=== PATIENT | male | born 1945 | race Caucasian/White ===

== ENCOUNTER → 2017-06-01 | Outpatient (CLI) | payer OTHER ==
[~2017-06-01] MED LIST: ASPEC81 PO; COLE625T PO; CRG25 PO; CRS10 PO; ENAL10TA88 PO; FURO80TA63 PO; HYDC25 PO; INDO-24 PO; MCR5 PO; POTA20TA16 PO; SITA100T3 PO; ULORIC PO
== END | disposition home or self-care (01) ==
LOC: C.MAMM 14:39
PROVIDERS: ATTEND Internal Medicine Endocrinology, Diabetes & Metabolism
DX: E21.3 Hyperparathyroidism, unspecified (principal)

== ENCOUNTER 2023-09-02 14:04 | Inpatient (IN) ==
--- NOTE | 2023-09-02 14:13 | ED Triage Note ---
Date of Service September 02, 2023 Provider in Triage Author: Chen Siddiqi History of Present Illness This patient was briefly evaluated while in triage. An abbreviated physical exam was performed. This patient is a 78-year-old Male who presents to the ED for evaluation of TAI x 3 weeks. Reports increased weight gain. On Lasix. Denies fevers, chest pain. Physical Exam Constitutional: alert and oriented x3. no acute distress. HEENT: normocephalic, atraumatic. normal conjunctiva.PERRLA. EOM's grossly intact. Respiratory:equal chest rise. normal respiratory effort, no accessory muscle use. Cardiovascular: regular rate and rhythm. MSK: moves all 4 extremities spontaneously Psych:appropriate mood and affect. Initial orders for labs and / or imaging were placed and patient was placed in the waiting area until a bed is available. Please see further documentation for the full ED course.
[2023-09-02 15:12] LABS: Base Excess VBG -0.8 mEq/L; HCO3 VBG 24 mmol/L; Oxygen Saturation VBG 73.6 %; PCO2 VBG 37 mmHg (38-50); PO2 VBG 46 mmHg; pH VBG 7.41 (7.36-7.41)
[2023-09-02 15:34] LABS: Alanine Aminotransferase 23 U/L (7-52); Albumin Globulin Ratio 1.4 (0.9-2); Albumin Level 3.7 gm/dl (3.4-5.0); Alkaline Phosphatase 57 U/L (34-104); Anion Gap 9 (3-11); Aspartate Aminotransferase 33 U/L (13-39); BUN Creatinine Ratio 36.9 (10-20); Bilirubin,Total 2.1 mg/dl (0.2-1.0); Blood Urea Nitrogen 55 mg/dl (6-23); Calcium 8.9 mg/dl (8.6-10.3); Carbon Dioxide 24 mmol/L (21-32); Chloride 99 mmol/L (98-107); Est GFR (African American) 51.7 ml/min; Est GFR (Non-African American) 44.6 ml/min; Globulin 2.6 gm/dl (2.5-4.0); Glucose 139 mg/dl (70-99(Fasting)); Sodium 132 mmol/L (136-145); Total Protein 6.3 gm/dl (6.0-8.3)
[2023-09-02 15:41] LABS: Troponin I High Sensitivity 24.4 pg/ml (0-20)
[2023-09-02 15:59] LABS: Adenovirus PCR Not Detected (NotDetected); Bordetella parapertussis PCR Not Detected (NotDetected); Bordetella pertussis PCR Not Detected (NotDetected); Chlamydia pneumoniae PCR Not Detected (NotDetected); Coronavirus 229E PCR Not Detected (NotDetected); Coronavirus CoV-2 (COVID19)PCR Not Detected (NotDetected); Coronavirus HKU1 PCR Not Detected (NotDetected); Coronavirus NL63 PCR Not Detected (NotDetected); Coronavirus OC43PCR Not Detected (NotDetected); Influenza A PCR Not Detected (NotDetected); Influenza B PCR Not Detected (NotDetected); Mycoplasma pneumoniae PCR Not Detected (NotDetected); Parainfluenza Virus 1 PCR Not Detected (NotDetected); Parainfluenza Virus 2 PCR Not Detected (NotDetected); Parainfluenza Virus 3 PCR Not Detected (NotDetected); Parainfluenza Virus 4 PCR Not Detected (NotDetected); Respiratory Syncytial VirusPCR Not Detected (NotDetected); Rhinovirus/Enterovirus PCR Not Detected (NotDetected)
[2023-09-02 16:00] LABS: INR 1.2 (0.9-1.1); Partial Thromboplastin Ratio 1.2; Partial Thromboplastin Time 33 Seconds (21-31); Prothrombin Time 12.6 Seconds (9.0-12.0)
[2023-09-02 16:05] LABS: Hematocrit (blood only) 32.2 % (42.0-52.0); Hemoglobin 10.7 g/dl (14.0-18.0); Mean Corpuscular Hemoglobin 29.7 pg (25.0-34.0); Mean Corpuscular Hgb Conc 33.2 g/dL (32.0-36.0); Mean Corpuscular Volume 89.4 fL (80.0-100.0); RDW Coefficient of Variation 16.6 % (11.5-14.5); RDW Standard Deviation 54.6 fL (36.4-46.3); White Blood Count 3.63 K/ul (4.8-10.8)
[2023-09-02 16:08] LABS: Acanthocytes 1+; Eosinophils # (auto) 0.05 K/uL (0.00-0.50); Eosinophils % (auto) 1.4 %; Human Metapneumovirus PCR DETECTED (NotDetected); Immature Granulocytes # (auto) 0.01 K/uL (0.01-0.20); Immature Granulocytes % (auto) 0.3 %; Lymphocytes # (auto) 0.42 K/uL (1.20-3.40); Lymphocytes % (auto) 11.6 %; Monocytes # (auto) 0.28 K/uL (0.11-0.59); Monocytes % (auto) 7.7 %; Neutrophils # (auto) 2.87 K/uL (1.40-6.50); Platelet Count 89 K/uL (130-400); Platelet Estimate Decreased (Normal); Tear Drop Cells 1+
--- NOTE | 2023-09-02 17:18 | XRay Report ---
XR chest 1V not portable CLINICAL HISTORY: Dyspnea TECHNIQUE: Single frontal radiograph of the chest was obtained. Comparison: None available at the time of this dictation. FINDINGS: No lines and tubes are seen. Cardiomegaly is noted. The lungs are clear. No evidence of pleural effus ion or pneumothorax. IMPRESSION: No acute chest disease. ACT 112: Negative or not required by law. Electronically signed by: Sukhjinder Alcazar M.D. 09/02/2023 5:17 PM
[2023-09-02] MEDS ORDERED: FUROSEMIDE 40 MG/4 ML VIAL IV ONE (19:18)
--- NOTE | 2023-09-02 19:37 | History & Physical Report ---
Date of Service September 02, 2023 Assessment & Plan (1) TAI (dyspnea on exertion): Plan: -Admit to med/tele on pulse oximetry -Currently hemodynamically stable and stable on RA -Has been experiencing progressive TAI, orthopnea, with increased non-productive cough for the past month -Likely multifactorial including acute human metapneumovirus infection and CHF exacerbation -He has rales and expiratory wheezing on exam, + JVD, and significant BL pitting edema -Patient confirms he has been gaining weight and becoming progressively more volume overloaded and was not taking additional doses of PO lasix as recommended by Cardiology -S/P one dose of 40 mg IV lasix in the ED, will continue with 40 mg IV BID17 for now -Will start incentive spirometry, flutter therapy, prn DuoNebs for his symptoms associated with human metapneumovirus -Lower suspiscion for PE at this time as he is without pleuritic chest pain, has been stable on RA, BP and HR WNL >Will obtain BL LE venous dopplers to monitor for DVT -Will obtain TTE tomorrow for further evaluation -Cardiology consult placed -Hold chemical DVT PPX for now with his new thrombocytopenia and MAIDA; start with BL AGGIE's -HH/DMII diet with 2gm sodium restriction and 1800 mL fluids restriction (2) MAIDA (acute kidney injury): Plan: -Patient's cr is 1.49 today, baseline is near 1.0 -Suspect this to be more associated with his congestive CHF and possible cardio- renal syndrome -Patient is volume overloaded on exam, has been taking most other medications as prescribed -Will obtain UA with electrolytes and renal US for further evaluation -Hold enalapril for now -Monitor renal function moving forward with continued diuresis (3) Volume overload: Plan: -Suspect this to mainly to be due to his known, severe, HFrEF and cardiomyopathy -However, with his thrombocytopenia and MAIDA, cannot rule out renal and hepatic etiologies at this time -Continue IV diuresis per TAI plan -Obtaining TTE, renal US, RUQ US as well -Monitor for improvement with continued diuresis -Cardiology consult placed (4) Thrombocytopenia: Plan: -Platelets noted to be 89 today -He does appear to have thrombocytopenia in the past, but platelets have never fallen below 124 previously -Could be due to acute viral illness -Will continue workup with RUQ us -Total bili is elevated but, this could be due to congestive hepatopathy or his known history of all other LFT's are WNL -Continue to monitor daily CBC and CMP (5) Hyponatremia: Plan: -Sodium of 132 today -suspect this is due to his volume overload with multiple possible etiologies -Will obtain serum osmolality, urine osmolality and electrolytes -Follow RUQ US -Monitor am sodium with IV diuresis (6) Elevated troponin: Plan: -Initial high sen trop elevated at 24 --> 24 on 2 hour repeat -Patient is without chest pain and acute ST segment or T-wave changes on ECG -Likely due to demand from volume overload -Continue to monitor on tele -TTE tomorrow, am trop (7) Infection due to human metapneumovirus (hMPV): Plan: -Positive today on full respiratory biofire -Does have expiratory wheezing on exam -Supportive treatment per TAI plan (8) Diabetes mellitus, type 2: Plan: -Has been controlling with diet and exercise -Glucose elevated at 139 today -Last Hgb A1c in May was 5.9 -Monitor BSG ACHS , goal is 110-140 -Start CF 50 ACHS for now -HH/DMII diet -Adjust regimen as needed (9) HFrEF (heart failure with reduced ejection fraction): Plan: -See TAI plan (10) Elevated bilirubin: Plan: -Elevated at 2.1 today -Has had a long hx of total bili in this range -Does have a known hx of Gilbert's syndrome -All other LFT's stable, no abd pain or jaundice -Follow liver workup and continue IV diuresis Plan The patient was discussed with Dr. Mccann at the time of the admission History of Present Illness Chief Complaint: TAI Primary Care Provider: Radha Banks MD Jonah Sandy (Jim) is a 78 year old male with a PMH significant for hypertension, DMII, hypercholesterolemia, systolic congestive heart failure, dilated cardiomyopathy (LVEF 25%, <20% December 2022), Gilbert's disease, Gout, and CKD who presented to the [facility] ED on 09/02/23 with a chief complaint of TAI. He remained stable in the ED. Labs were significant a thrombocytopenia of 89, lymphocyte count of 0.42, INR of 1.2, Cr of 1.49 (baseline is near 1.0), BUN of 55, sodium of 132, total bili of 2.1 with other LFT's WNL, initial high sen trop of 24, BNP of 4662, and full respiratory biofire positive for human metapneumovirus. Chest xray was read as "No acute chest disease.". Prior to admission the patient was given 40 mg IV lasix. At the time of the exam the patient was sitting in bed in no acute distress. He states that since Late July he has been gaining weight and has noticed increased BL LE swelling. In addition to these symptoms the patient states that he has intermittent episodes where he becomes SOB and feels as though he is having a panic attack. He states the majority of his TAI occurs while being active. When asked if he experiences orthopnea, the patient's response sounds similar. He states that he follows with Dr. Krishnamurthy and is supposed to take additional doses of his lasix after gaining 2lbs over his dry weight. He states that he did not do this recently as he thought he could improve him symptoms with lifestyle modifications. He has been controlling his DMII with diet and exercise as he previously lost 80 lbs. He has been experiencing a non-productive cough over the past 2-3 weeks but this has been worse over the past week. He denies recent fever, chills, chest pain, hemoptysis, abd pain, nausea, vomiting, diarrhea, dysuria, hematuria, melena, and recent trauma. He wishes to be a full code. Please refer to Dr. Mccann's attestation for any changes to the treatment plan Allergies Allergy/AdvReac Type Severity Reaction Status Date / Time No Known Drug Allergies Allergy Unknown Verified 09/02/23 19:53 Home Medications Medication Instructions Recorded Confirmed Type multivitamin (Daily Multi-Vitamin 1 tab PO 1200 03/02/19 09/02/23 History tablet) aspirin 81 mg tablet,delayed 81 mg PO 1200 07/12/19 09/02/23 History release (Irineo Low Dose Aspirin) cholecalciferol (vitamin D3) 125 5,000 unit PO DAILY 12/12/20 09/02/23 History mcg (5,000 unit) capsule omega-3 fatty acids 1,000 mg 1,000 mg PO DAILY 12/12/20 09/02/23 History capsule (Fish Oil Concentrate) lutein-zeaxanthin 1 cap PO DAILY 03/13/21 09/02/23 History baclofen 10 mg tablet 10 mg PO BID PRN muscle spasms 06/10/22 09/02/23 History Vitamin E 80 mg PO DAILY 03/10/23 09/02/23 History ascorbic acid (vitamin C) 100 mg 100 mg PO DAILY 03/10/23 09/02/23 History chewable tablet copper gluconate 2 mg tablet 2 mg PO DAILY 03/10/23 09/02/23 History zinc acetate 50 mg (zinc) capsule 50 mg PO DAILY 03/10/23 09/02/23 History allopurinol 100 mg tablet 50 mg PO BID 06/09/23 09/02/23 History carvedilol 25 mg tablet 25 mg PO BID #180 tabs 08/20/23 09/02/23 Rx enalapril maleate 10 mg tablet 10 mg PO DAILY #90 tabs 08/20/23 09/02/23 Rx potassium chloride 10 mEq 20 meq (2 x 10 mEq) PO DAILY #180 08/20/23 09/02/23 Rx tablet,extended release tabs atorvastatin 10 mg tablet 10 mg PO QPM 09/02/23 09/02/23 History furosemide 40 mg tablet 60 mg PO QPM 09/02/23 09/02/23 History gemfibrozil 600 mg tablet 150 mg PO BID 09/02/23 09/02/23 History Past Med/Surg History Medical History Abnormal CBC Gout Gilbert disease Fatty liver Hypertension Hyperlipidemia Arrhythmia "irregular" - Follows with Dr. Krishnamurthy Spindle cell carcinoma Basal cell carcinoma Diabetes mellitus, type 2 niddm Congestive heart failure Surgical History S/P wisdom tooth extraction History of liver biopsy History of colonoscopy History of cardiac cath 2004. no stents Status post Mohs surgery x6 Family History Father Hearing loss Hypertension Mother Brain tumor Other No family history of adverse response to anesthesia No family history of bleeding disorder Denies family history of Ovarian cancer Prostate cancer Myocardial infarction Breast cancer Colorectal cancer Social History Smoking Status: Never smoker Second Hand Exposure: No; Do You Dip or Chew Tobacco: No; Hx Alcohol Use: No Hx Substance Use: No Preferred Language: Czech Communication Ability: Effective Visual Impairment: No Limitations Hearing Ability: Normal Decision Support Analyst Required: No Beliefs That Will Affect Care: None marital status: Current Living Situation: Alone current occupational status: retired How many Children do You have: 1 Feels Safe at Home: Yes Childhood Exposure to Second-Hand Smoke: No Diet: Weight Watchers caffeine: Yes (tea) during the past year weight has: remained stable Dental Care, Regularly: Yes Physical Activity Frequency: Daily Physical Activity Frequency Comment: Does Fit for Play. Seatbelt Use: always Sunscreen Use: No Assistive Devices: Cane, Glasses, Scooter/Electric Scooter and Walker Physical Exam Physical Exam: Physical Exam: General: In no acute distress, stated age, well-nourished, good hygiene HEENT: Normocephalic, atraumatic, no scleral icterus, pupils around round, symmetrical, and reactive to light, +JVD, moist mucus membranes, trachea midline, no thyromegaly Chest/Pulm: No respiratory distress, symmetrical chest expansion, rales and expiratory wheezing noted throughout Cardiac: RRR, 4/6 systolic murmur noted Abdomen: Negative for ascites and bruising, normoactive bowel sounds, soft, non-tender to palpation throughout Musculoskeletal: Symmetrical and without signs of acute trauma, upper and lower extremities with full ROM, no atrophy, spasticity, or flaccidity Extremities: Radial, dorsalis pedis, and posterior tibial pulses are intact and symmetrical, 2-3+ pitting edema noted in the BL LE's Skin: Warm, dry, no rashes , lesions, or scars noted Neuro: Alert and oriented to person, place, month, year, and president, no focal defects, no tremors noted Psych: No acute distress, calm and cooperative during the exam Results & Data Results & Data Vital Signs (Past 12 Hours) Vital Signs Temp Pulse Resp BP Pulse Ox O2 Del Method 09/02/23 14:10 36.8 C 62 20 96/63 L 99 Room Air Laboratory Results Abnormal lab results 09/02/23 09/02/23 Range/Units 14:51 19:33 WBC 3.63 L (4.8-10.8) K/ul RBC 3.60 L (4.70-6.10) M/uL Hgb 10.7 L (14.0-18.0) g/dl Hct 32.2 L (42.0-52.0) % RDW Std Deviation 54.6 H (36.4-46.3) fL RDW Coeff of Candido 16.6 H (11.5-14.5) % Plt Count 89 L (130-400) K/uL MPV 13.0 H (9.4-12.4) fL Lymph # (Auto) 0.42 L (1.20-3.40) K/uL Platelet Estimate Decreased L (Normal) PT 12.6 H (9.0-12.0) Seconds INR 1.2 H (0.9-1.1) APTT 33 H (21-31) Seconds VBG pCO2 37 L (38-50) mmHg Sodium 132 L (136-145) mmol/L BUN 55 H (6-23) mg/dl Creatinine 1.49 H (0.6-1.4) mg/dl BUN/Creatinine Ratio 36.9 H (10-20) Glucose 139 H (70-99(Fasting)) mg/dl Total Bilirubin 2.1 H (0.2-1.0) mg/dl Troponin I High Sens 24.4 H 24.7 H (0-20) pg/ml B-Natriuretic Peptide 4662 H (0-100) pg/ml Human Metapneumovir PCR DETECTED A* (NotDetected) Diagnostic Findings Chest X-Ray 09/02/23 14:13 XR chest 1V not portable CLINICAL HISTORY: Dyspnea TECHNIQUE: Single frontal radiograph of the chest was obtained. Comparison: None available at the time of this dictation. FINDINGS: No lines and tubes are seen. Cardiomegaly is noted. The lungs are clear. No evidence of pleural effusion or pneumothorax. IMPRESSION: No acute chest disease. ACT 112: Negative or not required by law. Electronically signed by: Sukhjinder Alcazar M.D. 09/02/2023 5:17 PM ECG Additional Comments: Sinus bradycardia with 1st degree A-V block with occasional Premature ventricular complexes Left axis deviation Left bundle branch block Abnormal ECG When compared with ECG of 23-MAR-2010 17:09, Premature ventricular complexes are now Present WA interval has increased T wave inversion less evident in Lateral leads Code Status & VTE Plan Code Status Full code VTE Prophylaxis Plan VTE Prophylaxis will be ordered: Yes Supervising Physician Co-Signing Physician Notes Attending addendum: I have physically seen this patient, have supervised the PAULETTE's activities, and agree with the H&P unless as otherwise noted. Assessment and Plan: Elevated troponin/CHF/hypertension/HFrEF/cardiomyopathy- The patient will be admitted to telemetry for serial cardiac enzymes, serial EKG's, cardiac rhythm monitoring and a 2-D echocardiogram with Dopplers. Status post Lasix 40 mg IV in ED Hold further Lasix until response assessed Holding enalapril Continue carvedilol and aspirin Resume oral furosemide 60 mg daily tomorrow Acute kidney injury- Creatinine 1.49, with base 1.17 Follow closely while being diuresed Human metapneumir virus- May be contributing to physiologic stress Duonebs every 4 hours while awake and every 2 hours when necessary Guaifenesin extended release 12 1 mg p.o. twice daily Incentive spirometry, flutter therapy Diabetes mellitus- Diet controlled Remaining orders and notations as noted PG Care Time/CCT Total # of Minutes Spent Total Time Spent with Patient: Total time spent is greater than 50% in coordination of care (as documented) at patient's floor/unit and/or counseling patient: Coding [place] [address] INT INP/OBS CARE 3/75MIN Patient Type Established Medical Decision Making High Complexity Diagnoses TAI (dyspnea on exertion) R06.09 MAIDA (acute kidney injury) N17.9 Volume overload E87.70 Thrombocytopenia D69.6 Hyponatremia E87.1 Elevated troponin R79.89 Infection due to human metapneumovirus (hMPV) B34.8 Type 2 diabetes mellitus with chronic kidney disease, without long-term current use of insulin, unspecified CKD stage E11.22 Chronic kidney disease stage: unspecified stage Diabetes mellitus complication detail: with chronic kidney disease Diabetes mellitus complication status: with kidney complications Diabetes mellitus commission for the blind director insulin use: without commission for the blind director use HFrEF (heart failure with reduced ejection fraction) I50.20 Elevated bilirubin R17 (8) Diabetes mellitus, type 2 Chronic kidney disease stage: unspecified stage Diabetes mellitus complication detail: with chronic kidney disease Diabetes mellitus complication status: with kidney complications Diabetes mellitus commission for the blind director insulin use: without commission for the blind director use Qualified Code(s): E11.22 - Type 2 diabetes mellitus with diabetic chronic kidney disease
[2023-09-02 20:16] LABS: Troponin I High Sensitivity 24.7 pg/ml (0-20)
[2023-09-02] MEDS ORDERED: ACETAMINOPHEN 325 MG TAB PO PRN (20:27)
[2023-09-02] MEDS ORDERED: ALBUT/IPRATROP 3MG/0.5MG NEB 3 ML VIAL NEB STA (20:32)
[2023-09-02] MEDS ORDERED: GLUCAGON FOR INJ 1 MG VIAL SQ PRN (20:33)
[2023-09-02] MEDS ORDERED: DEXTROSE 50% 50 ML SYRINGE IV PRN (20:33)
[2023-09-02] MEDS ORDERED: GLUCOSE 10 TAB/TUBE PO PRN (20:33)
[2023-09-02] MEDS ORDERED: GLUCOSE 40% GEL 15 GM TUBE PO PRN (20:33)
[2023-09-02] MEDS ORDERED: CARBOHYDRATES FOR HYPOGLYCEMIA PO PRN (20:33)
[2023-09-02] MEDS ORDERED: guaiFENesin SUGAR FREE 200 MG/10 ML UDC PO PRN (20:42)
[2023-09-02 21:13] LABS: Appearance Urine Clear (Clear); Bilirubin Urine Negative (Negative); Blood Urine Negative (Negative); Color Urine Yellow; Glucose Urine UA Negative (Negative); Ketones Urine Negative (Negative); Leukocyte Esterase Urine Negative (Negative); Nitrite Urine Negative (Negative); Protein Urine Negative (Negative); Specific Gravity Urine 1.008 (1.000-1.030); Urobilinogen Urine Negative (Negative)
[2023-09-02 21:15] LABS: Sodium Random Urine 52 mmol/L; Total Protein Urine Random < 4.0 mg/dl (0-11.9)
--- NOTE | 2023-09-02 21:22 | Emergency Department Note ---
History of Present Illness General Chief Complaint: Flu Like Symptoms Stated Complaint: COUGH, NOSE RUNNING Time Seen by Provider: 09/02/23 14:48 History of Present Illness Provider Complaint: shortness of breath and cough Onset (ago): week(s) (3) Consistency/Duration: + progressively worsening Relieved By: + rest Exacerbated By: + exertion and + coughing Known history of: congestive heart failure Associated symptoms: + cough, + wheezing, + sputum production and + chest congestion; no chest pain, no pain with inspiration, no fever, no orthopnea, no hemoptysis, no nausea/vomiting or no abdominal pain Related Data Home oxygen amount: none Home Medications Medication Instructions Recorded Confirmed Type multivitamin (Daily Multi-Vitamin 1 tab PO 1200 03/02/19 09/02/23 History tablet) aspirin 81 mg tablet,delayed 81 mg PO 1200 07/12/19 09/02/23 History release (Irineo Low Dose Aspirin) cholecalciferol (vitamin D3) 125 5,000 unit PO DAILY 12/12/20 09/02/23 History mcg (5,000 unit) capsule omega-3 fatty acids 1,000 mg 1,000 mg PO DAILY 12/12/20 09/02/23 History capsule (Fish Oil Concentrate) lutein-zeaxanthin 1 cap PO DAILY 03/13/21 09/02/23 History baclofen 10 mg tablet 10 mg PO BID PRN muscle spasms 06/10/22 09/02/23 History Vitamin E 80 mg PO DAILY 03/10/23 09/02/23 History ascorbic acid (vitamin C) 100 mg 100 mg PO DAILY 03/10/23 09/02/23 History chewable tablet copper gluconate 2 mg tablet 2 mg PO DAILY 03/10/23 09/02/23 History zinc acetate 50 mg (zinc) capsule 50 mg PO DAILY 03/10/23 09/02/23 History allopurinol 100 mg tablet 50 mg PO BID 06/09/23 09/02/23 History carvedilol 25 mg tablet 25 mg PO BID #180 tabs 08/20/23 09/02/23 Rx enalapril maleate 10 mg tablet 10 mg PO DAILY #90 tabs 08/20/23 09/02/23 Rx potassium chloride 10 mEq 20 meq (2 x 10 mEq) PO DAILY #180 08/20/23 09/02/23 Rx tablet,extended release tabs atorvastatin 10 mg tablet 10 mg PO QPM 09/02/23 09/02/23 History furosemide 40 mg tablet 60 mg PO QPM 09/02/23 09/02/23 History gemfibrozil 600 mg tablet 150 mg PO BID 09/02/23 09/02/23 History Allergies Allergy/AdvReac Type Severity Reaction Status Date / Time No Known Drug Allergies Allergy Unknown Verified 09/02/23 19:53 Past Med/Surg History Medical History Abnormal CBC Gout Gilbert disease Fatty liver Hypertension Hyperlipidemia Arrhythmia "irregular" - Follows with Dr. Krishnamurthy Spindle cell carcinoma Basal cell carcinoma Diabetes mellitus, type 2 niddm Congestive heart failure Surgical History S/P wisdom tooth extraction History of liver biopsy History of colonoscopy History of cardiac cath 2004. 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 Seatbelt Use: always Sunscreen Use: No Assistive Devices: Cane, Glasses, Scooter/Electric Scooter and Walker Physical Exam 2 Vital Signs: Vital Signs - 24 hr 09/02/23 14:10 09/02/23 19:36 09/02/23 21:00 Temperature 36.8 C Temperature Source Temporal Artery Sc an Pulse Rate 62 Respiratory Rate 20 Respiratory Effort / Characteristics Spontaneous Respiratory Depth Normal Respiratory Patter n Regular Blood Pressure 96/63 L Blood Pressure [Ri ght Arm] 137/88 Blood Pressure Fany n 74 Blood Pressure Fany n [Right Arm] 104 Blood Pressure Pos ition Sitting Pulse Oximetry 99 96 Oxygen Delivery Me thod Room Air Room Air Sepsis Recent Feve r Within 48 Hours No Sepsis New/Unexpla ined Change in Men ventura Status No Sepsis Action Take n by Nursing No Action Required Physical Exam: Physical Exam GENERAL: oriented to person, place, and time. appears well-developed and well- nourished. HENT: Exam performed. - Head: Normocephalic and atraumatic. EYES: Conjunctivae and EOM are normal. Right eye exhibits no discharge. Left eye exhibits no discharge. No scleral icterus. NECK: Normal range of motion. Neck supple. No JVD present. CV: Normal rate, regular rhythm, normal heart sounds and intact distal pulses. There is no peripheral edema. Palpable radial pulses bue. PULM/CHEST: Rhonchi bilaterally ABD: The abdomen is soft. There is no tenderness. NEURO: Motor and sensation grossly intact. SKIN: Skin is warm and dry. He is not diaphoretic. PSYCH: normal mood and affect. Behavior is normal. Judgment and thought content normal. Course Course 1448: The patient was evaluated in room D7. A complete history and physical exam was performed Cardiac monitoring: An order was placed for continuous cardiac monitoring. The monitor shows a rate of 60 with sinus rhythm interpreted by pa 1915: Vital signs stable. Labs show an elevated troponin and elevated proBNP. Chest x-ray viewed by pa shows cardiomegaly with cephalization. Patient is positive for human metapneumovirus. Is thought that the patient's human metapneumovirus could have exacerbated his CHF exacerbation. Given his poor ejection fraction elevated proBNP and elevated troponin as well as symptoms. Patient will be admitted for diuresis. [facility] hospitalist team contacted. Administered Medications Discontinued Medications Furosemide (Furosemide 40 Mg/4 Ml Vial) 40 mg IV ONE ONE Stop: 09/02/23 19:19 Last Admin: 09/02/23 19:35 Dose: 40 mg Documented By: ALEJANDRA Medical Decision Making Medical Records Attestation: I reviewed the patient's medical records. External medical records reviewed. Patient has an echo from December 2022 which shows an ejection fraction between 15 and 20% as well as severe global hypokinesis of the left ventricle with reduced ventricular systolic function. There is moderate to severe mitral regurgitation as well as mild to moderate tricuspid regurgitation with no significant change from the echocardiogram performed on November 23, 2009 Laboratory Data Attestation: I reviewed the patient's lab results. 09/02/23 14:51 09/02/23 14:51 Lab Results 09/02/23 09/02/23 09/02/23 Range/Units 14:51 19:33 20:28 WBC 3.63 L (4.8-10.8) K/ul RBC 3.60 L (4.70-6.10) M/uL Hgb 10.7 L (14.0-18.0) g/dl Hct 32.2 L (42.0-52.0) % MCV 89.4 (80.0-100.0) fL MCH 29.7 (25.0-34.0) pg MCHC 33.2 (32.0-36.0) g/dL RDW Std Deviation 54.6 H (36.4-46.3) fL RDW Coeff of Candido 16.6 H (11.5-14.5) % Plt Count 89 L (130-400) K/uL MPV 13.0 H (9.4-12.4) fL Immature Gran % (Auto) 0.3 % Neut % (Auto) 79.0 % Lymph % (Auto) 11.6 % [place] % (Auto) 7.7 % Eos % (Auto) 1.4 % Baso % (Auto) 0.0 % Neut # (Auto) 2.87 (1.40-6.50) K/uL Lymph # (Auto) 0.42 L (1.20-3.40) K/uL [place] # (Auto) 0.28 (0.11-0.59) K/uL Eos # (Auto) 0.05 (0.00-0.50) K/uL Baso # (Auto) 0.00 (0.00-0.20) K/uL Immature Gran # (Auto) 0.01 (0.01-0.20) K/uL Platelet Estimate Decreased L (Normal) Tear Drop Cells 1+ Acanthocytes (Spur) 1+ PT 12.6 H (9.0-12.0) Seconds INR 1.2 H (0.9-1.1) APTT 33 H (21-31) Seconds PTT Ratio 1.2 VBG pH 7.41 (7.36-7.41) VBG pCO2 37 L (38-50) mmHg VBG pO2 46 mmHg VBG HCO3 24 mmol/L VBG O2 Saturation 73.6 % VBG Base Excess -0.8 mEq/L Sodium 132 L (136-145) mmol/L Potassium 4.0 (3.5-5.1) mmol/L Chloride 99 (98-107) mmol/L Carbon Dioxide 24 (21-32) mmol/L Anion Gap 9 (3-11) BUN 55 H (6-23) mg/dl Creatinine 1.49 H (0.6-1.4) mg/dl Est Cr Clr Drug Dosing Not Reportable Est GFR ( Amer) 51.7 ml/min Est GFR (Non-Af Amer) 44.6 ml/min BUN/Creatinine Ratio 36.9 H (10-20) Glucose 139 H (70-99(Fasting)) mg/dl Osmolality 297 (280-300) mOsm/kg Calcium 8.9 (8.6-10.3) mg/dl Magnesium 2.0 (1.7-2.4) mg/dl Total Bilirubin 2.1 H (0.2-1.0) mg/dl AST 33 (13-39) U/L ALT 23 (7-52) U/L Alkaline Phosphatase 57 (34-104) U/L Troponin I High Sens 24.4 H 24.7 H (0-20) pg/ml B-Natriuretic Peptide 4662 H (0-100) pg/ml Total Protein 6.3 (6.0-8.3) gm/dl Albumin 3.7 (3.4-5.0) gm/dl Globulin 2.6 (2.5-4.0) gm/dl Albumin/Globulin Ratio 1.4 (0.9-2) Urine Color Yellow Urine Appearance Clear (Clear) Urine pH 6.0 (4.5-7.5) Ur Specific [place] 1.008 (1.000-1.030) Urine Protein Negative (Negative) Urine Glucose (UA) Negative (Negative) Urine Ketones Negative (Negative) Urine Blood Negative (Negative) Urine Nitrite Negative (Negative) Urine Bilirubin Negative (Negative) Urine Urobilinogen Negative (Negative) Ur Leukocyte Esterase Negative (Negative) Urine Osmolality 285 L (500-800) mOsm/kg U Random Total Protein < 4.0 (0-11.9) mg/dl Ur Random Sodium 52 mmol/L Adenovirus (PCR) Not Detected (NotDetected) B. pertussis DNA (PCR) Not Detected (NotDetected) B.parapertussis DNA PCR Not Detected (NotDetected) C. pneumoniae DNA (PCR) Not Detected (NotDetected) Coronavirus OC43 (PCR) Not Detected (NotDetected) Coronavirus HKU1 (PCR) Not Detected (NotDetected) Coronavirus 229E (PCR) Not Detected (NotDetected) SARS-CoV-2 (PCR) Not Detected (NotDetected) Coronavirus NL63 (PCR) Not Detected (NotDetected) Human Metapneumovir PCR DETECTED A* (NotDetected) Influenza Type A (PCR) Not Detected (NotDetected) Influenza Type B (PCR) Not Detected (NotDetected) M. pneumoniae (PCR) Not Detected (NotDetected) Parainfluenza 1 (PCR) Not Detected (NotDetected) Parainfluenza 2 (PCR) Not Detected (NotDetected) Parainfluenza 3 (PCR) Not Detected (NotDetected) Parainfluenza 4 (PCR) Not Detected (NotDetected) RSV (PCR) Not Detected (NotDetected) Entero/Rhino (PCR) Not Detected (NotDetected) Imaging Data My Impression: Chest x-ray: Cardiomegaly with cephalization Radiologist's Impression: Chest X-Ray 09/02/23 14:13 XR chest 1V not portable CLINICAL HISTORY: Dyspnea TECHNIQUE: Single frontal radiograph of the chest was obtained. Comparison: None available at the time of this dictation. FINDINGS: No lines and tubes are seen. Cardiomegaly is noted. The lungs are clear. No evidence of pleural effusion or pneumothorax. IMPRESSION: No acute chest disease. ACT 112: Negative or not required by law. Electronically signed by: Sukhjinder Alcazar M.D. 09/02/2023 5:17 PM ECG Data Attestation: I personally reviewed and interpreted this ECG as follows: Interpretation: EKG at 1440: Sinus rhythm with a rate of 59. MS 240 QRS 204 QTc 534. Left bundle branch block present. sgarbosa negative. No previous EKGs for comparison [facility] Narrative 1448: The patient was evaluated in room D7. A complete history and physical exam was performed Cardiac monitoring: An order was placed for continuous cardiac monitoring. The monitor shows a rate of 60 with sinus rhythm interpreted by me 1915: Vital signs stable. Labs show an elevated troponin and elevated proBNP. Chest x-ray viewed by me shows cardiomegaly with cephalization. Patient is positive for human metapneumovirus. Is thought that the patient's human metapneumovirus could have exacerbated his CHF exacerbation. Given his poor ejection fraction elevated proBNP and elevated troponin as well as symptoms. Patient will be admitted for diuresis. [facility] hospitalist team contacted. Impression & Plan Congestive heart failure Discharge Plan Visit Data Chief Complaint: Flu Like Symptoms Stated Complaint: COUGH, NOSE RUNNING ED Provider: Alo Hernandez Discharge Problem: Congestive heart failure Patient Disposition: Admitted As Inpatient Forms Stand Alone Forms: My [facility] Prescriptions Prescriptions: No Action carvedilol 25 mg tablet 25 mg PO BID Qty: 180 3RF enalapril maleate 10 mg tablet 10 mg PO DAILY Qty: 90 3RF potassium chloride 10 mEq tablet extended release 20 meq PO DAILY Qty: 180 3RF baclofen 10 mg tablet 10 mg PO BID PRN (Reason: muscle spasms) cholecalciferol (vitamin D3) 125 mcg (5,000 unit) capsule 5,000 unit PO DAILY omega-3 fatty acids [Fish Oil Concentrate] 1,000 mg capsule 1,000 mg PO DAILY allopurinol 100 mg tablet 50 mg PO BID Rx Instructions: Take 1/2 a tablet in the morning and 1/2 a tablet at night. multivitamin [Daily Multi-Vitamin] tablet 1 tab PO 1200 lutein-zeaxanthin 1 cap PO DAILY Rx Instructions: 1 25 mg-5 mg tab daily ascorbic acid (vitamin C) 100 mg tablet,chewable 100 mg PO DAILY copper gluconate 2 mg tablet 2 mg PO DAILY zinc acetate 50 mg (zinc) capsule 50 mg PO DAILY Vitamin E 80 mg PO DAILY aspirin [Irineo Low Dose Aspirin] 81 mg Tablet,Delayed Release (Dr/Ec) 81 mg PO 1200 furosemide 40 mg tablet 60 mg PO QPM atorvastatin 10 mg tablet 10 mg PO QPM gemfibrozil 600 mg tablet 150 mg PO BID Rx Instructions: 150 mg PO BID 30 MINUTES BEFORE MEALS Referrals Referrals: Radha Banks MD [Primary Care Provider] -
[2023-09-02 21:26] LABS: Creatinine Urine Random 25.5 mg/dl
[2023-09-02] MEDS: INSULIN ASPART PER UNIT CHARGE SC SCH (22:03)
--- NOTE | 2023-09-02 23:52 | Ultrasound Report ---
Exam(s): US VENOUS BILATERAL LOWER EXTREMITIES EXAM: US Duplex Bilateral Lower Extremities Veins CLINICAL HISTORY: TAI, LE swelling. TECHNIQUE: Real-time duplex ultrasound scan of the bilateral lower extremity veins integrating B-mode two-dimensional vascular structure, Doppler spectral analysis, color flow Doppler imaging and compression. COMPARISON: No relevant prior studies available. FINDINGS: Right deep veins: Unremarkable. No DVT in the right common femoral, femoral, proximal deep femoral or popliteal veins. The veins demonstrate normal color flow, are normally compressible, with normal phasic flow and/or augmentation response. The interrogated calf veins are patent. Right superficial veins: Unremarkable. No thrombus in the saphenofemoral junction. Left deep veins: Unremarkable. No DVT in the left common femoral, femoral, proximal deep femoral or popliteal veins. The veins demonstrate normal color flow, are normally compressible, with normal phasic flow and/or augmentation response. The interrogated calf veins are patent. Left superficial veins: Unremarkable. No thrombus in the saphenofemoral junction. Soft tissues: Subcutaneous edema noted at the calves bilaterally. No popliteal cyst. IMPRESSION: No evidence for deep vein thrombosis involving the bilateral lower extremities. Electronically signed by: Benja Mckinney MD 09/02/23 23:51 PM
--- NOTE | 2023-09-02 23:56 | Ultrasound Report ---
Exam(s): US LIVER EXAM: US Abdomen Limited CLINICAL HISTORY: thrombocytopenia. TECHNIQUE: Real-time ultrasound of the abdomen with image documentation. COMPARISON: No relevant prior studies available. FINDINGS: Liver: The liver is hyperechoic, measuring 15.1 cm. No free fluid. The portal vein is pain with flow directed towards the liver. Gallbladder: Echogenic gallstones and sludge noted in the gallbladder. The gallbladder wall is abnormally thickened, measuring 6 mm. No pericholecystic fluid. There is a reported negative sonographic Kate sign. Common bile duct: The common bile duct is within normal limits for the patient's age measuring 5.5 mm. Pancreas: The pancreas is obscured by bowel gas pattern. IMPRESSION: 1. Echogenic gallstones and sludge noted in the gallbladder. The gallbladder wall is abnormally thickened, measuring 6 mm. While there are no other findings to suggest acute cholecystitis, abnormal gallbladder wall thickening is suggestive of acute cholecystitis. The sensitivity of this finding is diminished in the setting of cirrhosis or low plasma proteins. 2. No biliary dilatation. 3. The liver is hyperechoic suggesting hepatic steatosis. Electronically signed by: Benja Mckinney MD 09/02/23 23:55 PM
--- NOTE | 2023-09-03 | Ultrasound Report ---
Exam(s): US RENAL EXAM: US Retroperitoneal Limited, Renal CLINICAL HISTORY: MAIDA. TECHNIQUE: Real-time limited ultrasound of the retroperitoneum with image documentation. COMPARISON: No relevant prior studies available. FINDINGS: Right kidney: The right kidney measures 11.4 cm in length. Right renal pelviectasis measuring 1.5 cm in AP diameter. No calyceal dilatation. There is a simple cyst involving the lateral aspect of the right kidney measuring 13 x 16 mm. No stones. Left kidney: The left kidney measures 10.6 cm in length. No stones. No hydronephrosis. Bladder: The bladder is moderately distended without wall abnormalities or calcifications. The ureteral jets are not identified. IMPRESSION: 1. Distention of the right renal pelvis is nonspecific but presumed normal variation without coexisting calyceal dilatation. No obstructive nephrolithiasis noted bilaterally. 2. Incidental cortical cyst involving the lateral aspect of the right kidney measuring 1.3 x 1.6 cm. 3. The bladder is unremarkable. Electronically signed by: Benja Mckinney MD 09/02/23 23:59 PM
[2023-09-03] MEDS ORDERED: ALBUT/IPRATROP 3MG/0.5MG NEB 3 ML VIAL NEB PRN (00:09)
[2023-09-03] MEDS: carvediloL 25 MG TAB PO SCH ×3 (01:10→20:31)
[2023-09-03 01:47] LABS: Albumin Level 3.9 gm/dl (3.4-5.0); Anion Gap 14 (3-11); BUN Creatinine Ratio 39.4 (10-20); Blood Urea Nitrogen 56 mg/dl (6-23); Calcium 9.2 mg/dl (8.6-10.3); Carbon Dioxide 18 mmol/L (21-32); Chloride 101 mmol/L (98-107); Est GFR (African American) 54.8 ml/min; Est GFR (Non-African American) 47.3 ml/min; Glucose 92 mg/dl (70-99(Fasting)); Magnesium 2.2 mg/dl (1.7-2.4); Phosphorus 3.8 mg/dl (2.5-4.9); Potassium 4.2 mmol/L (3.5-5.1); Sodium 133 mmol/L (136-145)
[2023-09-03] MEDS: ATORVASTATIN 10 MG TAB PO SCH ×2 (02:06→20:31)
[2023-09-03] MEDS: allopurinoL 100 MG TAB PO SCH ×3 (02:06→20:31)
[2023-09-03 05:10] LABS: Basophils # (auto) 0.01 K/uL (0.00-0.20); Basophils % (auto) 0.3 %; Eosinophils % (auto) 3.1 %; Hematocrit (blood only) 31.5 % (42.0-52.0); Hemoglobin 10.2 g/dl (14.0-18.0); Lymphocytes # (auto) 0.57 K/uL (1.20-3.40); Lymphocytes % (auto) 17.7 %; Mean Corpuscular Hemoglobin 29.4 pg (25.0-34.0); Mean Corpuscular Hgb Conc 32.4 g/dL (32.0-36.0); Mean Corpuscular Volume 90.8 fL (80.0-100.0); Mean Platelet Volume 11.8 fL (9.4-12.4); Monocytes # (auto) 0.36 K/uL (0.11-0.59); Monocytes % (auto) 11.2 %; Neutrophils # (auto) 2.18 K/uL (1.40-6.50); Neutrophils % (auto) 67.7 %; Platelet Count 85 K/uL (130-400); RDW Coefficient of Variation 16.6 % (11.5-14.5); RDW Standard Deviation 55.2 fL (36.4-46.3); Red Blood Count 3.47 M/uL (4.70-6.10); White Blood Count 3.22 K/ul (4.8-10.8)
[2023-09-03 05:25] LABS: Albumin Globulin Ratio 1.4 (0.9-2); Albumin Level 3.4 gm/dl (3.4-5.0); BUN Creatinine Ratio 39.6 (10-20); Bilirubin,Total 1.8 mg/dl (0.2-1.0); Calcium 8.9 mg/dl (8.6-10.3); Creatinine Clr Calc Pharmacy 47.4 ml/min; Est GFR (African American) 56.3 ml/min; Est GFR (Non-African American) 48.5 ml/min; Globulin 2.4 gm/dl (2.5-4.0); Magnesium 2.1 mg/dl (1.7-2.4); Potassium 3.4 mmol/L (3.5-5.1); Total Protein 5.8 gm/dl (6.0-8.3)
[2023-09-03 05:31] LABS: Troponin I High Sensitivity 27.4 pg/ml (0-20)
[2023-09-03 05:45] LABS: INR 1.2 (0.9-1.1)
[2023-09-03 07:16] LABS: Estimated Average Glucose 126 mg/dl
[2023-09-03] MEDS ORDERED: POTASSIUM CHLORIDE CRTAB 20 MEQ TABCR PO STA (08:28)
[2023-09-03] MEDS: gemfibroziL 600 MG TAB PO SCH ×2 (08:31→17:39)
[2023-09-03] MEDS: ASCORBIC ACID 500 MG TAB PO SCH (09:32)
[2023-09-03] MEDS: TOCOPHERYL, DL-ALPHA 100 UNITS 67 MG CAP PO SCH (09:32)
[2023-09-03] MEDS: ZINC SULFATE 220 MG CAPSULE PO SCH (09:32)
[2023-09-03] MEDS: FUROSEMIDE 40 MG/4 ML VIAL IV SCH ×2 (09:37→17:39)
[2023-09-03] MEDS: POTASSIUM CHLORIDE CRTAB 20 MEQ TABCR PO SCH (10:05)
[2023-09-03] MEDS: INSULIN ASPART PER UNIT CHARGE SC SCH ×4 (10:13→20:33)
--- NOTE | 2023-09-03 10:44 | XCELERA ---
[id number]
[2023-09-03] MEDS: ASPIRIN 81 MG ECTAB PO SCH (13:05)
--- NOTE | 2023-09-03 17:38 | Hospitalist Progress Note ---
Date of Service September 03, 2023 Assessment & Plan (1) HFrEF (heart failure with reduced ejection fraction): Plan: Patient presents with acute on chronic systolic congestive heart failure He is experienced progressive dyspnea on exertion, orthopnea, increased cough, weight gain over the past few weeks Echocardiogram shows EF that is severely low at 15 to 20%, same as December 2022 he received 40 mg of IV Lasix in the emergency room with good urine output and feeling better overall. His Lasix dose was held this morning due to low blood pressure readings Cardiology consulted. He sees Dr. Krishnamurthy outpatient. Most recent visit in 07/02. Awaiting recommendations from cardiology He is ordered 40 mg of IV Lasix twice daily This episode of acute exacerbation is most likely related to dietary noncompliance versus viral illness Sodium restriction and fluid restriction (2) TAI (dyspnea on exertion): Plan: See above (3) MAIDA (acute kidney injury): Plan: -Patient's cr is 1.49 Baseline 1 Slightly improved today at 1.3 -Suspect this to be more associated with his congestive CHF and possible cardio- renal syndrome -Patient is volume overloaded on exam, has been taking most other medications as prescribed -Renal ultrasound negative -Hold enalapril for now -Monitor renal function moving forward with continued diuresis (4) Volume overload: Plan: -Suspect this to mainly to be due to his known, severe, HFrEF and cardiomyopathy -Continue IV diuresis -Monitor for improvement with continued diuresis -Cardiology consult placed (5) Thrombocytopenia: Plan: -Platelets noted to be 89 on admission. Remain in the 80s today. -He does appear to have thrombocytopenia in the past, but platelets have never fallen below 124 previously -Could be due to acute viral illness -Right upper quadrant ultrasound shows hepatic steatosis -Total bili is elevated but, this could be due to congestive hepatopathy or his known history of all other LFT's are WNL -Continue to monitor daily CBC and CMP (6) Hyponatremia: Plan: -Sodium of 132, improved to 137 with diuresis -suspect this is due to his volume overload (7) Elevated troponin: Plan: -Initial high sen trop elevated at 24 --> 24 on 2 hour repeat -Patient is without chest pain and acute ST segment or T-wave changes on ECG -Likely due to demand from volume overload -Continue to monitor on tele TTE showed no wall motion abnormalities. 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 He tells me that over the last few weeks to months, he has been having more processed food better sodium rich. He has been gaining weight. After he got the IV Lasix, he feels later and less congested. Review of Systems Review of Systems: All systems reviewed & are unremarkable except as noted in Subjective Physical Exam Physical Exam: General: Awake, conversant Heart: S1, S2/regular rate and rhythm, no murmur rubs or gallops Lungs: Bibasilar crackles. Abdomen: Soft/nontender/nondistended. No hepatosplenomegaly Extremities: No clubbing/cyanosis. 2+ pitting bilateral edema Behavior: Appropriate, cooperative Results & Data Results & Data Vital Signs (Past 12 Hours) Vital Signs Pulse Resp BP Pulse Ox Pulse Ox O2 Del Method O2 Del Method 09/03/23 15:10 67 09/03/23 14:03 91/60 L 09/03/23 14:03 59 L 17 95 09/03/23 13:30 96/66 L 09/03/23 13:01 60 15 97 09/03/23 13:01 94/80 L 09/03/23 12:30 99/71 L 09/03/23 12:30 59 L 16 09/03/23 12:00 105/74 09/03/23 12:00 57 L 20 09/03/23 11:30 94/74 L 09/03/23 11:30 63 17 98 09/03/23 11:01 58 L 17 98 09/03/23 11:01 94/64 L 09/03/23 10:30 97/62 L 09/03/23 10:30 58 L 22 98 09/03/23 10:00 60 18 96 09/03/23 10:00 103/63 09/03/23 09:30 60 13 99 09/03/23 09:30 98/66 L 09/03/23 09:01 53 L 16 96 09/03/23 09:01 98/52 L 09/03/23 08:44 Room Air 09/03/23 08:31 53 L 21 09/03/23 08:31 92/57 L 09/03/23 08:30 54 L 35 H 09/03/23 08:02 48 L 18 99 09/03/23 08:02 86/62 L 09/03/23 08:00 53 L 19 95 09/03/23 07:30 90/66 L 09/03/23 07:30 59 L 16 99 09/03/23 07:14 98 Room Air 09/03/23 07:09 45 L 09/03/23 07:00 51 L 21 94 09/03/23 07:00 85/58 L Laboratory Results Abnormal lab results 09/02/23 09/02/23 09/03/23 Range/Units 19:33 20:28 04:35 WBC 3.22 L (4.8-10.8) K/ul RBC 3.47 L (4.70-6.10) M/uL Hgb 10.2 L (14.0-18.0) g/dl Hct 31.5 L (42.0-52.0) % RDW Std Deviation 55.2 H (36.4-46.3) fL RDW Coeff of Candido 16.6 H (11.5-14.5) % Plt Count 85 L (130-400) K/uL Lymph # (Auto) 0.57 L (1.20-3.40) K/uL Immature Gran # (Auto) 0.00 L (0.01-0.20) K/uL PT 13.0 H (9.0-12.0) Seconds INR 1.2 H (0.9-1.1) Sodium 133 L (136-145) mmol/L Potassium 3.4 L (3.5-5.1) mmol/L Carbon Dioxide 18 L (21-32) mmol/L Anion Gap 14 H (3-11) BUN 56 H 55 H (6-23) mg/dl Creatinine 1.42 H (0.6-1.4) mg/dl BUN/Creatinine Ratio 39.4 H 39.6 H (10-20) Glucose 142 H (70-99(Fasting)) mg/dl POC Glucose (70-99) mg/dl Hemoglobin A1c 6.0 H (4.5-5.6) % Total Bilirubin 1.8 H (0.2-1.0) mg/dl Troponin I High Sens 24.7 H 27.4 H (0-20) pg/ml Total Protein 5.8 L (6.0-8.3) gm/dl Globulin 2.4 L (2.5-4.0) gm/dl Urine Osmolality 285 L (500-800) mOsm/kg 09/03/23 09/03/23 09/03/23 Range/Units 08:34 12:12 16:21 WBC (4.8-10.8) K/ul RBC (4.70-6.10) M/uL Hgb (14.0-18.0) g/dl Hct (42.0-52.0) % RDW Std Deviation (36.4-46.3) fL RDW Coeff of Candido (11.5-14.5) % Plt Count (130-400) K/uL Lymph # (Auto) (1.20-3.40) K/uL Immature Gran # (Auto) (0.01-0.20) K/uL PT (9.0-12.0) Seconds INR (0.9-1.1) Sodium (136-145) mmol/L Potassium (3.5-5.1) mmol/L Carbon Dioxide (21-32) mmol/L Anion Gap (3-11) BUN (6-23) mg/dl Creatinine (0.6-1.4) mg/dl BUN/Creatinine Ratio (10-20) Glucose (70-99(Fasting)) mg/dl POC Glucose 101 H 133 H 129 H (70-99) mg/dl Hemoglobin A1c (4.5-5.6) % Total Bilirubin (0.2-1.0) mg/dl Troponin I High Sens (0-20) pg/ml Total Protein (6.0-8.3) gm/dl Globulin (2.5-4.0) gm/dl Urine Osmolality (500-800) mOsm/kg PG Care Time/CCT Total # of Minutes Spent Total Time Spent with Patient: Total time spent is greater than 50% in coordination of care (as documented) at patient's floor/unit and/or counseling patient: Coding Level of Care Code 64488 SUB INP/OBS CARE 2/35MIN Diagnoses HFrEF (heart failure with reduced ejection fraction) I50.20 TAI (dyspnea on exertion) R06.09 MAIDA (acute kidney injury) N17.9 Volume overload E87.70 Thrombocytopenia D69.6 Hyponatremia E87.1 Elevated troponin R79.89 Infection due to human metapneumovirus (hMPV) B34.8 Type 2 diabetes mellitus with chronic kidney disease, without long-term current use of insulin, unspecified CKD stage E11.22 Diabetes mellitus joint terminal attack controller insulin use: without joint terminal attack controller use Diabetes mellitus complication status: with kidney complications Diabetes mellitus complication detail: with chronic kidney disease Chronic kidney disease stage: unspecified stage Elevated bilirubin R17 (9) Diabetes mellitus, type 2 Diabetes mellitus detention insulin use: without detention use Diabetes mellitus complication status: with kidney complications Diabetes mellitus complication detail: with chronic kidney disease Chronic kidney disease stage: unspecified stage Qualified Code(s): E11.22 - Type 2 diabetes mellitus with diabetic chronic kidney disease
--- NOTE | 2023-09-03 17:44 | Cardiology Consultation ---
Date of Consultation September 03, 2023 Assessment & Plan (1) Cardiomyopathy: (2) HFrEF (heart failure with reduced ejection fraction): (3) TAI (dyspnea on exertion): (4) Mitral regurgitation: Plan 1. Acute decompensated systolic heart failure: He has long history of very rob re nonischemic cardiomyopathy. His symptoms are consistent with volume overload. Curious that his chest x-ray did not demonstrate significant pulmonary edema. Lung examination is abnormal, but not particularly consistent with pulmonary edema. In any event, he clearly has hypovolemia and would benefit from continued diuresis. He has affected some diuresis with 2 doses of Lasix. I will continue the current regimen. We can monitor his electrolytes and renal function. 2. Cardiomyopathy: Longstanding. Severe. Outpatient regimen consists of carvedilol, enalapril and furosemide. Unclear if he would tolerate spironolactone with its mild antihypertensive affect. He does appear to be a good candidate for an SG LT 2 inhibitor. Degree of LV dysfunction he would be in a category of patients were generally advised to consider an ICD as primary prevention against sudden cardiac . 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 Current devices are MRI compatible. 3. Dyspnea on exertion: This may be more related to his metapneumovirus. His lung exam is certainly consistent with an infectious process rather than pulmonary edema. However, will affect diuresis as noted above in either event. Remainder of care simply supportive. 4. Mitral regurgitation: Severe. Likely contributing to some of his failure. However, not a candidate for intervention given his significant LV dysfunction. History of Present Illness Reason for Consultation: Congestive heart failure Requesting Physician: Theodora Attending Physician: Stacey Gomez MD History of Present Illness The patient is a 78-year-old gentleman with a long history of a nonischemic dilated cardiomyopathy presents to the hospital with symptoms of shortness of breath. Patient reported some coughing and mild respiratory symptoms over the past few days. He did not report fevers, chills or myalgias. He has been noticing a slow increase in his weight over several weeks. He keeps track of this closely. He has not been using p.r.n. Lasix, but was hoping the changes in his diet would somehow reduce his weight. He has also noticed some lower extremity edema and erythema. In the emergency room he was diagnosed with human metapneumovirus and also felt to have an element of pulmonary vascular congestion and volume overload. Currently received 2 doses of diuretics. He feels that his breathing is improved. Still has some coughing but the phlegm is more clear and less viscous. He did states that he thinks he has been eating more salt lately. He has some element of orthostatic dizziness which is unchanged. No sense of palpitation recently. No presyncope. He did report symptoms associated with sleeping that could be interpreted as orthopnea and paroxysmal nocturnal dyspnea. Allergies Allergy/AdvReac Type Severity Reaction Status Date / Time No Known Drug Allergies Allergy Unknown Verified 09/02/23 19:53 Home Medications Medication Instructions Recorded Confirmed Type multivitamin (Daily Multi-Vitamin 1 tab PO 1200 03/02/19 09/02/23 History tablet) aspirin 81 mg tablet,delayed 81 mg PO 1200 07/12/19 09/02/23 History release (Irineo Low Dose Aspirin) cholecalciferol (vitamin D3) 125 5,000 unit PO DAILY 12/12/20 09/02/23 History mcg (5,000 unit) capsule omega-3 fatty acids 1,000 mg 1,000 mg PO DAILY 12/12/20 09/02/23 History capsule (Fish Oil Concentrate) lutein-zeaxanthin 1 cap PO DAILY 03/13/21 09/02/23 History baclofen 10 mg tablet 10 mg PO BID PRN muscle spasms 06/10/22 09/02/23 History Vitamin E 80 mg PO DAILY 03/10/23 09/02/23 History ascorbic acid (vitamin C) 100 mg 100 mg PO DAILY 03/10/23 09/02/23 History chewable tablet copper gluconate 2 mg tablet 2 mg PO DAILY 03/10/23 09/02/23 History zinc acetate 50 mg (zinc) capsule 50 mg PO DAILY 03/10/23 09/02/23 History allopurinol 100 mg tablet 50 mg PO BID 06/09/23 09/02/23 History carvedilol 25 mg tablet 25 mg PO BID #180 tabs 08/20/23 09/02/23 Rx enalapril maleate 10 mg tablet 10 mg PO DAILY #90 tabs 08/20/23 09/02/23 Rx potassium chloride 10 mEq 20 meq (2 x 10 mEq) PO DAILY #180 08/20/23 09/02/23 Rx tablet,extended release tabs atorvastatin 10 mg tablet 10 mg PO QPM 09/02/23 09/02/23 History furosemide 40 mg tablet 60 mg PO QPM 09/02/23 09/02/23 History gemfibrozil 600 mg tablet 150 mg PO BID 09/02/23 09/02/23 History Patient History Medical History Abnormal CBC Gout Gilbert disease Fatty liver Hypertension Hyperlipidemia Arrhythmia "irregular" - Follows with Dr. Krishnamurthy Spindle cell carcinoma Basal cell carcinoma Diabetes mellitus, type 2 niddm Congestive heart failure Surgical History S/P wisdom tooth extraction History of liver biopsy History of colonoscopy History of cardiac cath 2004. no stents Status post Mohs surgery x6 Family History Father Hearing loss Hypertension Mother Brain tumor Other No family history of adverse response to anesthesia No family history of bleeding disorder Denies family history of Ovarian cancer Prostate cancer Myocardial infarction Breast cancer Colorectal cancer Social History Smoking Status: Never smoker Second Hand Exposure: No; Do You Dip or Chew Tobacco: No; Hx Alcohol Use: No Hx Substance Use: No Preferred Language: Gu[place]an Communication Ability: Effective Visual Impairment: No Limitations Hearing Ability: Normal Gambling Broker Required: No Beliefs That Will Affect Care: None marital status: Current Living Situation: Alone current occupational status: retired How many Children do You have: 1 Feels Safe at Home: Yes Childhood Exposure to Second-Hand Smoke: No Diet: Weight Watchers caffeine: Yes (tea) during the past year weight has: remained stable Dental Care, Regularly: Yes Physical Activity Frequency: Daily Physical Activity Frequency Comment: Does Fit for Play. Seatbelt Use: always Sunscreen Use: No Assistive Devices: Cane, Glasses, Scooter/Electric Scooter and Walker Review of Systems Review of Systems: Per HPI Physical Exam Physical Exam: The patient is alert and oriented. Mood and affect appeared normal. He answered all questions appropriately. HEENT: Pupils are equal and reactive to light and accommodation. Extraocular movements are intact. The sclerae are anicteric. Neuro: Cranial nerves intact Lungs: Bronchial and parenchymal breath sounds with some expiratory wheezing. Very few rales. Normal respiratory effort. Cardiac: Heart demonstrates a regular rate and rhythm with occasional ectopy. Normal S1 and S2. Holosystolic murmur. Pulses: The patient has palpable radial pulses bilaterally that are equal in intensity Extremities: There was no evidence of hypoperfusion. There is no cyanosis or clubbing. Moderate bilateral lower extremity edema with significant erythema on both legs. Skin: I did not appreciate any rashes on examination today. Results & Data Vital Signs (Past 12 Hours) Vital Signs Pulse Resp BP Pulse Ox Pulse Ox O2 Del Method O2 Del Method 09/03/23 17:00 103/72 09/03/23 17:00 67 15 94 09/03/23 16:30 98/67 L 09/03/23 16:30 64 19 94 09/03/23 16:00 55 L 16 96 09/03/23 16:00 99/64 L 09/03/23 15:31 97/64 L 09/03/23 15:31 63 19 99 09/03/23 15:30 64 19 98 09/03/23 15:10 67 09/03/23 15:01 96/73 L 09/03/23 15:01 59 L 13 97 09/03/23 15:00 56 L 16 99 09/03/23 14:30 96/65 L 09/03/23 14:30 53 L 16 96 09/03/23 14:03 91/60 L 09/03/23 14:03 59 L 17 95 09/03/23 13:30 96/66 L 09/03/23 13:01 60 15 97 09/03/23 13:01 94/80 L 09/03/23 12:30 99/71 L 09/03/23 12:30 59 L 16 09/03/23 12:00 105/74 09/03/23 12:00 57 L 20 09/03/23 11:30 94/74 L 09/03/23 11:30 63 17 98 09/03/23 11:01 58 L 17 98 09/03/23 11:01 94/64 L 09/03/23 10:30 97/62 L 09/03/23 10:30 58 L 22 98 09/03/23 10:00 60 18 96 09/03/23 10:00 103/63 01/25/24 09:30 60 13 99 09/03/23 09:30 98/66 L 09/03/23 09:01 53 L 16 96 09/03/23 09:01 98/52 L 09/03/23 08:44 Room Air 09/03/23 08:31 53 L 21 09/03/23 08:31 92/57 L 09/03/23 08:30 54 L 35 H 09/03/23 08:02 48 L 18 99 09/03/23 08:02 86/62 L 09/03/23 08:00 53 L 19 95 09/03/23 07:30 90/66 L 09/03/23 07:30 59 L 16 99 09/03/23 07:14 98 Room Air 09/03/23 07:09 45 L 09/03/23 07:00 51 L 21 94 09/03/23 07:00 85/58 L Laboratory Results Abnormal Lab Results 09/02/23 09/02/23 09/02/23 14:51 19:33 20:28 WBC RBC Hgb Hct MCV MCH MCHC RDW Std Deviation RDW Coeff of Candido Plt Count MPV Immature Gran % (Auto) Neut % (Auto) Lymph % (Auto) [place] % (Auto) Eos % (Auto) Baso % (Auto) Neut # (Auto) Lymph # (Auto) [place] # (Auto) Eos # (Auto) Baso # (Auto) Immature Gran # (Auto) PT INR Sodium 133 L Potassium 4.2 Chloride 101 Carbon Dioxide 18 L Anion Gap 14 H BUN 56 H Creatinine 1.42 H Est Cr Clr Drug Dosing Not Reportable Est GFR ( Amer) 54.8 Est GFR (Non-Af Amer) 47.3 BUN/Creatinine Ratio 39.4 H Glucose 92 POC Glucose Estimat Average Glucose Hemoglobin A1c Osmolality 297 Calcium 9.2 Phosphorus 3.8 Magnesium 2.2 Total Bilirubin AST ALT Alkaline Phosphatase Troponin I High Sens 24.7 H Total Protein Albumin 3.9 Globulin Albumin/Globulin Ratio Urine Color Yellow Urine Appearance Clear Urine pH 6.0 Ur Specific [place] 1.008 Urine Protein Negative Urine Glucose (UA) Negative Urine Ketones Negative Urine Blood Negative Urine Nitrite Negative Urine Bilirubin Negative Urine Urobilinogen Negative Ur Leukocyte Esterase Negative Urine Osmolality 285 L Ur Random Creatinine 25.5 U Random Total Protein < 4.0 Ur Random Sodium 52 Protein/Creatinin Ratio TNP 09/02/23 09/03/23 09/03/23 21:57 04:35 08:34 WBC 3.22 L RBC 3.47 L Hgb 10.2 L Hct 31.5 L MCV 90.8 MCH 29.4 MCHC 32.4 RDW Std Deviation 55.2 H RDW Coeff of Candido 16.6 H Plt Count 85 L MPV 11.8 Immature Gran % (Auto) 0.0 Neut % (Auto) 67.7 Lymph % (Auto) 17.7 [place] % (Auto) 11.2 Eos % (Auto) 3.1 Baso % (Auto) 0.3 Neut # (Auto) 2.18 Lymph # (Auto) 0.57 L [place] # (Auto) 0.36 Eos # (Auto) 0.10 Baso # (Auto) 0.01 Immature Gran # (Auto) 0.00 L PT 13.0 H INR 1.2 H Sodium 137 Potassium 3.4 L Chloride 103 Carbon Dioxide 26 Anion Gap 8 BUN 55 H Creatinine 1.39 Est Cr Clr Drug Dosing 47.4 Est GFR ( Amer) 56.3 Est GFR (Non-Af Amer) 48.5 BUN/Creatinine Ratio 39.6 H Glucose 142 H POC Glucose 98 101 H Estimat Average Glucose 126 Hemoglobin A1c 6.0 H Osmolality Calcium 8.9 Phosphorus Magnesium 2.1 Total Bilirubin 1.8 H AST 29 ALT 21 Alkaline Phosphatase 56 Troponin I High Sens 27.4 H Total Protein 5.8 L Albumin 3.4 Globulin 2.4 L Albumin/Globulin Ratio 1.4 Urine Color Urine Appearance Urine pH Ur Specific [place] Urine Protein Urine Glucose (UA) Urine Ketones Urine Blood Urine Nitrite Urine Bilirubin Urine Urobilinogen Ur Leukocyte Esterase Urine Osmolality Ur Random Creatinine U Random Total Protein Ur Random Sodium Protein/Creatinin Ratio 09/03/23 09/03/23 12:12 16:21 WBC RBC Hgb Hct MCV MCH MCHC RDW Std Deviation RDW Coeff of Candido Plt Count MPV Immature Gran % (Auto) Neut % (Auto) Lymph % (Auto) [place] % (Auto) Eos % (Auto) Baso % (Auto) Neut # (Auto) Lymph # (Auto) [place] # (Auto) Eos # (Auto) Baso # (Auto) Immature Gran # (Auto) PT INR Sodium Potassium Chloride Carbon Dioxide Anion Gap BUN Creatinine Est Cr Clr Drug Dosing Est GFR ( Amer) Est GFR (Non-Af Amer) BUN/Creatinine Ratio Glucose POC Glucose 133 H 129 H Estimat Average Glucose Hemoglobin A1c Osmolality Calcium Phosphorus Magnesium Total Bilirubin AST ALT Alkaline Phosphatase Troponin I High Sens Total Protein Albumin Globulin Albumin/Globulin Ratio Urine Color Urine Appearance Urine pH Ur Specific [place] Urine Protein Urine Glucose (UA) Urine Ketones Urine Blood Urine Nitrite Urine Bilirubin Urine Urobilinogen Ur Leukocyte Esterase Urine Osmolality Ur Random Creatinine U Random Total Protein Ur Random Sodium Protein/Creatinin Ratio Diagnostic Findings Chest x-ray obtained the time admission not reveal any acute cardiopulmonary process. PG Care Time/CCT Total # of Minutes Spent Total Time Spent with Patient: Total time spent is greater than 50% in coordination of care (as documented) at patient's floor/unit and/or counseling patient: Coding Level of Care Code 30970 INT INP/OBS CARE 3/75MIN Diagnoses Cardiomyopathy I42.9 HFrEF (heart failure with reduced ejection fraction) I50.20 TAI (dyspnea on exertion) R06.09 Mitral regurgitation I34.0
--- NOTE | 2023-09-03 19:50 | Electrocardiogram Report ---
Test Reason : Blood Pressure : / mmHG Vent. Rate : 059 BPM Atrial Rate : 059 BPM P-R Int : 240 ms QRS Dur : 204 ms QT Int : 540 ms P-R-T Axes : -03 -39 116 degrees QTc Int : 534 ms Sinus bradycardia with 1st degree A-V block with occasional Premature ventricular complexes Left axis deviation Left bundle branch block Abnormal ECG When compared with ECG of 23-MAR-2010 17:09, Premature ventricular complexes are now Present [place] interval has increased T wave inversion less evident in Lateral leads Confirmed by Kash Waite ([id number] on 09/03/2023 7:50:36 PM Referred By: Confirmed By:Willy Waite
[2023-09-04 07:18] LABS: Basophils # (auto) 0.01 K/uL (0.00-0.20); Basophils % (auto) 0.3 %; Eosinophils # (auto) 0.15 K/uL (0.00-0.50); Eosinophils % (auto) 4.8 %; Hematocrit (blood only) 30.8 % (42.0-52.0); Hemoglobin 10.1 g/dl (14.0-18.0); Immature Granulocytes # (auto) 0.01 K/uL (0.01-0.20); Immature Granulocytes % (auto) 0.3 %; Lymphocytes # (auto) 0.49 K/uL (1.20-3.40); Lymphocytes % (auto) 15.6 %; Mean Corpuscular Hgb Conc 32.8 g/dL (32.0-36.0); Mean Corpuscular Volume 91.4 fL (80.0-100.0); Mean Platelet Volume 12.5 fL (9.4-12.4); Monocytes # (auto) 0.36 K/uL (0.11-0.59); Monocytes % (auto) 11.5 %; Neutrophils # (auto) 2.12 K/uL (1.40-6.50); Neutrophils % (auto) 67.5 %; Platelet Count 92 K/uL (130-400); RDW Coefficient of Variation 16.7 % (11.5-14.5); RDW Standard Deviation 56.2 fL (36.4-46.3); Red Blood Count 3.37 M/uL (4.70-6.10); White Blood Count 3.14 K/ul (4.8-10.8)
[2023-09-04 07:56] LABS: Albumin Globulin Ratio 1.5 (0.9-2); Albumin Level 3.4 gm/dl (3.4-5.0); BUN Creatinine Ratio 38.4 (10-20); Bilirubin,Total 1.6 mg/dl (0.2-1.0); Calcium 9.1 mg/dl (8.6-10.3); Creatinine Clr Calc Pharmacy 52.7 ml/min; Est GFR (Non-African American) 55.2 ml/min; Globulin 2.2 gm/dl (2.5-4.0); Potassium 3.5 mmol/L (3.5-5.1); Total Protein 5.6 gm/dl (6.0-8.3)
[2023-09-04 07:59] LABS: INR 1.2 (0.9-1.1); Prothrombin Time 12.7 Seconds (9.0-12.0)
[2023-09-04] MEDS: ZINC SULFATE 220 MG CAPSULE PO SCH (08:59)
[2023-09-04] MEDS: POTASSIUM CHLORIDE CRTAB 20 MEQ TABCR PO SCH (08:59)
[2023-09-04] MEDS: ASCORBIC ACID 500 MG TAB PO SCH (08:59)
[2023-09-04] MEDS: carvediloL 25 MG TAB PO SCH ×2 (08:59→20:08)
[2023-09-04] MEDS: INSULIN ASPART PER UNIT CHARGE SC SCH ×4 (08:59→20:10)
[2023-09-04] MEDS: allopurinoL 100 MG TAB PO SCH ×2 (09:00→20:09)
[2023-09-04] MEDS: gemfibroziL 600 MG TAB PO SCH ×2 (09:00→17:03)
[2023-09-04] MEDS: TOCOPHERYL, DL-ALPHA 100 UNITS 67 MG CAP PO SCH (09:00)
[2023-09-04] MEDS: FUROSEMIDE 40 MG/4 ML VIAL IV SCH ×2 (09:01→17:04)
[2023-09-04] MEDS: ASPIRIN 81 MG ECTAB PO SCH (13:03)
--- NOTE | 2023-09-04 16:41 | Hospitalist Progress Note ---
Date of Service September 04, 2023 Assessment & Plan (1) HFrEF (heart failure with reduced ejection fraction): Plan: - Patient presents with acute on chronic systolic congestive heart failure He is experienced progressive dyspnea on exertion, orthopnea, increased cough, weight gain over the past few weeks Echocardiogram shows EF that is severely low at 15 to 20%, same as December 2022 His dose of Lasix IV was held yesterday in the morning due to low blood pressure readings. However he has received his Lasix doses since then. He is now on a 40 mg IV twice daily dosing He is diuresing well Cardiology on board This episode of acute exacerbation is most likely related to dietary noncompliance versus viral illness Sodium restriction and fluid restriction (2) TAI (dyspnea on exertion): Plan: See above (3) MAIDA (acute kidney injury): Plan: -Patient's cr is 1.49 today, baseline is near 1.0 -Suspect this to be more associated with his congestive CHF and possible cardio- renal syndrome Creatinine came down to 1.25 today with diuresis -Patient is volume overloaded on exam, has been taking most other medications as prescribed -Will obtain UA with electrolytes and renal US for further evaluation -Hope to resume enalapril soon -Monitor renal function moving forward with continued diuresis (4) Volume overload: Plan: -Suspect this to mainly to be due to his known, severe, HFrEF and cardiomyopathy -Continue IV diuresis -Monitor for improvement with continued diuresis -Cardiology on board (5) Thrombocytopenia: Plan: -Platelets noted to be 92 today -He does appear to have thrombocytopenia in the past, but platelets have never fallen below 124 previously -Could be due to acute viral illness (6) Hyponatremia: Plan: -Resolved with diuresis Most likely related to volume overload (7) Elevated troponin: Plan: -Initial high sen trop elevated at 24 --> 24 on 2 hour repeat -Patient is without chest pain and acute ST segment or T-wave changes on ECG -Demand ischemia from volume overload -Continue to monitor on tele (8) Infection due to human metapneumovirus (hMPV): Plan: -Supportive treatment (9) Diabetes mellitus, type 2: Plan: -Has been controlling with diet and exercise -Glucose elevated at 139 today -Last Hgb A1c in May was 5.9 -Monitor BSG ACHS , goal is 110-140 -Start CF 50 ACHS for now -HH/DMII diet -Adjust regimen as needed (10) Elevated bilirubin: Plan: -Elevated at 2.1 today -Has had a long hx of total bili in this range -Does have a known hx of Gilbert's syndrome -All other LFT's stable, no abd pain or jaundice -Continue IV diuresis (11) Pancytopenia: Plan: Most likely secondary to viral illness with human metapneumovirus Admission and Anticipated Discharge Date Admission Date: September 02, 2023 Subjective Patient received his evening dose of Lasix yesterday and morning dose of Lasix this morning. He says he is feeling better, less congested. Review of Systems Review of Systems: All systems reviewed & are unremarkable except as noted in Subjective Physical Exam Physical Exam: General: Awake, conversant Heart: S1, S2/regular rate and rhythm, no murmur rubs or gallops Lungs: Bibasilar crackles but improved breath sounds today. Abdomen: Soft/nontender/nondistended. No hepatosplenomegaly Extremities: No clubbing/cyanosis. 2+ pitting bilateral edema Behavior: Appropriate, cooperative Results & Data Results & Data Vital Signs (Past 12 Hours) Vital Signs Temp Pulse Pulse Resp BP Pulse Ox Pulse Ox 09/04/23 15:36 36.3 C L 60 18 102/70 98 09/04/23 14:43 81 09/04/23 11:35 60 18 102/68 97 09/04/23 11:23 09/04/23 07:47 36.5 C 60 17 115/73 97 09/04/23 07:27 55 L 09/04/23 07:00 94 O2 Del Method O2 Del Method 09/04/23 15:36 Room Air 09/04/23 14:43 09/04/23 11:35 Room Air 09/04/23 11:23 Room Air 09/04/23 07:47 Room Air 09/04/23 07:27 09/04/23 07:00 Room Air Laboratory Results Abnormal lab results 09/03/23 09/04/23 09/04/23 Range/Units 20:27 06:28 12:19 WBC 3.14 L (4.8-10.8) K/ul RBC 3.37 L (4.70-6.10) M/uL Hgb 10.1 L (14.0-18.0) g/dl Hct 30.8 L (42.0-52.0) % RDW Std Deviation 56.2 H (36.4-46.3) fL RDW Coeff of Candido 16.7 H (11.5-14.5) % Plt Count 92 L (130-400) K/uL MPV 12.5 H (9.4-12.4) fL Lymph # (Auto) 0.49 L (1.20-3.40) K/uL PT 12.7 H (9.0-12.0) Seconds INR 1.2 H (0.9-1.1) BUN 48 H (6-23) mg/dl BUN/Creatinine Ratio 38.4 H (10-20) POC Glucose 118 H 138 H (70-99) mg/dl Total Bilirubin 1.6 H (0.2-1.0) mg/dl Total Protein 5.6 L (6.0-8.3) gm/dl Globulin 2.2 L (2.5-4.0) gm/dl PG Care Time/CCT Total # of Minutes Spent Total Time Spent with Patient: Total time spent is greater than 50% in coordination of care (as documented) at patient's floor/unit and/or counseling patient: Coding Level of Care Code 59472 SUB INP/OBS CARE 2/35MIN Diagnoses HFrEF (heart failure with reduced ejection fraction) I50.20 TAI (dyspnea on exertion) R06.09 MAIDA (acute kidney injury) N17.9 Volume overload E87.70 Thrombocytopenia D69.6 Hyponatremia E87.1 Elevated troponin R79.89 Infection due to human metapneumovirus (hMPV) B34.8 Type 2 diabetes mellitus with chronic kidney disease, without long-term current use of insulin, unspecified CKD stage E11.22 Diabetes mellitus senior living insulin use: without termite treater use Diabetes mellitus complication status: with kidney complications Diabetes mellitus complication detail: with chronic kidney disease Chronic kidney disease stage: unspecified stage Elevated bilirubin R17 Pancytopenia D61.818 (9) Diabetes mellitus, type 2 Diabetes mellitus termite treater insulin use: without senior living use Diabetes mellitus complication status: with kidney complications Diabetes mellitus complication detail: with chronic kidney disease Chronic kidney disease stage: unspecified stage Qualified Code(s): E11.22 - Type 2 diabetes mellitus with diabetic chronic kidney disease
[2023-09-04] MEDS: ATORVASTATIN 10 MG TAB PO SCH (20:08)
[2023-09-05 07:03] LABS: Basophils # (auto) 0.02 K/uL (0.00-0.20); Basophils % (auto) 0.7 %; Eosinophils # (auto) 0.17 K/uL (0.00-0.50); Eosinophils % (auto) 5.8 %; Hematocrit (blood only) 31.6 % (42.0-52.0); Hemoglobin 10.4 g/dl (14.0-18.0); Immature Granulocytes # (auto) 0.01 K/uL (0.01-0.20); Immature Granulocytes % (auto) 0.3 %; Lymphocytes # (auto) 0.73 K/uL (1.20-3.40); Mean Corpuscular Hemoglobin 29.5 pg (25.0-34.0); Mean Corpuscular Hgb Conc 32.9 g/dL (32.0-36.0); Mean Corpuscular Volume 89.5 fL (80.0-100.0); Mean Platelet Volume 12.8 fL (9.4-12.4); Monocytes # (auto) 0.31 K/uL (0.11-0.59); Monocytes % (auto) 10.6 %; Neutrophils # (auto) 1.68 K/uL (1.40-6.50); Neutrophils % (auto) 57.6 %; Platelet Count 106 K/uL (130-400); RDW Coefficient of Variation 16.8 % (11.5-14.5); RDW Standard Deviation 54.8 fL (36.4-46.3); Red Blood Count 3.53 M/uL (4.70-6.10); White Blood Count 2.92 K/ul (4.8-10.8)
[2023-09-05 07:36] LABS: Albumin Globulin Ratio 1.5 (0.9-2); Albumin Level 3.6 gm/dl (3.4-5.0); BUN Creatinine Ratio 32.8 (10-20); Bilirubin,Total 1.6 mg/dl (0.2-1.0); Calcium 9.1 mg/dl (8.6-10.3); Creatinine Clr Calc Pharmacy 48.1 ml/min; Est GFR (African American) 57.3 ml/min; Est GFR (Non-African American) 49.4 ml/min; Globulin 2.4 gm/dl (2.5-4.0); Magnesium 2.1 mg/dl (1.7-2.4); Potassium 3.7 mmol/L (3.5-5.1)
[2023-09-05 07:39] LABS: INR 1.2 (0.9-1.1); Prothrombin Time 12.7 Seconds (9.0-12.0)
[2023-09-05] MEDS: INSULIN ASPART PER UNIT CHARGE SC SCH ×4 (08:51→20:06)
[2023-09-05] MEDS: allopurinoL 100 MG TAB PO SCH ×2 (09:08→20:04)
[2023-09-05] MEDS: carvediloL 25 MG TAB PO SCH ×2 (09:09→20:09)
[2023-09-05] MEDS: gemfibroziL 600 MG TAB PO SCH ×2 (09:09→17:45)
[2023-09-05] MEDS: ASCORBIC ACID 500 MG TAB PO SCH (09:10)
[2023-09-05] MEDS: ZINC SULFATE 220 MG CAPSULE PO SCH (09:11)
[2023-09-05] MEDS: TOCOPHERYL, DL-ALPHA 100 UNITS 67 MG CAP PO SCH (09:11)
[2023-09-05] MEDS: POTASSIUM CHLORIDE CRTAB 20 MEQ TABCR PO SCH (09:27)
[2023-09-05] MEDS: FUROSEMIDE 40 MG/4 ML VIAL IV SCH (09:27)
[2023-09-05] MEDS: ASPIRIN 81 MG ECTAB PO SCH (13:01)
--- NOTE | 2023-09-05 14:28 | Hospitalist Progress Note ---
Date of Service September 05, 2023 Assessment & Plan (1) HFrEF (heart failure with reduced ejection fraction): Plan: - Patient presents with acute on chronic systolic congestive heart failure He is experienced progressive dyspnea on exertion, orthopnea, increased cough, weight gain over the past few weeks Echocardiogram shows EF that is severely low at 15 to 20%, same as December 2022 He is now on a 40 mg IV twice daily dosing He is diuresing well Cardiology on board Will back off on IV Lasix. He already got 1 dose this morning. Will reduce to once daily dosing from twice daily dosing This episode of acute exacerbation is most likely related to dietary noncompliance versus viral illness Sodium restriction and fluid restriction (2) TAI (dyspnea on exertion): Plan: See above (3) MAIDA (acute kidney injury): Plan: -Patient's cr is 1.49 today, baseline is near 1.0 -Suspect this to be more associated with his congestive CHF and possible cardio- renal syndrome Creatinine came down. 1.37 today. Reduced IV Lasix to once daily dosing -Patient is still volume overloaded on exam, has been taking most other medi cations as prescribed -Hope to resume enalapril soon -Monitor renal function moving forward with continued diuresis (4) Volume overload: Plan: -Suspect this to mainly to be due to his known, severe, HFrEF and cardiomyopathy -Continue IV diuresis but reduce to once daily dosing -Monitor for improvement with continued diuresis -Cardiology on board (5) Thrombocytopenia: Plan: -Platelets noted to be low -He does appear to have thrombocytopenia in the past, but platelets have never fallen below 124 previously -Could be due to acute viral illness (6) Hyponatremia: Plan: -Resolved with diuresis Most likely related to volume overload (7) Elevated troponin: Plan: -Initial high sen trop elevated at 24 --> 24 on 2 hour repeat -Patient is without chest pain and acute ST segment or T-wave changes on ECG -Demand ischemia from volume overload -Continue to monitor on tele (8) Infection due to human metapneumovirus (hMPV): Plan: -Supportive treatment (9) Diabetes mellitus, type 2: Plan: -Has been controlling with diet and exercise -Glucose elevated at 139 today -Last Hgb A1c in May was 5.9 -Monitor BSG ACHS , goal is 110-140 -Start CF 50 ACHS for now -HH/DMII diet -Adjust regimen as needed (10) Elevated bilirubin: Plan: -Elevated at 2.1 today -Has had a long hx of total bili in this range -Does have a known hx of Gilbert's syndrome -All other LFT's stable, no abd pain or jaundice -Continue IV diuresis (11) Pancytopenia: Plan: Most likely secondary to viral illness with human metapneumovirus Admission and Anticipated Discharge Date Admission Date: September 02, 2023 Subjective Patient says that this morning he woke up feeling thirsty and dehydrated. But still noted to have 2+ pitting edema. He already received 40 mg of IV Lasix this morning. Review of Systems Review of Systems: All systems reviewed & are unremarkable except as noted in Subjective Physical Exam Physical Exam: General: Awake, conversant Heart: S1, S2/regular rate and rhythm, no murmur rubs or gallops Lungs: Bibasilar crackles much less. Improved breath sounds today. Normal effort Abdomen: Soft/nontender/nondistended. No hepatosplenomegaly Extremities: No clubbing/cyanosis. 2+ pitting bilateral edema Behavior: Appropriate, cooperative Results & Data Results & Data Vital Signs (Past 12 Hours) Vital Signs Temp Pulse Pulse Resp BP Pulse Ox O2 Del Method 09/05/23 11:18 36.4 C L 70 16 105/70 97 Room Air 09/05/23 09:30 109/65 09/05/23 07:49 Room Air 09/05/23 07:46 36.3 C L 60 18 91/62 L 96 Room Air 09/05/23 07:30 55 L 09/05/23 03:10 36.2 C L 61 18 99/65 L 97 Room Air Laboratory Results Abnormal lab results 09/04/23 09/04/23 09/05/23 Range/Units 17:10 20:09 06:13 WBC 2.92 L (4.8-10.8) K/ul RBC 3.53 L (4.70-6.10) M/uL Hgb 10.4 L (14.0-18.0) g/dl Hct 31.6 L (42.0-52.0) % RDW Std Deviation 54.8 H (36.4-46.3) fL RDW Coeff of Candido 16.8 H (11.5-14.5) % Plt Count 106 L (130-400) K/uL MPV 12.8 H (9.4-12.4) fL Lymph # (Auto) 0.73 L (1.20-3.40) K/uL PT 12.7 H (9.0-12.0) Seconds INR 1.2 H (0.9-1.1) BUN 45 H (6-23) mg/dl BUN/Creatinine Ratio 32.8 H (10-20) POC Glucose 149 H 125 H (70-99) mg/dl Total Bilirubin 1.6 H (0.2-1.0) mg/dl Globulin 2.4 L (2.5-4.0) gm/dl 09/05/23 09/05/23 Range/Units 08:28 12:19 WBC (4.8-10.8) K/ul RBC (4.70-6.10) M/uL Hgb (14.0-18.0) g/dl Hct (42.0-52.0) % RDW Std Deviation (36.4-46.3) fL RDW Coeff of Candido (11.5-14.5) % Plt Count (130-400) K/uL MPV (9.4-12.4) fL Lymph # (Auto) (1.20-3.40) K/uL PT (9.0-12.0) Seconds INR (0.9-1.1) BUN (6-23) mg/dl BUN/Creatinine Ratio (10-20) POC Glucose 131 H 198 H (70-99) mg/dl Total Bilirubin (0.2-1.0) mg/dl Globulin (2.5-4.0) gm/dl PG Care Time/CCT Total # of Minutes Spent Total Time Spent with Patient: Total time spent is greater than 50% in coordination of care (as documented) at patient's floor/unit and/or counseling patient: Coding Level of Care Code 61248 SUB INP/OBS CARE 2/35MIN Diagnoses HFrEF (heart failure with reduced ejection fraction) I50.20 TAI (dyspnea on exertion) R06.09 MAIDA (acute kidney injury) N17.9 Volume overload E87.70 Thrombocytopenia D69.6 Hyponatremia E87.1 Elevated troponin R79.89 Infection due to human metapneumovirus (hMPV) B34.8 Type 2 diabetes mellitus with chronic kidney disease, without long-term current use of insulin, unspecified CKD stage E11.22 Diabetes mellitus senior care insulin use: without terminal system operator use Diabetes mellitus complication status: with kidney complications Diabetes mellitus complication detail: with chronic kidney disease Chronic kidney disease stage: unspecified stage Elevated bilirubin R17 Pancytopenia D61.818 (9) Diabetes mellitus, type 2 Diabetes mellitus terminal system operator insulin use: without senior care use Diabetes mellitus complication status: with kidney complications Diabetes mellitus complication detail: with chronic kidney disease Chronic kidney disease stage: unspecified stage Qualified Code(s): E11.22 - Type 2 diabetes mellitus with diabetic chronic kidney disease
[2023-09-05] MEDS: ATORVASTATIN 10 MG TAB PO SCH (20:04)
[2023-09-06] MEDS: carvediloL 25 MG TAB PO SCH ×2 (08:29→21:07)
[2023-09-06] MEDS: allopurinoL 100 MG TAB PO SCH ×2 (08:30→21:06)
[2023-09-06] MEDS: ASCORBIC ACID 500 MG TAB PO SCH (08:31)
[2023-09-06] MEDS: ZINC SULFATE 220 MG CAPSULE PO SCH (08:31)
[2023-09-06] MEDS: gemfibroziL 600 MG TAB PO SCH ×2 (08:32→18:23)
[2023-09-06] MEDS: TOCOPHERYL, DL-ALPHA 100 UNITS 67 MG CAP PO SCH (08:32)
[2023-09-06] MEDS: INSULIN ASPART PER UNIT CHARGE SC SCH ×4 (08:34→22:27)
[2023-09-06 08:38] LABS: Hemoglobin 11.8 g/dl (14.0-18.0); Mean Corpuscular Hemoglobin 29.9 pg (25.0-34.0); Mean Corpuscular Hgb Conc 33.7 g/dL (32.0-36.0); Mean Corpuscular Volume 88.6 fL (80.0-100.0); Mean Platelet Volume 11.9 fL (9.4-12.4); Platelet Count 153 K/uL (130-400); RDW Standard Deviation 54.5 fL (36.4-46.3); Red Blood Count 3.95 M/uL (4.70-6.10); White Blood Count 5.99 K/ul (4.8-10.8)
[2023-09-06] MEDS ORDERED: FUROSEMIDE 40 MG/4 ML VIAL IV SCH (09:00)
[2023-09-06 09:02] LABS: BUN Creatinine Ratio 37.5 (10-20); Calcium 9.8 mg/dl (8.6-10.3); Creatinine Clr Calc Pharmacy 48.4 ml/min; Est GFR (African American) 57.8 ml/min; Est GFR (Non-African American) 49.8 ml/min; Potassium 4.5 mmol/L (3.5-5.1)
[2023-09-06] MEDS: POTASSIUM CHLORIDE CRTAB 20 MEQ TABCR PO SCH (09:22)
[2023-09-06] MEDS: ASPIRIN 81 MG ECTAB PO SCH (13:12)
--- NOTE | 2023-09-06 14:06 | Hospitalist Progress Note ---
Date of Service September 06, 2023 Assessment & Plan (1) HFrEF (heart failure with reduced ejection fraction): Plan: - Patient presents with acute on chronic systolic congestive heart failure He is experienced progressive dyspnea on exertion, orthopnea, increased cough, weight gain over the past few weeks Echocardiogram shows EF that is severely low at 15 to 20%, same as December 2022 He has been treated with 40 mg IV Lasix twice daily for the last few days Will start him on 80 mg p.o. Lasix today as he normally takes 60 mg at home. He is breathing much better but still has significant leg swelling all the way up to his thighs. Cardiology on board This episode of acute exacerbation is most likely related to dietary noncompliance versus viral illness Sodium restriction and fluid restriction (2) TAI (dyspnea on exertion): Plan: See above (3) MAIDA (acute kidney injury): Plan: -Patient's cr is 1.49 on admission, baseline is near 1.0 -Suspect this to be more associated with his congestive CHF and possible cardio- renal syndrome Creatinine came down. 1.36 today. Switch from IV to p.o. Lasix today. -Patient is still volume overloaded on exam, has been taking most other medications as prescribed -Hope to resume enalapril soon -Monitor renal function moving forward with continued diuresis (4) Volume overload: Plan: -Suspect this to mainly to be due to his known, severe, HFrEF and cardiomyopathy -Switch from IV to p.o. Lasix today -Monitor for improvement with continued diuresis -Cardiology on board (5) Thrombocytopenia: Plan: -Platelets noted to be low -He does appear to have thrombocytopenia in the past, but platelets have never fallen below 124 previously -Could be due to acute viral illness (6) Hyponatremia: Plan: -Resolved with diuresis His sodium went down to 131 today again. Monitor (7) Elevated troponin: Plan: -Initial high sen trop elevated at 24 --> 24 on 2 hour repeat -Patient is without chest pain and acute ST segment or T-wave changes on ECG -Demand ischemia from volume overload -Continue to monitor on tele (8) Infection due to human metapneumovirus (hMPV): Plan: -Supportive treatment (9) Diabetes mellitus, type 2: Plan: -Has been controlling with diet and exercise -Glucose elevated at 139 today -Last Hgb A1c in May was 5.9 -Monitor BSG ACHS , goal is 110-140 -Start CF 50 ACHS for now -HH/DMII diet -Adjust regimen as needed (10) Elevated bilirubin: Plan: -Elevated -Has had a long hx of total bili in this range -Does have a known hx of Gilbert's syndrome -All other LFT's stable, no abd pain or jaundice (11) Pancytopenia: Plan: Most likely secondary to viral illness with human metapneumovirus Plan Likely discharge tomorrow on oral Lasix Admission and Anticipated Discharge Date Admission Date: September 02, 2023 Subjective Patient says that he is feeling well from a breathing standpoint. But he still has significant leg swelling. He normally takes 60 mg of Lasix by mouth daily. Review of Systems Review of Systems: All systems reviewed & are unremarkable except as noted in Subjective Physical Exam Physical Exam: General: Awake, conversant Heart: S1, S2/regular rate and rhythm, no murmur rubs or gallops Lungs: Clear to auscultation bilaterally.. Normal effort Abdomen: Soft/nontender/nondistended. No hepatosplenomegaly Extremities: No clubbing/cyanosis. 2+ pitting bilateral edema Behavior: Appropriate, cooperative Results & Data Results & Data Vital Signs (Past 12 Hours) Vital Signs Temp Pulse Pulse Resp BP BP Pulse Ox 09/06/23 11:31 36.4 C L 72 18 113/78 95 09/06/23 08:25 36.4 C L 70 20 106/77 98 09/06/23 08:10 09/06/23 07:06 66 09/06/23 03:07 36.2 C L 62 18 97/70 L 96 O2 Del Method 09/06/23 11:31 Room Air 09/06/23 08:25 Room Air 09/06/23 08:10 Room Air 09/06/23 07:06 09/06/23 03:07 Room Air Laboratory Results Abnormal lab results 09/05/23 09/05/23 09/06/23 Range/Units 17:44 19:57 03:11 RBC (4.70-6.10) M/uL Hgb (14.0-18.0) g/dl Hct (42.0-52.0) % RDW Std Deviation (36.4-46.3) fL RDW Coeff of Candido (11.5-14.5) % Sodium (136-145) mmol/L Chloride (98-107) mmol/L BUN (6-23) mg/dl BUN/Creatinine Ratio (10-20) Glucose (70-99(Fasting)) mg/dl POC Glucose 139 H 140 H 165 H (70-99) mg/dl 09/06/23 09/06/23 09/06/23 Range/Units 08:19 08:25 10:58 RBC 3.95 L (4.70-6.10) M/uL Hgb 11.8 L (14.0-18.0) g/dl Hct 35.0 L (42.0-52.0) % RDW Std Deviation 54.5 H (36.4-46.3) fL RDW Coeff of Candido 17.0 H (11.5-14.5) % Sodium 131 L (136-145) mmol/L Chloride 97 L (98-107) mmol/L BUN 51 H (6-23) mg/dl BUN/Creatinine Ratio 37.5 H (10-20) Glucose 154 H (70-99(Fasting)) mg/dl POC Glucose 172 H 194 H (70-99) mg/dl 09/06/23 Range/Units 12:35 RBC (4.70-6.10) M/uL Hgb (14.0-18.0) g/dl Hct (42.0-52.0) % RDW Std Deviation (36.4-46.3) fL RDW Coeff of Candido (11.5-14.5) % Sodium (136-145) mmol/L Chloride (98-107) mmol/L BUN (6-23) mg/dl BUN/Creatinine Ratio (10-20) Glucose (70-99(Fasting)) mg/dl POC Glucose 203 H (70-99) mg/dl PG Care Time/CCT Total # of Minutes Spent Total Time Spent with Patient: Total time spent is greater than 50% in coordination of care (as documented) at patient's floor/unit and/or counseling patient: Coding Level of Care Code 50065 SUB INP/OBS CARE 2/35MIN Diagnoses HFrEF (heart failure with reduced ejection fraction) I50.20 TAI (dyspnea on exertion) R06.09 MAIDA (acute kidney injury) N17.9 Volume overload E87.70 Thrombocytopenia D69.6 Hyponatremia E87.1 Elevated troponin R79.89 Infection due to human metapneumovirus (hMPV) B34.8 Type 2 diabetes mellitus with chronic kidney disease, without long-term current use of insulin, unspecified CKD stage E11.22 Diabetes mellitus long-term insulin use: without long-term use Diabetes mellitus complication status: with kidney complications Diabetes mellitus complication detail: with chronic kidney disease Chronic kidney disease stage: unspecified stage Elevated bilirubin R17 Pancytopenia D61.818 (9) Diabetes mellitus, type 2 Diabetes mellitus ferry terminal agent insulin use: without ferry terminal agent use Diabetes mellitus complication status: with kidney complications Diabetes mellitus complication detail: with chronic kidney disease Chronic kidney disease stage: unspecified stage Qualified Code(s): E11.22 - Type 2 diabetes mellitus with diabetic chronic kidney disease
[2023-09-06] MEDS: FUROSEMIDE 80 MG TAB PO SCH (15:21)
[2023-09-06] MEDS: ATORVASTATIN 10 MG TAB PO SCH (21:06)
[2023-09-07] MEDS: gemfibroziL 600 MG TAB PO SCH (07:37)
[2023-09-07] MEDS: INSULIN ASPART PER UNIT CHARGE SC SCH ×2 (07:38→13:07)
[2023-09-07] MEDS: FUROSEMIDE 80 MG TAB PO SCH (07:51)
[2023-09-07] MEDS: ASCORBIC ACID 500 MG TAB PO SCH (07:51)
[2023-09-07] MEDS: ZINC SULFATE 220 MG CAPSULE PO SCH (07:52)
[2023-09-07] MEDS: allopurinoL 100 MG TAB PO SCH (07:52)
[2023-09-07] MEDS: carvediloL 25 MG TAB PO SCH (07:54)
[2023-09-07] MEDS: TOCOPHERYL, DL-ALPHA 100 UNITS 67 MG CAP PO SCH (07:54)
[2023-09-07 08:05] LABS: Hematocrit (blood only) 33.1 % (42.0-52.0); Hemoglobin 10.9 g/dl (14.0-18.0); Mean Corpuscular Hemoglobin 29.9 pg (25.0-34.0); Mean Corpuscular Hgb Conc 32.9 g/dL (32.0-36.0); Mean Corpuscular Volume 90.7 fL (80.0-100.0); Mean Platelet Volume 12.7 fL (9.4-12.4); Platelet Count 102 K/uL (130-400); RDW Coefficient of Variation 16.7 % (11.5-14.5); RDW Standard Deviation 55.2 fL (36.4-46.3); Red Blood Count 3.65 M/uL (4.70-6.10); White Blood Count 4.82 K/ul (4.8-10.8)
[2023-09-07 08:19] LABS: BUN Creatinine Ratio 34.1 (10-20); Calcium 9.4 mg/dl (8.6-10.3); Creatinine Clr Calc Pharmacy 40.2 ml/min; Est GFR (African American) 46.1 ml/min; Est GFR (Non-African American) 39.7 ml/min; Potassium 4.2 mmol/L (3.5-5.1)
[2023-09-07] MEDS: POTASSIUM CHLORIDE CRTAB 20 MEQ TABCR PO SCH (08:50)
[2023-09-07] MEDS: ASPIRIN 81 MG ECTAB PO SCH (13:49)
--- NOTE | 2023-09-07 15:04 | Discharge Summary ---
Date of Service September 07, 2023 Admission HPI Per Admitting Provider Jonah JordynMari Sandy is a 78 year old male with a PMH significant for hypertension, DMII, hypercholesterolemia, systolic congestive heart failure, dilated cardiomyopathy (LVEF 25%, <20% December 2022), Gilbert's disease, Gout, and CKD who presented to the [facility] ED on 09/02/23 with a chief complaint of TAI. He remained stable in the ED. Labs were significant a thrombocytopenia of 89, lymphocyte count of 0.42, INR of 1.2, Cr of 1.49 (baseline is near 1.0), BUN of 55, sodium of 132, total bili of 2.1 with other LFT's WNL, initial high sen trop of 24, BNP of 4662, and full respiratory biofire positive for human metapneu movirus. Chest xray was read as "No acute chest disease.". Prior to admission the patient was given 40 mg IV lasix. At the time of the exam the patient was sitting in bed in no acute distress. He states that since Late July he has been gaining weight and has noticed increased BL LE swelling. In addition to these symptoms the patient states that he has intermittent episodes where he becomes SOB and feels as though he is having a panic attack. He states the majority of his TAI occurs while being active. When asked if he experiences orthopnea, the patient's response sounds similar. He states that he follows with Dr. Krishnamurthy and is supposed to take additional doses of his lasix after gaining 2lbs over his dry weight. He states that he did not do this recently as he thought he could improve him symptoms with lifestyle modifications. He has been controlling his DMII with diet and exercise as he previously lost 80 lbs. He has been experiencing a non-productive cough over the past 2-3 weeks but this has been worse over the past week. He denies recent fever, chills, chest pain, hemoptysis, abd pain, nausea, vomiting, diarrhea, dysuria, hematuria, melena, and recent trauma. He wishes to be a full code. Principal Diagnosis Acute on chronic congestive heart failure Discharge Exam The patient is awake, alert and oriented 3, well developed and well nourished, normocephalic and atraumatic, lying in bed and in no acute distress. HEENT--PERRL, EOMI, mucous membranes and oropharynx mildly dry Neck--supple. No JVD. No bruits. Thyroid normal, trachea midline, no adenopathy. Heart--normal S1 and S2. No murmurs, rubs or gallops. Lungs--clear bilaterally, no respiratory distress, no accessory muscle use. Abdomen--normal bowel sounds and soft. Mild epigastric and left sided abdominal pain Extremities--bilateral leg edema much improved Dermatologic--signs of chronic venous stasis changes Neurologic--cranial nerves II through XII grossly intact. Rheumatologic--normal range of motion. Psychiatric--normal affect. Discharge Data Allergies Allergy/AdvReac Type Severity Reaction Status Date / Time No Known Drug Allergies Allergy Unknown Verified 09/02/23 19:53 Consultations 09/02/23 19:19 ED Decision to Admit Stat 09/02/23 20:26 Consult Cardiology Routine Ordered Studies 09/02/23 20:25 US Renal Bladder [US renal/blad retro comp] Urgent US venous doppler LE BI Urgent 09/02/23 20:39 US RUQ [US liver] Urgent Hospital Course (1) HFrEF (heart failure with reduced ejection fraction): - Patient presents with acute on chronic systolic congestive heart failure He is experienced progressive dyspnea on exertion, orthopnea, increased cough, weight gain over the past few weeks Echocardiogram shows EF that is severely low at 15 to 20%, same as December 2022 He has been treated with 40 mg IV Lasix twice daily for the last few days Will start him on 80 mg p.o. Lasix today as he normally takes 60 mg at home. He is breathing much better but still has significant leg swelling all the way up to his thighs. Cardiology on board This episode of acute exacerbation is most likely related to dietary noncompliance versus viral illness Sodium restriction and fluid restriction -Much improved clinically, patient breathing well (2) TAI (dyspnea on exertion): See above (3) MAIDA (acute kidney injury): -Patient's cr is 1.49 on admission, baseline is near 1.0 -Suspect this to be more associated with his congestive CHF and possible cardio- renal syndrome Creatinine came down. 1.36 today. Switch from IV to p.o. Lasix today. -Patient is still volume overloaded on exam, has been taking most other medications as prescribed -Hope to resume enalapril soon -Monitor renal function moving forward with continued diuresis (4) Volume overload: -Suspect this to mainly to be due to his known, severe, HFrEF and cardiomyopathy -Switch from IV to p.o. Lasix today -Monitor for improvement with continued diuresis -Cardiology on board (5) Thrombocytopenia: -Platelets noted to be low -He does appear to have thrombocytopenia in the past, but platelets have never fallen below 124 previously -Could be due to acute viral illness (6) Hyponatremia: -Resolved with diuresis (7) Elevated troponin: -Initial high sen trop elevated at 24 --> 24 on 2 hour repeat -Patient is without chest pain and acute ST segment or T-wave changes on ECG -Demand ischemia from volume overload -Continue to monitor on tele (8) Infection due to human metapneumovirus (hMPV): -Supportive treatment (9) Diabetes mellitus, type 2: -Has been controlling with diet and exercise -Glucose elevated at 139 today -Last Hgb A1c in May was 5.9 -Monitor BSG ACHS , goal is 110-140 -Start CF 50 ACHS for now -HH/DMII diet -Adjust regimen as needed (10) Elevated bilirubin: -Elevated -Has had a long hx of total bili in this range -Does have a known hx of Gilbert's syndrome -All other LFT's stable, no abd pain or jaundice (11) Pancytopenia: Most likely secondary to viral illness with human metapneumovirus Plan Discharge home, patient says he has a PCP appointment tomorrow and also cardiology appointment on Thursday Total Time Total Time Spent Total Time Spent (In Minutes): 35 Discharge Plan Discharge Items Patient Disposition: Home - Self-Care Reason For Visit: TAI, THROMBOCYTOPENIA, MAIDA Discharge Diagnosis: acute on chronic CHF Activity: Resume your previous activity Non-emergency contact: Primary Care Provider and [employer]an [employer] Specialist Call non-emergency contact if: you have any medication questions Follow-up/Referrals: Radha Banks MD [Primary Care Provider] - 09/07/23 1:00 pm Diet: Heart Healthy Addtl Attending Provider Instructions: please follow up with your PCP tomorrow and also your manager product marketing on Thursday as planned Pending Studies at Discharge: No Stand-Alone Forms: My [email or web address], Smoking Cessation Medications and DC Order Prescriptions: New Jardiance 10 mg Tablet 10 mg PO DAILY 30 Days Qty: 30 0RF Continued carvedilol 25 mg tablet 25 mg PO BID Qty: 180 3RF enalapril maleate 10 mg tablet 10 mg PO DAILY Qty: 90 3RF potassium chloride 10 mEq tablet extended release 20 meq PO DAILY Qty: 180 3RF baclofen 10 mg tablet 10 mg PO BID PRN (Reason: muscle spasms) cholecalciferol (vitamin D3) 125 mcg (5,000 unit) capsule 5,000 unit PO DAILY omega-3 fatty acids [Fish Oil Concentrate] 1,000 mg capsule 1,000 mg PO DAILY allopurinol 100 mg tablet 50 mg PO BID Rx Instructions: Take 1/2 a tablet in the morning and 1/2 a tablet at night. multivitamin [Daily Multi-Vitamin] tablet 1 tab PO 1200 lutein-zeaxanthin 1 cap PO DAILY Rx Instructions: 1 25 mg-5 mg tab daily ascorbic acid (vitamin C) 100 mg tablet,chewable 100 mg PO DAILY copper gluconate 2 mg tablet 2 mg PO DAILY zinc acetate 50 mg (zinc) capsule 50 mg PO DAILY Vitamin E 80 mg PO DAILY aspirin [Irineo Low Dose Aspirin] 81 mg Tablet,Delayed Release (Dr/Ec) 81 mg PO 1200 furosemide 40 mg tablet 60 mg PO QPM atorvastatin 10 mg tablet 10 mg PO QPM gemfibrozil 600 mg tablet 300 mg PO BID Rx Instructions: 300 mg PO BID 30 MINUTES BEFORE MEALS Discharge Orders: Discharge Order (Routine); Ordered 09/07/23 Ordered By: Su Oquendo/Other Patient Handouts: A1C Admission Data Admit Date/Time: 09/02/23 19:51 Attending Provider: Su Langley Admit Provider: Juan Jose Mccann Primary Care Provider: Radha Banks Other Providers: Juan Jose Mccann; Jonah Asher; [place] Other Interventions: Discharge Summary Assessment (RN) Last Done: 09/07/23 14:14 Coding Level of Care Code 05142 INP/OBS DISCH >30 MIN Diagnoses HFrEF (heart failure with reduced ejection fraction) I50.20 TAI (dyspnea on exertion) R06.09 MAIDA (acute kidney injury) N17.9 Volume overload E87.70 Thrombocytopenia D69.6 Hyponatremia E87.1 Elevated troponin R79.89 Infection due to human metapneumovirus (hMPV) B34.8 Type 2 diabetes mellitus with chronic kidney disease, without long-term current use of insulin, unspecified CKD stage E11.22 Diabetes mellitus terminal operations manager insulin use: without terminal operations manager use Diabetes mellitus complication status: with kidney complications Diabetes mellitus complication detail: with chronic kidney disease Chronic kidney disease stage: unspecified stage Elevated bilirubin R17 Pancytopenia D61.818 Time Spent (min) 35
[2023-09-07] MEDS ORDERED: gemfibroziL 600 MG TAB PO SCH (16:30)
[2023-09-08] MEDS ORDERED: EMPAGLIFLOZIN 10 MG TAB PO SCH (09:00)
== END 2023-09-07 15:21 | disposition home health service (06) | DRG 291 ==
LOC: ED 14:04 → EDINP 19:51 → SUATTDRO 19:51 → 2N 21:48

== ENCOUNTER 2023-09-08 07:35 | Inpatient (IN) ==
--- NOTE | 2023-09-08 08:08 | Emergency Department Note ---
Impression & Plan MAIDA (acute kidney injury), Elevated bilirubin, Acute dehydration, Transaminitis ED Provider Note NAME: ROGER CHAUHAN AGE: 78 SEX: M : 1945 ARRIVES VIA: Ambulance INFORMANT: Patient ED PROVIDER(S): Ever Fernandez DO CHIEF COMPLAINT: Weakness HPI: Patient is a 78-year-old male with a past medical history of cardiomyopathy, hyponatremia, pancytopenia, heart failure with reduced ejection fracture, MAIDA who presents to the ER for weakness. He was diagnosed with human metapneumovirus and was just discharged back to his house yesterday. He has been unable to get up and walk around as he is too weak. He lowered himself to the ground. He denies any new headache or change in vision. No chest pain or shortness of breath. ADDITIONAL HISTORY OBTAINED: Per HPI Chronic Medical/Social Conditions Affecting Care: Per HPI PAST MEDICAL HISTORY:See Below PAST SURGICAL HISTORY:See Below FAMILY HISTORY:See Below SOCIAL HISTORY:See Below HOME MEDICATIONS:See Below ALLERGIES:See Below VITALS:See Below PHYSICAL EXAMINATION: GENERAL: Sitting up in bed, alert, generally ill-appearing, disheveled, no acute distress EYE EXAM: normal conjunctiva. OROPHARYNX: no exudate, no erythema, lips, buccal mucosa, and tongue normal and mucous membranes are moist NECK: supple, no nuchal rigidity, no adenopathy, non-tender LUNGS: Clear to auscultation. Normal chest wall mechanics HEART: no murmurs, S1 normal and S2 normal ABDOMEN: abdomen soft, non-tender, normo-active bowel sounds, no masses, no rebound or guarding. UPPER EXTREMITIES: upper extremities are grossly normal. LOWER EXTREMITIES: No pitting edema. NEURO EXAM: Normal sensorium, cranial nerves II-XII grossly intact, normal speech, no gross weakness of arms, no gross weakness of legs. MEDICAL DECISION MAKING: Patient is a 78-year-old male who was just discharged from the hospital who returns for weakness. He notes that since getting home has been unable to get up and get around. He notes he was unable to really get around well in the hospital as well. Denies any belly pain or any other new complaints. IV was established blood work is obtained. Labs show no significant leukocytosis or anemia. INR unremarkable. BMP with a subtle metabolic acidosis which is slightly gapped. Clearly has MAIDA with creatinine up in the twos. Transaminitis as well as an elevated bilirubin of 4.2. Trope was mildly elevated. Lipase was unremarkable. Patient was given IV fluids. Blood pressures rebounded in the low 100s. Patient was given IV antibiotics. I discussed the case with general surgery following ultrasound which showed no biliary dilation and fairly unchanged. They recommended admission as well as a HIDA scan. Discussed case with Dr. Verdin for further evaluation management treatment. Consults/Care Managements Discussions: Per [facility] Triage Nursing notes reviewed. Limited review of prior medical records performed Vital Signs: reviewed and remarkable for no significant abnormalities Differential diagnosis: Differential diagnoses includes but is not limited to gastritis, peptic ulcer disease, GERD, gallbladder disease, pancreatitis, small bowel obstruction, appendicitis, diverticulitis, hernia, urinary tract infection, torsion, /ectopic (if female), perforation, trauma, infectious. ER treatment provided: See below Diagnostics interpreted by me include EKG and cardiac monitoring as listed below: -Cardiac Monitoring: An order was placed for continuous cardiac monitoring. The monitor shows a rate of 70 with sinus rhythm. -ECG: none -Laboratory studies:Interpreted by me as stated above in MDM and shown below. Imaging studies: Xrays: As interpreted by me:none CTs show: none Ultrasound the gallbladder per my preliminary interpretation shows fair amount of gallbladder wall edema Ultrasound gallbladder per radiology as described above Procedures:none Critical Care: None Past Med/Surg History Medical History Abnormal CBC Gout Gilbert disease Fatty liver Hypertension Hyperlipidemia Arrhythmia "irregular" - Follows with Dr. Krishnamurthy Spindle cell carcinoma Basal cell carcinoma Diabetes mellitus, type 2 niddm Congestive heart failure Surgical History S/P wisdom tooth extraction History of liver biopsy History of colonoscopy History of cardiac cath 2004. no stents Status post Mohs surgery x6 Family History Father Hearing loss Hypertension Mother Brain tumor Other No family history of adverse response to anesthesia No family history of bleeding disorder Denies family history of Ovarian cancer Prostate cancer Myocardial infarction Breast cancer Colorectal cancer Social History Smoking Status: Never smoker Second Hand Exposure: No; Do You Dip or Chew Tobacco: No; Hx Alcohol Use: No Hx Substance Use: No Preferred Language: Salvadorean Communication Ability: Effective Visual Impairment: No Limitations Hearing Ability: Normal Tailing Hand Required: No Beliefs That Will Affect Care: None marital status: Current Living Situation: Alone current occupational status: retired How many Children do You have: 1 Feels Safe at Home: Yes Childhood Exposure to Second-Hand Smoke: No Diet: Weight Watchers caffeine: Yes (tea) during the past year weight has: remained stable Dental Care, Regularly: Yes Physical Activity Frequency: Daily Physical Activity Frequency Comment: Does Fit for Play. Seatbelt Use: always Sunscreen Use: No Assistive Devices: Cane, Glasses, Scooter/Electric Scooter and Walker Allergies Allergies Allergy/AdvReac Type Severity Reaction Status Date / Time No Known Drug Allergies Allergy Unknown Verified 09/02/23 19:53 Home Meds Home Medications Medication Instructions Recorded Confirmed multivitamin (Daily Multi-Vitamin 0 tab PO DAILY 03/02/19 09/08/23 tablet) aspirin 81 mg tablet,delayed 0 mg PO 1200 07/12/19 09/08/23 release (Irineo Low Dose Aspirin) cholecalciferol (vitamin D3) 125 0 unit PO DAILY 12/12/20 09/08/23 mcg (5,000 unit) capsule omega-3 fatty acids 1,000 mg 0 mg PO DAILY 12/12/20 09/08/23 capsule (Fish Oil Concentrate) ascorbic acid (vitamin C) 100 mg 0 mg PO DAILY 03/10/23 09/08/23 chewable tablet copper gluconate 2 mg tablet 0 mg PO DAILY 03/10/23 09/08/23 zinc acetate 50 mg (zinc) capsule 0 mg PO DAILY 03/10/23 09/08/23 allopurinol 100 mg tablet 0 mg PO BID 06/09/23 09/08/23 atorvastatin 10 mg tablet 10 mg PO QPM 09/02/23 09/08/23 furosemide 40 mg tablet 60 mg PO QPM 09/02/23 09/08/23 gemfibrozil 600 mg tablet 0 mg PO BID 09/02/23 09/08/23 empagliflozin 10 mg tablet 0 mg PO DAILY 09/08/23 09/08/23 (Jardiance) lutein 25 mg-zeaxanthin 5 mg 0 cap PO DAILY 09/08/23 09/08/23 capsule vitamin E 100 unit tablet 0 unit PO DAILY 09/08/23 09/08/23 Previous Rx's Medication Instructions Recorded carvedilol 25 mg tablet 25 mg PO BID #180 tabs 08/20/23 enalapril maleate 10 mg tablet 10 mg PO DAILY #90 tabs 08/20/23 potassium chloride 10 mEq 20 meq (2 x 10 mEq) PO DAILY #180 08/20/23 tablet,extended release tabs Results & Data (ED) Vital Signs Vital Signs - 24 hr 09/08/23 07:41 09/08/23 07:42 09/08/23 07:55 Temperature 36.7 C Temperature Source Oral Pulse Rate 68 69 69 Pulse Rate [Apical] Pulse Rate from SpO2 Sensor 69 Pulse Rhythm Regular Pulse Rhythm [Apical] Pulse Strength Normal Pulse Strength [Apical] Respiratory Rate 20 18 Respiratory Effort / Characteristics Non-Labored Respiratory Depth Normal Respiratory Pattern Regular Blood Pressure 101/77 Blood Pressure [Right Arm] Blood Pressure Mean 85 Blood Pressure Mean [Right Arm] Blood Pressure Position Lying Pulse Oximetry 100 Oxygen Delivery Method Room Air Sepsis Recent Fever Within 48 Hours No Sepsis New/Unexplained Change in Mental Status No Sepsis Action Taken by Nursing No Action Required 09/08/23 08:00 09/08/23 08:06 09/08/23 08:06 Temperature 36.7 C Temperature Source Oral Pulse Rate 67 Pulse Rate [Apical] 69 Pulse Rate from SpO2 Sensor 69 Pulse Rhythm Pulse Rhythm [Apical] Regular Pulse Strength Pulse Strength [Apical] Normal Respiratory Rate 20 18 Respiratory Effort / Characteristics Non-Labored Respiratory Depth Normal Respiratory Pattern Regular Blood Pressure Blood Pressure [Right Arm] 101/77 Blood Pressure Mean Blood Pressure Mean [Right Arm] 85 Blood Pressure Position Pulse Oximetry 100 99 Oxygen Delivery Method Room Air Room Air Sepsis Recent Fever Within 48 Hours Sepsis New/Unexplained Change in Mental Status Sepsis Action Taken by Nursing 09/08/23 08:06 09/08/23 08:30 09/08/23 08:31 Temperature Temperature Source Pulse Rate 69 68 68 Pulse Rate [Apical] Pulse Rate from SpO2 Sensor 67 67 Pulse Rhythm Regular Pulse Rhythm [Apical] Pulse Strength Pulse Strength [Apical] Respiratory Rate 18 24 18 Respiratory Effort / Characteristics Respiratory Depth Respiratory Pattern Blood Pressure Blood Pressure [Right Arm] Blood Pressure Mean Blood Pressure Mean [Right Arm] Blood Pressure Position Pulse Oximetry 99 100 99 Oxygen Delivery Method Room Air Sepsis Recent Fever Within 48 Hours Sepsis New/Unexplained Change in Mental Status Sepsis Action Taken by Nursing 09/08/23 08:31 09/08/23 09:00 09/08/23 09:00 Temperature Temperature Source Pulse Rate 67 Pulse Rate [Apical] Pulse Rate from SpO2 Sensor 68 Pulse Rhythm Pulse Rhythm [Apical] Pulse Strength Pulse Strength [Apical] Respiratory Rate 22 Respiratory Effort / Characteristics Respiratory Depth Respiratory Pattern Blood Pressure 106/74 101/72 Blood Pressure [Right Arm] Blood Pressure Mean 80 84 Blood Pressure Mean [Right Arm] Blood Pressure Position Pulse Oximetry 99 Oxygen Delivery Method Sepsis Recent Fever Within 48 Hours Sepsis New/Unexplained Change in Mental Status Sepsis Action Taken by Nursing 09/08/23 09:47 09/08/23 09:48 09/08/23 09:48 Temperature Temperature Source Pulse Rate 67 71 Pulse Rate [Apical] Pulse Rate from SpO2 Sensor 66 69 Pulse Rhythm Pulse Rhythm [Apical] Pulse Strength Pulse Strength [Apical] Respiratory Rate 12 21 Respiratory Effort / Characteristics Respiratory Depth Respiratory Pattern Blood Pressure 101/77 Blood Pressure [Right Arm] Blood Pressure Mean 82 Blood Pressure Mean [Right Arm] Blood Pressure Position Pulse Oximetry 100 100 Oxygen Delivery Method Sepsis Recent Fever Within 48 Hours Sepsis New/Unexplained Change in Mental Status Sepsis Action Taken by Nursing 09/08/23 10:00 09/08/23 10:00 09/08/23 10:30 Temperature Temperature Source Pulse Rate 64 69 Pulse Rate [Apical] Pulse Rate from SpO2 Sensor 65 69 Pulse Rhythm Pulse Rhythm [Apical] Pulse Strength Pulse Strength [Apical] Respiratory Rate 18 20 Respiratory Effort / Characteristics Respiratory Depth Respiratory Pattern Blood Pressure 104/79 Blood Pressure [Right Arm] Blood Pressure Mean 82 Blood Pressure Mean [Right Arm] Blood Pressure Position Pulse Oximetry 100 98 Oxygen Delivery Method Sepsis Recent Fever Within 48 Hours Sepsis New/Unexplained Change in Mental Status Sepsis Action Taken by Nursing 09/08/23 10:31 09/08/23 10:37 09/08/23 10:37 Temperature Temperature Source Pulse Rate 68 64 Pulse Rate [Apical] Pulse Rate from SpO2 Sensor 68 64 Pulse Rhythm Pulse Rhythm [Apical] Pulse Strength Pulse Strength [Apical] Respiratory Rate 19 22 Respiratory Effort / Characteristics Respiratory Depth Respiratory Pattern Blood Pressure 99/73 L Blood Pressure [Right Arm] Blood Pressure Mean 78 Blood Pressure Mean [Right Arm] Blood Pressure Position Pulse Oximetry 100 100 Oxygen Delivery Method Sepsis Recent Fever Within 48 Hours Sepsis New/Unexplained Change in Mental Status Sepsis Action Taken by Nursing 09/08/23 11:00 09/08/23 11:00 Temperature Temperature Source Pulse Rate 65 Pulse Rate [Apical] Pulse Rate from SpO2 Sensor 65 Pulse Rhythm Pulse Rhythm [Apical] Pulse Strength Pulse Strength [Apical] Respiratory Rate 21 Respiratory Effort / Characteristics Respiratory Depth Respiratory Pattern Blood Pressure 100/74 Blood Pressure [Right Arm] Blood Pressure Mean 78 Blood Pressure Mean [Right Arm] Blood Pressure Position Pulse Oximetry 100 Oxygen Delivery Method Sepsis Recent Fever Within 48 Hours Sepsis New/Unexplained Change in Mental Status Sepsis Action Taken by Nursing Laboratory Data 09/08/23 08:02 09/08/23 11:26 Lab Results 09/08/23 Range/Units 08:02 WBC 9.73 (4.8-10.8) K/ul RBC 4.19 L (4.70-6.10) M/uL Hgb 12.6 L (14.0-18.0) g/dl Hct 38.6 L (42.0-52.0) % MCV 92.1 (80.0-100.0) fL MCH 30.1 (25.0-34.0) pg MCHC 32.6 (32.0-36.0) g/dL RDW Std Deviation 57.2 H (36.4-46.3) fL RDW Coeff of Candido 17.2 H (11.5-14.5) % Plt Count 146 (130-400) K/uL MPV 13.1 H (9.4-12.4) fL Immature Gran % (Auto) 0.7 % Neut % (Auto) 84.3 % Lymph % (Auto) 5.8 % Alfalfa % (Auto) 9.0 % Eos % (Auto) 0.1 % Baso % (Auto) 0.1 % Neut # (Auto) 8.20 H (1.40-6.50) K/uL Lymph # (Auto) 0.56 L (1.20-3.40) K/uL Alfalfa # (Auto) 0.88 H (0.11-0.59) K/uL Eos # (Auto) 0.01 (0.00-0.50) K/uL Baso # (Auto) 0.01 (0.00-0.20) K/uL Immature Gran # (Auto) 0.07 (0.01-0.20) K/uL PT 16.0 H (9.0-12.0) Seconds INR 1.5 H (0.9-1.1) APTT 26 (21-31) Seconds PTT Ratio 0.9 Sodium 129 L (136-145) mmol/L Potassium 5.3 H D (3.5-5.1) mmol/L Chloride 94 L (98-107) mmol/L Carbon Dioxide 20 L (21-32) mmol/L Anion Gap 15 H (3-11) BUN 71 H (6-23) mg/dl Creatinine 2.03 H D (0.6-1.4) mg/dl Est Cr Clr Drug Dosing 36.1 ml/min Est GFR ( Amer) 35.6 ml/min Est GFR (Non-Af Amer) 30.7 ml/min BUN/Creatinine Ratio 35.0 H (10-20) Glucose 223 H (70-99(Fasting)) mg/dl Calcium 9.9 (8.6-10.3) mg/dl Total Bilirubin 4.1 H (0.2-1.0) mg/dl AST 551 H (13-39) U/L ALT 404 H (7-52) U/L Alkaline Phosphatase 95 (34-104) U/L Total Protein 6.9 (6.0-8.3) gm/dl Albumin 4.2 (3.4-5.0) gm/dl Globulin 2.7 (2.5-4.0) gm/dl Albumin/Globulin Ratio 1.6 (0.9-2) Lipase 11 (11-82) U/L Administered Medications Discontinued Medications Sodium Chloride (Nss) 1,000 mls @ 999 mls/hr IV .Q1H1M ONE Stop: 09/08/23 09:58 Last Infusion: 09/08/23 10:29 Dose: Infused Documented By: Admin: 09/08/23 09:16 Dose: 999 mls/hr Documented By: PHYLICIA Pantoprazole Sodium 40 mg/ (Syringe) 10 mls @ 5 mls/min IV NOW STA Stop: 09/08/23 11:06 Last Admin: 09/08/23 12:17 Dose: 5 mls/min Documented By: PHYLICIA Piperacillin Sod/Tazobactam Sod (Zosyn) 4.5 gm in 100 mls @ 200 mls/hr IV NOW ONE Stop: 09/08/23 11:30 Last Admin: 09/08/23 12:18 Dose: 200 mls/hr Documented By: PYHLICIA Imaging Data Radiologist's Impression: Gallbladder Ultrasound 09/08/23 08:58 ABDOMINAL ULTRASOUND, RIGHT UPPER QUADRANT HISTORY: Elevated bilirubin and LFTs.. COMPARISON: Abdominal ultrasound 09/02/2023. FINDINGS: Pancreas: The pancreatic head and tail are obscured by overlying bowel gas. The remaining portions of the pancreas are within normal limits. Liver: No hepatic masses. There is trace perihepatic ascites noted. Gallbladder: Thickened and edematous gallbladder wall again noted measuring up to 6 mm. There are few small stones gallbladder. Evaluation for a sonographic Kate's sign is nondiagnostic due to the patient's onboard pain medication. CBD: 6 mm. Right kidney: No hydronephrosis. IMPRESSION: 1. No significant change in the diffuse gallbladder wall thickening an cholelithiasis. This is nonspecific and could be due to underlying hepatic pathology, a low protein state, or possibly an acute cholecystitis. 2. Trace perihepatic ascites. 3. Normal caliber common bile duct. ACT 112: Negative or not required by law. Electronically signed by: Brian Andrade M.D. 09/08/2023 10:15 AM Chest X-Ray 09/08/23 10:57 XR chest 1V portable HISTORY: Shortness of breath. COMPARISON: Chest 09/02/2023. FINDINGS: Slightly rotated study. No pneumothorax. No pleural effusions. There are low lung volumes. The cardiac silhouette remains moderately enlarged. No evidence for pulmonary edema. Hazy appearance to the periphery the left upper lobe is likely due to the rotated study. Otherwise, no focal lung consolidations to suggest a pneumonia. IMPRESSION: No significant change compared to the prior study. Stable enlargement of the cardiac silhouette. ACT 112: Negative or not required by law. Electronically signed by: Brian Andrade M.D. 09/08/2023 12:30 PM Discharge Plan Visit Data Chief Complaint: Weakness ED Provider: Ever Fernandez Discharge Problem: MAIDA (acute kidney injury), Elevated bilirubin, Acute dehydration, Transaminitis Discharge Instructions Interventions: ED Discharge Assessment Last Done: 09/08/23 13:02
[2023-09-08 08:23] LABS: Basophils # (auto) 0.01 K/uL (0.00-0.20); Basophils % (auto) 0.1 %; Eosinophils # (auto) 0.01 K/uL (0.00-0.50); Eosinophils % (auto) 0.1 %; Hematocrit (blood only) 38.6 % (42.0-52.0); Hemoglobin 12.6 g/dl (14.0-18.0); Immature Granulocytes # (auto) 0.07 K/uL (0.01-0.20); Immature Granulocytes % (auto) 0.7 %; Lymphocytes # (auto) 0.56 K/uL (1.20-3.40); Lymphocytes % (auto) 5.8 %; Mean Corpuscular Hemoglobin 30.1 pg (25.0-34.0); Mean Corpuscular Hgb Conc 32.6 g/dL (32.0-36.0); Mean Corpuscular Volume 92.1 fL (80.0-100.0); Mean Platelet Volume 13.1 fL (9.4-12.4); Monocytes # (auto) 0.88 K/uL (0.11-0.59); Neutrophils % (auto) 84.3 %; Platelet Count 146 K/uL (130-400); RDW Coefficient of Variation 17.2 % (11.5-14.5); RDW Standard Deviation 57.2 fL (36.4-46.3); Red Blood Count 4.19 M/uL (4.70-6.10); White Blood Count 9.73 K/ul (4.8-10.8)
[2023-09-08 08:52] LABS: Albumin Globulin Ratio 1.6 (0.9-2); Albumin Level 4.2 gm/dl (3.4-5.0); Bilirubin,Total 4.1 mg/dl (0.2-1.0); Calcium 9.9 mg/dl (8.6-10.3); Creatinine Clr Calc Pharmacy 36.1 ml/min; Est GFR (African American) 35.6 ml/min; Est GFR (Non-African American) 30.7 ml/min; Globulin 2.7 gm/dl (2.5-4.0); Potassium 5.3 mmol/L (3.5-5.1); Total Protein 6.9 gm/dl (6.0-8.3)
[2023-09-08] MEDS: SODIUM CHLORIDE 0.9% 1,000 ML IV ONE (09:16)
--- NOTE | 2023-09-08 10:17 | Ultrasound Report ---
ABDOMINAL ULTRASOUND, RIGHT UPPER QUADRANT HISTORY: Elevated bilirubin and LFTs.. COMPARISON: Abdominal ultrasound 09/02/2023. FINDINGS: Pancreas: The pancreatic head and tail are obscured by overlying bowel gas. The remaining portions of the pancreas are within normal limits. Liver: No hepatic masses. There is trace perihepatic ascites noted. Gallbladder: Thickened and edematous gallbladder wall again noted measuring up to 6 mm. There are few small stones gallbladder. Evaluation for a sonographic Kate's sign is nondiagnostic due to the pat ient's onboard pain medication. CBD: 6 mm. Right kidney: No hydronephrosis. IMPRESSION: 1. No significant change in the diffuse gallbladder wall thickening an cholelithiasis. This is nonspe cific and could be due to underlying hepatic pathology, a low protein state, or possibly an acute cho lecystitis. 2. Trace perihepatic ascites. 3. Normal caliber common bile duct. ACT 112: Negative or not required by law. Electronically signed by: Brian Andrade M.D. 09/08/2023 10:15 AM
--- NOTE | 2023-09-08 11:26 | History & Physical Report ---
Date of Service September 08, 2023 Assessment & Plan (1) Elevated LFTs: Plan: Concerning for acute cholecystitis with choledocholithiasis although no right upper quadrant pain on exam Alternative explanation would be rhabdomyolysis with his Gilbert's - total CK ordered, troponin negative not suggestive cardiac elevation Occasionally holding doses of carvedilol during previous hospitalization due to hold parameters however the patient also did not take this at home and blood pressure not significantly low to consider a shock liver Hepatitis panel, acetaminophen and alcohol level ordered - these appear much less likely Given concern for acute cholecystitis on ultrasound although not worse than last admission with no elevated white blood count I have no alternative explanation for his elevated LFTs at this time and he is a poor surgical candidate therefore will elect to treat empirically with intravenous antibiotics pending further workup. Blood cultures ordered prior to antibiotics. He does not meet sepsis criteria. Pending results of MRCP and creatinine kinase will consult gastroenterology Surgery consulted by ER (2) HFrEF (heart failure with reduced ejection fraction): Plan: Currently appears intravascularly deplete despite significant pitting edema in his legs. Hold furosemide, enalapril, carvedilol given current blood pressure. May restart carvedilol at a lower dose depending on serial blood pressures tonight. Suspect he was over diuresed last admission and some of his symptoms were likely due to metapneumovirus and possible acute cholecystitis - Over-diuresis evidenced by cardiology consult (suspected the symptoms were more due to metapneumovirus than congestive heart failure), lack of pulmonary edema on admission, initial improvement in sodium but then trended down on September 06, significant increase in Lasix dosing from PRN prior to admission to 40 mg IV BID during admission and 60 mg p.o. daily on discharge. (3) High anion gap metabolic acidosis: Plan: Alcohol level, lactate ordered Suspect uremia contributing Presumably he has a lactic acidosis from volume depletion and will improve with NSS 1L however need to be careful with volume resuscitation given recent admision for heart failure and LVEF 15-20%. (4) MAIDA (acute kidney injury): Plan: He appears intravascularly deplete with Lasix last admission. Last dose of Lasix was 80 mg p.o. yesterday morning. Continue to monitor following 1L NSS (5) Poor balance: Plan: Reports baseline unsteady on his feet - consider rehabilitation on discharge (6) Diabetes mellitus, type 2: Plan: HbA1c 6.0 [09/03/2023] Hold Jardiance due to MAIDA Did not require NovoLog throughout last admission. POC glucose 91-203. No need for BSG ACHS or insulin coverage. (7) Gout: Plan: Continue allopurinol renally dosed No current exacerbation (8) Gilbert disease: (9) Muscular deconditioning: Plan VTE prophylaxis - no VTE prophylaxis was given last admission Diet - NPO Disposition - admit to PCU Admission and Anticipated Discharge Date Admission Date: September 07, 2023 History of Present Illness Chief Complaint: Panic attack Primary Care Provider: Radha Banks MD Jonah Sandy is a 78-year-old male who presents to the ER with generalized weakness. He was recently hospitalized from September 02 to 2023 due to acute heart failure with reduced ejection fraction. On discharge yesterday he went ho me and made it down stairs to his basement where he was able to sit at his desk and have a shower. He did not have anything significant to eat or drink. When he tried to go upstairs he could only go up a few stairs at a time and had to recover on the top of the stairs for 45 minutes with what he describes as a panic attack with associated shortness of breath but no chest pain. He was unable to make it back to his bed and lied does on his kitchen floor all night. He denies falling asleep and thinks he was awake all night. He called EMS this morning who were able to help him get back to his bedroom but they asked him how he expected to continue to get around as he was generally so weak they recommended he come back to the ER which he agreed to. He has not taken any medications since discharge yesterday (had his morning medications in the hospital yesterday) He was recently admitted from September 02 - 2023 due to shortness of breath on exertion. He was diagnosed with metapneumovirus and acute on chronic heart failure with reduced ejection fraction. He was initially diuresed with Lasix 40mg IV BID, switched to 80mg PO daily and placed on Lasix 60mg PO daily on discharge (which he never had time to take). Initially his sodium and Cr responded to diuretics however yesterday his Cr did start to increase and sodium went back down to 131 2 days ago. In the ER labs were concerning for elevated transaminitis. He denies any abdominal pain at any time. LFTs were normal unremarkable during last admission (last took 3 days ago) with mildly raised total bilirubin and known diagnosis of Gilbert's syndrome. Allergies Allergy/AdvReac Type Severity Reaction Status Date / Time No Known Drug Allergies Allergy Unknown Verified 09/02/23 19:53 Home Medications Medication Instructions Recorded Confirmed Type multivitamin (Daily Multi-Vitamin 0 tab PO DAILY 03/02/19 09/08/23 History tablet) aspirin 81 mg tablet,delayed 0 mg PO 1200 07/12/19 09/08/23 History release (Irineo Low Dose Aspirin) cholecalciferol (vitamin D3) 125 0 unit PO DAILY 12/12/20 09/08/23 History mcg (5,000 unit) capsule omega-3 fatty acids 1,000 mg 0 mg PO DAILY 12/12/20 09/08/23 History capsule (Fish Oil Concentrate) ascorbic acid (vitamin C) 100 mg 0 mg PO DAILY 03/10/23 09/08/23 History chewable tablet copper gluconate 2 mg tablet 0 mg PO DAILY 03/10/23 09/08/23 History zinc acetate 50 mg (zinc) capsule 0 mg PO DAILY 03/10/23 09/08/23 History allopurinol 100 mg tablet 0 mg PO BID 06/09/23 09/08/23 History carvedilol 25 mg tablet 25 mg PO BID #180 tabs 08/20/23 09/08/23 Rx enalapril maleate 10 mg tablet 10 mg PO DAILY #90 tabs 08/20/23 09/08/23 Rx potassium chloride 10 mEq 20 meq (2 x 10 mEq) PO DAILY #180 08/20/23 09/08/23 Rx tablet,extended release tabs atorvastatin 10 mg tablet 10 mg PO QPM 09/02/23 09/08/23 History furosemide 40 mg tablet 60 mg PO QPM 09/02/23 09/08/23 History gemfibrozil 600 mg tablet 0 mg PO BID 09/02/23 09/08/23 History empagliflozin 10 mg tablet 0 mg PO DAILY 09/08/23 09/08/23 History (Jardiance) lutein 25 mg-zeaxanthin 5 mg 0 cap PO DAILY 09/08/23 09/08/23 History capsule vitamin E 100 unit tablet 0 unit PO DAILY 09/08/23 09/08/23 History Past Med/Surg History Medical History Abnormal CBC Gout Gilbert disease Fatty liver Hypertension Hyperlipidemia Arrhythmia "irregular" - Follows with Dr. Krishnamurthy Spindle cell carcinoma Basal cell carcinoma Diabetes mellitus, type 2 niddm Congestive heart failure Surgical History S/P wisdom tooth extraction History of liver biopsy History of colonoscopy History of cardiac cath 2004. no stents Status post Mohs surgery x6 Family History Father Hearing loss Hypertension Mother Brain tumor Other No family history of adverse response to anesthesia No family history of bleeding disorder Denies family history of Ovarian cancer Prostate cancer Myocardial infarction Breast cancer Colorectal cancer Social History Smoking Status: Never smoker Second Hand Exposure: No; Do You Dip or Chew Tobacco: No; Hx Alcohol Use: No Hx Substance Use: No Preferred Language: Tuvaluan Communication Ability: Effective Visual Impairment: No Limitations Hearing Ability: Normal Indigo Vat Tender Cloth Required: No Beliefs That Will Affect Care: None marital status: Current Living Situation: Alone current occupational status: retired How many Children do You have: 1 Feels Safe at Home: Yes Childhood Exposure to Second-Hand Smoke: No Diet: Weight Watchers caffeine: Yes (tea) during the past year weight has: remained stable Dental Care, Regularly: Yes Physical Activity Frequency: Daily Physical Activity Frequency Comment: Does Fit for Play. Seatbelt Use: always Sunscreen Use: No Assistive Devices: Cane, Glasses, Scooter/Electric Scooter and Walker Review of Systems Review of Systems: All systems reviewed & are unremarkable except as noted in HPI & below Physical Exam Constitutional: well developed; + not well nourished and no acute distress Eyes: PERRL, conjunctivae normal, anicteric sclerae ENMT: external ear and nose normal, oropharynx normal Respiratory: normal respiratory effort, lungs clear to auscultation Cardiovascular: Rate/Rhythm: regular rate and regular rhythm Heart Sounds: + murmur (holosystolic murmur) Extremities: normal capillary refill and + pedal edema (2+ to abdomen); no calf tenderness Gastrointestinal (Abdomen): normal bowel sounds, soft, nontender, no hepatosplenomegaly Skin: no rashes, warm and dry (no areas of cellulitis noted) Neurologic: moves all extremities and awake; not confused Psychiatric: A+Ox3, euthymic affect Results & Data Results & Data Vital Signs (Past 12 Hours) Vital Signs Temp Pulse Pulse Resp BP BP Pulse Ox 09/08/23 10:37 64 22 100 09/08/23 10:37 99/73 L 09/08/23 10:31 68 19 100 09/08/23 10:30 69 20 98 09/08/23 10:00 104/79 09/08/23 10:00 64 18 100 09/08/23 09:48 101/77 09/08/23 09:48 71 21 100 09/08/23 09:47 67 12 100 09/08/23 09:00 67 22 99 09/08/23 09:00 101/72 09/08/23 08:31 106/74 09/08/23 08:31 68 18 99 09/08/23 08:30 68 24 100 09/08/23 08:06 69 18 99 09/08/23 08:06 36.7 C 69 18 101/77 99 09/08/23 08:06 09/08/23 08:00 67 20 100 09/08/23 07:55 36.7 C 69 18 101/77 09/08/23 07:42 69 09/08/23 07:41 68 20 100 O2 Del Method 09/08/23 10:37 09/08/23 10:37 09/08/23 10:31 09/08/23 10:30 09/08/23 10:00 09/08/23 10:00 09/08/23 09:48 09/08/23 09:48 09/08/23 09:47 09/08/23 09:00 09/08/23 09:00 09/08/23 08:31 09/08/23 08:31 09/08/23 08:30 09/08/23 08:06 Room Air 09/08/23 08:06 Room Air 09/08/23 08:06 Room Air 09/08/23 08:00 09/08/23 07:55 Room Air 09/08/23 07:42 09/08/23 07:41 Laboratory Results Abnormal lab results 09/08/23 Range/Units 08:02 RBC 4.19 L (4.70-6.10) M/uL Hgb 12.6 L (14.0-18.0) g/dl Hct 38.6 L (42.0-52.0) % RDW Std Deviation 57.2 H (36.4-46.3) fL RDW Coeff of Candido 17.2 H (11.5-14.5) % MPV 13.1 H (9.4-12.4) fL Neut # (Auto) 8.20 H (1.40-6.50) K/uL Lymph # (Auto) 0.56 L (1.20-3.40) K/uL Franklin # (Auto) 0.88 H (0.11-0.59) K/uL Sodium 129 L (136-145) mmol/L Potassium 5.3 H D (3.5-5.1) mmol/L Chloride 94 L (98-107) mmol/L Carbon Dioxide 20 L (21-32) mmol/L Anion Gap 15 H (3-11) BUN 71 H (6-23) mg/dl Creatinine 2.03 H D (0.6-1.4) mg/dl BUN/Creatinine Ratio 35.0 H (10-20) Glucose 223 H (70-99(Fasting)) mg/dl Total Bilirubin 4.1 H (0.2-1.0) mg/dl AST 551 H (13-39) U/L ALT 404 H (7-52) U/L Diagnostic Findings ABDOMINAL ULTRASOUND, RIGHT UPPER QUADRANT HISTORY: Elevated bilirubin and LFTs.. COMPARISON: Abdominal ultrasound 09/02/2023. FINDINGS: Pancreas: The pancreatic head and tail are obscured by overlying bowel gas. The remaining portions of the pancreas are within normal limits. Liver: No hepatic masses. There is trace perihepatic ascites noted. Gallbladder: Thickened and edematous gallbladder wall again noted measuring up to 6 mm. There are few small stones gallbladder. Evaluation for a sonographic Kate's sign is nondiagnostic due to the patient's onboard pain medication. CBD: 6 mm. Right kidney: No hydronephrosis. IMPRESSION: 1. No significant change in the diffuse gallbladder wall thickening an cholelithiasis. This is nonspecific and could be due to underlying hepatic pathology, a low protein state, or possibly an acute cholecystitis. 2. Trace perihepatic ascites. 3. Normal caliber common bile duct. Medications Administered ER medications given: Normal saline 1000 mL bolus ordered Zosyn 4.5 g IV ECG Rate (beats per minute): 68 Rhythm: normal sinus Findings: + 1st degree AV block Comparison ECG Date: from (September 02, 2023) Change: no significant change Code Status & VTE Plan Code Status Full VTE Prophylaxis Plan VTE Prophylaxis will be ordered: Yes PG Care Time/CCT Total # of Minutes Spent Total Time Spent with Patient: Total time spent is greater than 50% in coordination of care (as documented) at patient's floor/unit and/or counseling patient: Coding Level of Care Code 43411 INT INP/OBS CARE 375MIN Diagnoses Elevated LFTs R79.89 HFrEF (heart failure with reduced ejection fraction) I50.20 High anion gap metabolic acidosis E87.29 MAIDA (acute kidney injury) N17.9 Poor balance R26.89 Type 2 diabetes mellitus with chronic kidney disease, without long-term current use of insulin, unspecified CKD stage E11.22 Chronic kidney disease stage: unspecified stage Diabetes mellitus complication detail: with chronic kidney disease Diabetes mellitus complication status: with kidney complications Diabetes mellitus correction insulin use: without petroleum terminal plant operator use Chronic gout without tophus, unspecified cause, unspecified site M1A.[id number] Chronicity: chronic Gout etiology: unspecified cause Gout site: unspecified site Presence of tophus: without tophus Gilbert disease E80.4 Muscular deconditioning R29.898 (6) Diabetes mellitus, type 2 Chronic kidney disease stage: unspecified stage Diabetes mellitus complication detail: with chronic kidney disease Diabetes mellitus complication status: with kidney complications Diabetes mellitus correction insulin use: without petroleum terminal plant operator use Qualified Code(s): E11.22 - Type 2 diabetes mellitus with diabetic chronic kidney disease (7) Gout Chronicity: chronic Gout etiology: unspecified cause Gout site: unspecified site Presence of tophus: without tophus Qualified Code(s): M1A.9XX0 - Chronic gout, unspecified, without tophus (tophi)
[2023-09-08] MEDS: PANTOprazole 40 MG in SYRINGE 0 ML IV STA (12:17)
[2023-09-08] MEDS: PIPERACILLIN/TAZOBACTAM 4.5 GM/100 ML BAG IV ONE (12:18)
[2023-09-08 12:28] LABS: Albumin Level 4.1 gm/dl (3.4-5.0); Bilirubin Direct 0.9 mg/dl (0-0.2); Bilirubin,Total 4.2 mg/dl (0.2-1.0); Calcium 9.7 mg/dl (8.6-10.3); Potassium 5.1 mmol/L (3.5-5.1)
--- NOTE | 2023-09-08 12:31 | XRay Report ---
XR chest 1V portable HISTORY: Shortness of breath. COMPARISON: Chest 09/02/2023. FINDINGS: Slightly rotated study. No pneumothorax. No pleural effusions. There are low lung volumes. The cardiac silhouette remains moderately enlarged. No evidence for pulmonary edema. Hazy appearance to the periphery the left upper lobe is likely due to the rotated study. Otherwise, no focal lung con solidations to suggest a pneumonia. IMPRESSION: No significant change compared to the prior study. Stable enlargement of the cardiac silhouette. ACT 112: Negative or not required by law. Electronically signed by: Brian Andrade M.D. 09/08/2023 12:30 PM
[2023-09-08 12:34] LABS: Albumin Globulin Ratio 1.7 (0.9-2); BUN Creatinine Ratio 37.7 (10-20); C Reactive Protein 4.05 mg/dl (0-0.5); Creatinine Clr Calc Pharmacy 38.3 ml/min; Est GFR (African American) 38.3 ml/min; Est GFR (Non-African American) 33.1 ml/min; Globulin 2.4 gm/dl (2.5-4.0); Total Protein 6.5 gm/dl (6.0-8.3)
[2023-09-08 12:42] LABS: INR 1.5 (0.9-1.1); Partial Thromboplastin Ratio 0.9; Partial Thromboplastin Time 26 Seconds (21-31)
[2023-09-08 12:50] LABS: Troponin I High Sensitivity 30.2 pg/ml (0-20)
--- NOTE | 2023-09-08 13:39 | Surgery Consultation ---
Date of Consultation September 08, 2023 Assessment & Plan (1) Gallstones: likely asymptomatic gallstones stable appearance by US check HIDA scan to r/o acute cholecystitis poor surgical candidate Present on Admission?: Yes History of Present Illness Attending Physician: Marques Verdin MD History of Present Illness This is a 78YO with a past medical history of cardiomyopathy, gilbert syndrome, hyponatremia, pancytopenia, CHF, who presents to ED for weakness. He had a US done in a previous visit showing gallstones and a 6mm thick gallbladder wall. He denies abdominal pain, N, V or anorexia. An ultrasound today shows similar findings. He has elevated TB c/w gilbert' s syndrome. No chest pain or shortness of breath. Allergies Allergy/AdvReac Type Severity Reaction Status Date / Time No Known Drug Allergies Allergy Unknown Verified 09/02/23 19:53 Home Medications Medication Instructions Recorded Confirmed Type multivitamin (Daily Multi-Vitamin 0 tab PO DAILY 03/02/19 09/08/23 History tablet) aspirin 81 mg tablet,delayed 0 mg PO 1200 07/12/19 09/08/23 History release (Irineo Low Dose Aspirin) cholecalciferol (vitamin D3) 125 0 unit PO DAILY 12/12/20 09/08/23 History mcg (5,000 unit) capsule omega-3 fatty acids 1,000 mg 0 mg PO DAILY 12/12/20 09/08/23 History capsule (Fish Oil Concentrate) ascorbic acid (vitamin C) 100 mg 0 mg PO DAILY 03/10/23 09/08/23 History chewable tablet copper gluconate 2 mg tablet 0 mg PO DAILY 03/10/23 09/08/23 History zinc acetate 50 mg (zinc) capsule 0 mg PO DAILY 03/10/23 09/08/23 History allopurinol 100 mg tablet 0 mg PO BID 06/09/23 09/08/23 History carvedilol 25 mg tablet 25 mg PO BID #180 tabs 08/20/23 09/08/23 Rx enalapril maleate 10 mg tablet 10 mg PO DAILY #90 tabs 08/20/23 09/08/23 Rx potassium chloride 10 mEq 20 meq (2 x 10 mEq) PO DAILY #180 08/20/23 09/08/23 Rx tablet,extended release tabs atorvastatin 10 mg tablet 10 mg PO QPM 09/02/23 09/08/23 History furosemide 40 mg tablet 60 mg PO QPM 09/02/23 09/08/23 History gemfibrozil 600 mg tablet 0 mg PO BID 09/02/23 09/08/23 History empagliflozin 10 mg tablet 0 mg PO DAILY 09/08/23 09/08/23 History (Jardiance) lutein 25 mg-zeaxanthin 5 mg 0 cap PO DAILY 09/08/23 09/08/23 History capsule vitamin E 100 unit tablet 0 unit PO DAILY 09/08/23 09/08/23 History Patient History Medical History Abnormal CBC Gout Gilbert disease Fatty liver Hypertension Hyperlipidemia Arrhythmia "irregular" - Follows with Dr. Krishnamurthy Spindle cell carcinoma Basal cell carcinoma Diabetes mellitus, type 2 niddm Congestive heart failure Surgical History S/P wisdom tooth extraction History of liver biopsy History of colonoscopy History of cardiac cath 2004. no stents Status post Mohs surgery x6 Family History Father Hearing loss Hypertension Mother Brain tumor Other No family history of adverse response to anesthesia No family history of bleeding disorder Denies family history of Ovarian cancer Prostate cancer Myocardial infarction Breast cancer Colorectal cancer Social History Smoking Status: Never smoker Second Hand Exposure: No; Do You Dip or Chew Tobacco: No; Hx Alcohol Use: No Hx Substance Use: No Preferred Language: Turkish Communication Ability: Effective Visual Impairment: No Limitations Hearing Ability: Normal Public Health Clinical Nurse Specialist Required: No Beliefs That Will Affect Care: None marital status: Current Living Situation: Alone current occupational status: retired How many Children do You have: 1 Feels Safe at Home: Yes Childhood Exposure to Second-Hand Smoke: No Diet: Weight Watchers caffeine: Yes (tea) during the past year weight has: remained stable Dental Care, Regularly: Yes Physical Activity Frequency: Daily Physical Activity Frequency Comment: Does Fit for Play. Seatbelt Use: always Sunscreen Use: No Assistive Devices: Cane, Glasses, Scooter/Electric Scooter and Walker Review of Systems Constitutional: + weakness; no fever, no chills and no a norexia Eyes: no problem reported Ear, Nose, Mouth, Throat: no problem reported Respiratory: no cough and no dyspnea Cardiovascular: no chest pain Gastrointestinal: no abdominal pain, no nausea, no vomiting and no change in bowel habits Genitourinary: no dysuria Musculoskeletal: no back pain Integumentary: no problem reported Neurologic: + generalized weakness; no localized wea kness Psychiatric: no behavioral changes Endocrine: no fatigue Hematologic / Lymphatic: + easy bleeding and + easy bruising Physical Exam Constitutional: + thin Eyes: PERRL ENMT: external ear and nose normal, oropharynx normal Neck: trachea midline Respiratory: normal respiratory effort, lungs clear to auscultation Cardiovascular: RRR, no murmur, no edema Gastrointestinal (Abdomen): Inspection/Auscultation: abdomen normal to inspection and normal bowel sounds; abdomen not distended Percussion/Palpation: abdomen soft; abdomen nontender, no guarding and abdomen not rigid Musculoskeletal: Head/Neck/Chest: normocephalic and head atraumatic Skin: no rashes, warm and dry Results & Data Vital Signs (Past 12 Hours) Vital Signs Temp Pulse Pulse Resp BP BP Pulse Ox 09/08/23 13:02 09/08/23 13:00 59 L 17 100 09/08/23 13:00 101/72 09/08/23 12:43 62 09/08/23 12:31 64 20 100 09/08/23 12:31 102/68 09/08/23 12:30 59 L 17 100 09/08/23 12:03 63 17 100 09/08/23 12:03 95/69 L 09/08/23 12:00 64 19 100 09/08/23 11:30 62 21 100 09/08/23 11:00 100/74 09/08/23 11:00 65 21 100 09/08/23 10:37 64 22 100 09/08/23 10:37 99/73 L 09/08/23 10:31 68 19 100 09/08/23 10:30 69 20 98 09/08/23 10:00 104/79 09/08/23 10:00 64 18 100 09/08/23 09:48 101/77 09/08/23 09:48 71 21 100 09/08/23 09:47 67 12 100 09/08/23 09:00 67 22 99 09/08/23 09:00 101/72 09/08/23 08:31 106/74 09/08/23 08:31 68 18 99 09/08/23 08:30 68 24 100 09/08/23 08:06 69 18 99 09/08/23 08:06 36.7 C 69 18 101/77 99 09/08/23 08:06 09/08/23 08:00 67 20 100 09/08/23 07:55 36.7 C 69 18 101/77 09/08/23 07:42 69 09/08/23 07:41 68 20 100 O2 Del Method 09/08/23 13:02 Room Air 09/08/23 13:00 09/08/23 13:00 09/08/23 12:43 09/08/23 12:31 09/08/23 12:31 09/08/23 12:30 09/08/23 12:03 09/08/23 12:03 09/08/23 12:00 09/08/23 11:30 09/08/23 11:00 09/08/23 11:00 09/08/23 10:37 09/08/23 10:37 09/08/23 10:31 09/08/23 10:30 09/08/23 10:00 09/08/23 10:00 09/08/23 09:48 09/08/23 09:48 09/08/23 09:47 09/08/23 09:00 09/08/23 09:00 09/08/23 08:31 09/08/23 08:31 09/08/23 08:30 09/08/23 08:06 Room Air 09/08/23 08:06 Room Air 09/08/23 08:06 Room Air 09/08/23 08:00 09/08/23 07:55 Room Air 09/08/23 07:42 09/08/23 07:41 Diagnostic Findings ABDOMINAL ULTRASOUND, RIGHT UPPER QUADRANT HISTORY: Elevated bilirubin and LFTs.. COMPARISON: Abdominal ultrasound 09/02/2023. FINDINGS: Pancreas: The pancreatic head and tail are obscured by overlying bowel gas. The remaining portions of the pancreas are within normal limits. Liver: No hepatic masses. There is trace perihepatic ascites noted. Gallbladder: Thickened and edematous gallbladder wall again noted measuring up to 6 mm. There are few small stones gallbladder. Evaluation for a sonographic Kate's sign is nondiagnostic due to the patient's onboard pain medication. CBD: 6 mm. Right kidney: No hydronephrosis. IMPRESSION: 1. No significant change in the diffuse gallbladder wall thickening an cholelithiasis. This is nonspecific and could be due to underlying hepatic pathology, a low protein state, or possibly an acute cholecystitis. 2. Trace perihepatic ascites. 3. Normal caliber common bile duct.
[2023-09-08] MEDS: LORazepam 0.25 MG in SYRINGE 0.125 ML IV PRN (14:15)
[2023-09-08] MEDS: LORazepam 1 MG/1 ML SYR ED Inj Use ONE (14:17)
--- NOTE | 2023-09-08 15:52 | Magnetic Resonance Report ---
MR MRCP HISTORY: Elevated LFTs ?choledocholithiasis TECHNIQUE: MRCP of the abdomen was performed without contrast according to standard departmental prot ocol. COMPARISON STUDY: Abdominal ultrasound 09/08/2023. FINDINGS: The heart is enlarged. There is a trace pericardial effusion. There are trace bilateral ple ural effusions. Moderate body wall edema is noted. S-shaped scoliosis of the thoracolumbar spine. Tra ce ascites and mesenteric/retroperitoneal edema is noted. There is also mild perinephric edema. Nondi agnostic evaluation to assess for a filling defect within the common bile duct due to motion artifact . However, the common bile duct is normal in course and caliber measuring up to 4 mm in diameter. The re is no intrahepatic bile duct dilatation. Therefore, this is unlikely to represent an obstructing c ommon bile duct stone. The main pancreatic duct is not well visualized due to the motion artifact but likely normal in course and caliber. No hepatic or splenic masses. There are 2 T2 hyperintense lesio ns within the right kidney with the largest measuring 2 cm. These are incompletely characterized on t his noncontrast study but favor cysts. The adrenal glands are unremarkable. No hydronephrosis. Normal left kidney. No peripancreatic edema is noted. This is likely due to the patient's diffuse edematous state. The visualized loops of bowel show no wall thickening or obstruction. Diffuse gallbladder wal l thickening with a few small gallstones again noted. IMPRESSION: 1. Trace pericardial effusion, trace pleural effusions, trace ascites, and moderate body wall edema c onsistent with a diffuse edematous state. 2. Gallbladder wall thickening with a few small gallstones again noted. This is likely due to the pat ient's diffuse edematous state. A superimposed acute cholecystitis would be difficult to exclude by ifeanyi escobar. 3. Nondiagnostic evaluation to assess for a filling defect within the common bile duct due to motion artifact. However, the common bile duct is normal in course and caliber measuring up to [address] There is no intrahepatic bile duct dilatation. 4. Moderate cardiomegaly. 5. Additional findings as described above. ACT 112: Negative or not required by law. Electronically signed by: Brian Andrade M.D. 09/08/2023 3:51 PM
[2023-09-08] MEDS: PIPERACILLIN/TAZOBACTAM 4.5 GM in DEXTROSE 5% MINI-B 100 ML IV SCH (17:47)
[2023-09-08] MEDS: allopurinoL 100 MG TAB PO SCH (20:23)
[2023-09-08] MEDS ORDERED: allopurinoL 100 MG TAB PO SCH (21:00)
--- NOTE | 2023-09-08 21:26 | Communication Note ---
Date of Service: September 08, 2023 MRCP essentially non-diagnostic however common bile duct is normal in course and caliber. With this result in addition to the lack of abdominal pain or elevated white blood count likelihood of choledocholithiasis causing raised liver enzymes appear sufficiently small that we can discontinue antibiotics and start diet. Most likely circumstance he has shocked his liver (temporarily hypotensive) +/- liver congestion (temporary sudden worsening HF) although it is unclear how he has done this in such a short time span since he was only discharged yesterday and raises the possibility of an arrhythmia at the time when he feels a panic attack. Troponin stable therefore acute coronary syndrome adequately ruled out. He was given 1 L NSS in the emergency room and despite this does not appear to have gone and significant worsening heart failure symptoms therefore liver congestion without an arrhythmia appears unlikely. He also appeared to be reaching a hypovolemic state yesterday as explained in the H&P therefore considered he became hypotensive however since his MAP has remained about 65 since arrival and he didn't take any of his usual antihypertensives I am not clear why this would have happened except in the case of an arrhythmia. Will continue to monitor on telemetry. He appears to be a candidate for biventricular/ICD which was noted by Dr. Waite last admission which given recent unexplained events and readmission will consult cardiology to consider this as an inpatient.
[2023-09-08] MEDS: carvediloL 12.5 MG TAB PO SCH (21:41)
[2023-09-08 23:11] LABS: Appearance Urine Clear (Clear); Bacteria Urine Automated Negative (Negative); Bilirubin Urine Negative (Negative); Blood Urine Negative (Negative); Color Urine Yellow; Epithelial Cell Urine Auto 0-5 /lpf (0-5); Glucose Urine UA Negative (Negative); Ketones Urine Negative (Negative); Leukocyte Esterase Urine Negative (Negative); Nitrite Urine Negative (Negative); Protein Urine 1+ (Negative); RBC Urine Automated 0-4 /hpf (0-4); Specific Gravity Urine 1.017 (1.000-1.030); Urobilinogen Urine Negative (Negative); WBC Urine Automated 0 /hpf (0-5)
[2023-09-08] MEDS: HEPARIN SOD 5,000 UNIT/0.5 ML VIAL SQ SCH (23:43)
[2023-09-09 07:22] LABS: Basophils # (auto) 0.01 K/uL (0.00-0.20); Basophils % (auto) 0.1 %; Hematocrit (blood only) 32.4 % (42.0-52.0); Hemoglobin 10.8 g/dl (14.0-18.0); Immature Granulocytes # (auto) 0.04 K/uL (0.01-0.20); Immature Granulocytes % (auto) 0.6 %; Lymphocytes # (auto) 0.49 K/uL (1.20-3.40); Mean Corpuscular Hemoglobin 29.8 pg (25.0-34.0); Mean Corpuscular Hgb Conc 33.3 g/dL (32.0-36.0); Mean Corpuscular Volume 89.3 fL (80.0-100.0); Mean Platelet Volume 12.5 fL (9.4-12.4); Monocytes # (auto) 0.74 K/uL (0.11-0.59); Monocytes % (auto) 10.5 %; Neutrophils # (auto) 5.74 K/uL (1.40-6.50); Neutrophils % (auto) 81.8 %; Platelet Count 102 K/uL (130-400); RDW Coefficient of Variation 17.2 % (11.5-14.5); Red Blood Count 3.63 M/uL (4.70-6.10); White Blood Count 7.02 K/ul (4.8-10.8)
[2023-09-09 07:41] LABS: BUN Creatinine Ratio 38.1 (10-20); Calcium 9.1 mg/dl (8.6-10.3); Creatinine Clr Calc Pharmacy 33.4 ml/min; Est GFR (African American) 36.9 ml/min; Est GFR (Non-African American) 31.8 ml/min; Potassium 4.4 mmol/L (3.5-5.1)
[2023-09-09 07:57] LABS: Albumin Level 3.5 gm/dl (3.4-5.0); Bilirubin Direct 0.8 mg/dl (0-0.2); Bilirubin,Total 3.2 mg/dl (0.2-1.0); Magnesium 2.3 mg/dl (1.7-2.4); Total Protein 5.5 gm/dl (6.0-8.3)
[2023-09-09 08:45] LABS: Troponin I High Sensitivity 30.7 pg/ml (0-20)
--- NOTE | 2023-09-09 09:46 | Surgery Progress Note ---
Date of Service September 09, 2023 Assessment & Plan (1) Gallstones: Plan: asymptomatic TB secondary to [place] MRCP negative no surgical issues would only remove GB if acute cholecystitis will sign off Admission and Anticipated Discharge Date Admission Date: September 08, 2023 Subjective no abdominal pain Review of Systems Constitutional: no fever and no chills Respiratory: no cough and no dyspnea Cardiovascular: no chest pain Gastrointestinal: no abdominal pain, no nausea, no vomiting and no change in bowel habits Genitourinary: no dysuria Musculoskeletal: no back pain Physical Exam Gastrointestinal (Abdomen): Inspection/Auscultation: abdomen normal to inspection and normal bowel sounds; abdomen not distended Percussion/Palpation: abdomen soft; abdomen nontender, no guarding and abdomen not rigid Results & Data Vital Signs (Past 12 Hours) Vital Signs Temp Pulse Pulse Resp BP BP Pulse Ox 09/09/23 04:27 36.5 C 61 20 101/71 97 09/08/23 23:37 36.4 C L 58 L 20 106/70 97 09/08/23 23:35 09/08/23 22:30 79 28 H 101/74 98 09/08/23 22:00 66 O2 Del Method 09/09/23 04:27 Room Air 09/08/23 23:37 Room Air 09/08/23 23:35 Room Air 09/08/23 22:30 Room Air 09/08/23 22:00
[2023-09-09] MEDS: ASPIRIN 81 MG ECTAB PO SCH (11:34)
[2023-09-09 13:56] LABS: HBSAG NON-REACTIVE (NON-REACTIVE); Hepatitis A Antibody IgM NON-REACTIVE (NON-REACTIVE); Hepatitis B Core Antibody IgM NON-REACTIVE (NON-REACTIVE)
--- NOTE | 2023-09-09 15:00 | Cardiology Progress Note ---
Date of Service September 09, 2023 Assessment & Plan (1) Nonischemic cardiomyopathy: Plan: -LVEF <20% on echocardiogram earlier this month. -continue carvedilol. -enalapril, Jardiance, Lasix, potassium all on hold currently. -reason knows medications as able, however, would keep Lasix on a p.r.n. basis. -he continues to refuse an implantable defibrillator. -may be time to discuss code status. (2) Chronic systolic (congestive) heart failure: Plan: -appears intravascularly depleted. -agree with holding Lasix currently. (3) Mitral regurgitation: Plan: -severe in degree on recent echocardiogram. -not a candidate for repair due to severe left ventricular dysfunction. Admission and Anticipated Discharge Date Admission Date: September 08, 2023 Subjective The patient is resting comfortably in the bedside chair without complaints of chest pain or dyspnea. Physical Exam Physical Exam: In general this is a well-developed well-nourished white male in no acute distress. HEENT exam is negative. Neck is supple with full carotid upstrokes. T here are no carotid bruits. No jugular venous distention. There is no thyromegaly. Cardiovascular exam reveals a regular rhythm with a normal S1 and S2. Heart sounds are distant. An S3 is noted. There no murmurs. Lungs are clear without rales, rhonchi, or wheezes. Abdomen is obese without bruits. Extremities reveal intact radial artery pulses bilaterally. 1+ pretibial edema is noted along with hyperpigmentation changes. Results & Data Vital Signs (Past 12 Hours) Vital Signs Temp Pulse Pulse Resp BP Pulse Ox O2 Del Method 09/09/23 11:02 36.7 C 66 16 93/65 L 99 Room Air 09/09/23 09:00 56 L 09/09/23 09:00 Room Air 09/09/23 04:27 36.5 C 61 20 101/71 97 Room Air Laboratory Results BNP >4700. Diagnostic Findings annealing operator notes sinus rhythm. PG Care Time/CCT Total # of Minutes Spent Total Time Spent with Patient: Total time spent is greater than 50% in coordination of care (as documented) at patient's floor/unit and/or counseling patient: Coding Level of Care Code 14380 SUB INP/OBS CARE 3/50MIN Diagnoses Nonischemic cardiomyopathy I42.8 Chronic systolic (congestive) heart failure I50.22 Mitral regurgitation I34.0
[2023-09-09] MEDS: SIMETHICONE 80 MG CHEW PO PRN (16:03)
--- NOTE | 2023-09-09 19:07 | Hospitalist Progress Note ---
Date of Service September 09, 2023 Assessment & Plan (1) Elevated LFTs: Plan: With elevated total bilirubin at 4.1, and elevated AST/ALT/alkaline phosphatase, elevated INR, low platelets (which have actually been more chronic especially in setting of recent human metapneumovirus infection)-consistent with shock liver if had hypotension at home as he was on Jardiance, carvedilol, higher doses of furosemide, and enalapril. Alternative and more likely is hepatic congestion from right-sided heart failure Initially there was concern for acute cholecystitis with choledocholithiasis although no right upper quadrant pain on exam. RUQ US with diffuse GB wall thickening and cholelithiasis but could be from edematous state MRCP showed trace pericardial effusion, trace pleural effusions, trace ascites, moderate body wall edema, gallbladder wall thickening with cholelithiasis-cannot exclude acute cholecystitis, and nondiagnostic evaluation to assess for a filling defect within the CBD due to motion artifact. However, the common bile duct is normal in course and caliber measuring up to 4 mm in diameter. There is no intrahepatic bile duct dilatation. General surgery consultation appreciated-does not feel this is an acute cholecystitis-no surgical intervention needed LFTs are beginning to trend downward. Patient has no abdominal pain APAP level and alcohol level negative -Continue holding home atorvastatin and gemfibrozil -Will diurese with IV Bumex given that he is clearly hypervolemic on examination and cautiously watch renal function and will follow LFTs, INR, CBC (2) HFrEF (heart failure with reduced ejection fraction): Plan: With acute on chronic HFrEF and right-sided heart failure, nonischemic, severe with LVEF 15-20% he states since 2004. Also with severe MR-not a candidate for repair due to severe LV dysfunction He has declined to have ICD placed With abdominal bloating, ascites, elevated LFTs, and peripheral edema consistent with right-sided heart failure which is secondary to left-sided heart failure He was recently admitted for such and diuresed and sent home on a higher dose of Lasix 80 mg daily in addition to his enalapril and carvedilol as well as started on Jardiance He also reports having panic attacks recently when he tries to walk where he feels very short of breath but his vital signs are normal during the events Renal function worse than usual and hyponatremia worse on admission from previous On admission, his furosemide, enalapril, and Jardiance were held, carvedilol was lowered to 12.5 Mg twice daily due to soft blood pressures Appreciate cardiology consultation -Give Bumex 2 mg IV x 1 now and reassess in the morning -Follow BMP, magnesium -Continue carvedilol at lower dose -Continue holding enalapril and Jardiance for now given acute kidney injury -Consider palliative discussion given overall poor prognosis (3) MAIDA (acute kidney injury): Plan: Creatinine up to 2.03 on admission and only slightly improved today at 1.97-was given 1 L of normal saline in the ER He is volume overloaded as above with poor forward flow from severely low EF No evidence of urinary obstruction Diurese with IV Bumex and follow renal function, urine output (4) High anion gap metabolic acidosis: Plan: Alcohol level negative, lactate elevated at 3.6 on admission and now down to normal-likely from intravascular volume depletion Follow BMP (5) Poor balance: Plan: Reports baseline unsteady on his feet - consider rehabilitation on discharge PT/OT evaluations placed (6) Diabetes mellitus, type 2: Plan: HbA1c 6.0 [09/03/2023] and has been in the normal to prediabetic range for many years-he does not have diabetes He does not need blood sugar checks He is on Jardiance for his heart failure (7) Gout: Plan: Continue allopurinol renally dosed No current exacerbation (8) Gilbert disease: Plan: History of such but the current LFT elevation is not from this as he also has elevation of AST/ALT/alkaline phosphatase Plan VTE prophylaxis - heparin SQ Disposition -continued stay in PCU Admission and Anticipated Discharge Date Admission Date: September 08, 2023 Subjective Pt very talkative and speaks for 15 min straight without any dyspnea. Feels his abdomen has been more bloated like he has gas but not really having flatulence. Moving bowels but not as much as usual. Legs are definitely more swollen than usual. Tele with NSR, PACs, rates 50-60s Physical Exam Constitutional: WD/WN, vitals as above Respiratory: normal respiratory effort, lungs clear to auscultation Cardiovascular: Rate/Rhythm: regular rate and regular rhythm Heart Sounds: + murmur (2/6 holosystolic murmur at apex) Extremities: + edema (2+ pitting edema to thighs bilat) Gastrointestinal (Abdomen): Inspection/Auscultation: abdomen normal to inspection, + abdomen distended (mild) and normal bowel sounds Percussion/Palpation: abdomen soft; abdomen nontender Psychiatric: A+Ox3, euthymic affect Results & Data Results & Data Vital Signs (Past 12 Hours) Vital Signs Temp Pulse Pulse Resp BP BP Pulse Ox 09/09/23 18:30 63 17 94/68 L 99 09/09/23 15:16 63 09/09/23 15:11 36.4 C L 66 18 94/65 L 99 09/09/23 11:02 36.7 C 66 16 93/65 L 99 09/09/23 09:00 56 L 09/09/23 09:00 O2 Del Method 09/09/23 18:30 Room Air 09/09/23 15:16 09/09/23 15:11 Room Air 09/09/23 11:02 Room Air 09/09/23 09:00 09/09/23 09:00 Room Air Laboratory Results CBC, BMP, troponin, lactate, LFTs reviewed PG Care Time/CCT Total # of Minutes Spent Total Time Spent with Patient: Total time spent is greater than 50% in coordination of care (as documented) at patient's floor/unit and/or counseling patient: Coding Level of Care Code 38999 SUB INP/OBS CARE 3/50MIN Diagnoses Elevated LFTs R79.89 HFrEF (heart failure with reduced ejection fraction) I50.20 MAIDA (acute kidney injury) N17.9 High anion gap metabolic acidosis E87.29 Poor balance R26.89 Type 2 diabetes mellitus with chronic kidney disease, without long-term current use of insulin, unspecified CKD stage E11.22 Chronic kidney disease stage: unspecified stage Diabetes mellitus complication detail: with chronic kidney disease Diabetes mellitus complication status: with kidney complications Diabetes mellitus terminal gauger insulin use: without terminal gauger use Chronic gout without tophus, unspecified cause, unspecified site [id number] Chronicity: chronic Gout etiology: unspecified cause Gout site: unspecified site Presence of tophus: without tophus Gilbert disease E80.4 (6) Diabetes mellitus, type 2 Chronic kidney disease stage: unspecified stage Diabetes mellitus complication detail: with chronic kidney disease Diabetes mellitus complication status: with kidney complications Diabetes mellitus terminal gauger insulin use: without terminal gauger use Qualified Code(s): E11.22 - Type 2 diabetes mellitus with diabetic chronic kidney disease (7) Gout Chronicity: chronic Gout etiology: unspecified cause Gout site: unspecified site Presence of tophus: without tophus Qualified Code(s): [id number].[id number] - Chronic gout, unspecified, without tophus (tophi)
[2023-09-09] MEDS: BUMETANIDE 2 MG in SYRINGE 0 ML IV ONE (20:57)
[2023-09-10 08:25] LABS: BUN Creatinine Ratio 43.8 (10-20); Calcium 8.8 mg/dl (8.6-10.3); Est GFR (African American) 41.7 ml/min; Potassium 3.9 mmol/L (3.5-5.1)
[2023-09-10 08:42] LABS: Albumin Level 3.6 gm/dl (3.4-5.0); Bilirubin Direct 0.8 mg/dl (0-0.2); Bilirubin,Total 3.1 mg/dl (0.2-1.0); Magnesium 2.3 mg/dl (1.7-2.4); Total Protein 5.8 gm/dl (6.0-8.3)
[2023-09-10 09:31] LABS: Hematocrit (blood only) 32.4 % (42.0-52.0); Hemoglobin 11.2 g/dl (14.0-18.0); Mean Corpuscular Hemoglobin 30.2 pg (25.0-34.0); Mean Corpuscular Hgb Conc 34.6 g/dL (32.0-36.0); Mean Corpuscular Volume 87.3 fL (80.0-100.0); Nucleated RBC # (auto) 0.04 K/uL (0.00-0.12); Nucleated RBC % (auto) 0.5 %; Platelet Count 109 K/uL (130-400); RDW Coefficient of Variation 17.8 % (11.5-14.5); RDW Standard Deviation 54.8 fL (36.4-46.3); Red Blood Count 3.71 M/uL (4.70-6.10); White Blood Count 7.81 K/ul (4.8-10.8)
[2023-09-10 09:58] LABS: Acanthocytes 1+; Basophils # (auto) 0.02 K/uL (0.00-0.20); Basophils % (auto) 0.3 %; Echinocytes 2+; Eosinophils # (auto) 0.02 K/uL (0.00-0.50); Eosinophils % (auto) 0.3 %; Immature Granulocytes # (auto) 0.06 K/uL (0.01-0.20); Immature Granulocytes % (auto) 0.8 %; Lymphocytes # (auto) 0.66 K/uL (1.20-3.40); Lymphocytes % (auto) 8.5 %; Monocytes # (auto) 0.94 K/uL (0.11-0.59); Neutrophils # (auto) 6.11 K/uL (1.40-6.50); Neutrophils % (auto) 78.1 %; Polychromasia 1+
[2023-09-10 10:05] LABS: INR 1.5 (0.9-1.1); Prothrombin Time 16.1 Seconds (9.0-12.0)
[2023-09-10] MEDS: BUMETANIDE 2 MG in SYRINGE 0 ML IV SCH (10:49)
--- NOTE | 2023-09-10 11:06 | Cardiology Progress Note ---
Date of Service September 10, 2023 Assessment & Plan (1) Nonischemic cardiomyopathy: Plan: -LVEF <20% on current echocardiogram. -continue carvedilol 12.5 mg b.i.d. -enalapril, Jardiance, Lasix, and potassium currently on hold. -restart those medications as able, however, would keep Bumex on a p.r.n. basis. -he continues to refuse an implantable defibrillator. -may be time to discuss code status. (2) Chronic systolic (congestive) heart failure: Plan: -received 1 dose of Bumex yesterday. -appears compensated today. (3) Mitral regurgitation: Plan: -severe in degree on current echocardiogram. -not a candidate for repair due to severe left ventricular dysfunction. Admission and Anticipated Discharge Date Admission Date: September 08, 2023 Subjective The patient is resting comfortably at the bedside without complaints of chest pain or dyspnea. Physical Exam Physical Exam: In general this is a well-developed well-nourished white male in no acute distress. HEENT exam is negative. Neck is supple with full carotid upstrokes. There are no carotid bruits. No jugular venous distention. There is no thyromegaly. Cardiovascular exam reveals a regular rhythm with a normal S1 and S2. Heart sounds are distant. An S3 is noted. There no murmurs. Lungs are clear without rales, rhonchi, or wheezes. Abdomen is obese without bruits. Extremities reveal intact radial artery pulses bilaterally. 1+ pretibial edema is noted along with hyperpigmentation changes. Results & Data Vital Signs (Past 12 Hours) Vital Signs Temp Pulse Pulse Resp BP Pulse Ox O2 Del Method 09/10/23 08:00 60 09/10/23 07:32 Room Air 09/10/23 07:29 36.3 C L 51 L 18 111/46 L 97 Room Air 09/10/23 03:03 36.4 C L 57 L 18 99/69 L 99 Room Air 09/09/23 23:16 36.5 C 64 17 112/72 98 Room Air Diagnostic Findings court recording monitor notes sinus rhythm with frequent PVCs. PG Care Time/CCT Total # of Minutes Spent Total Time Spent with Patient: Total time spent is greater than 50% in coordination of care (as documented) at patient's floor/unit and/or counseling patient: Coding Level of Care Code 72352 SUB INP/OBS CARE MIN Diagnoses Nonischemic cardiomyopathy I42.8 Chronic systolic (congestive) heart failure I50.22 Mitral regurgitation I34.0
--- NOTE | 2023-09-10 15:59 | Hospitalist Progress Note ---
Date of Service September 10, 2023 Assessment & Plan (1) Elevated LFTs: Plan: With elevated total bilirubin at 4.1, and elevated AST/ALT/alkaline phosphatase, elevated INR, low platelets (which have actually been more chronic especially in setting of recent human metapneumovirus infection)-consistent with shock liver if had hypotension at home as he was on Jardiance, carvedilol, higher doses of furosemide, and enalapril. Alternatively and more likely is hepatic congestion from right-sided heart failure. Initially there was concern for acute cholecystitis with choledocholithiasis although no right upper quadrant pain on exam. RUQ US with diffuse GB wall thickening and cholelithiasis but could be from edematous state MRCP showed trace pericardial effusion, trace pleural effusions, trace ascites, moderate body wall edema, gallbladder wall thickening with cholelithiasis-cannot exclude acute cholecystitis, and nondiagnostic evaluation to assess for a filling defect within the CBD due to motion artifact. However, the common bile duct is normal in course and caliber measuring up to 4 mm in diameter. There is no intrahepatic bile duct dilatation. General surgery consultation appreciated-does not feel this is an acute cholecystitis-no surgical intervention needed LFTs are beginning to trend downward/stable today with IV diuresis- total bilirubin is down to 3.1, AST and ALT remain in the 500s, alkaline phosphatase now mildly elevated in the 170s. Patient has no abdominal pain APAP level and alcohol level negative Hepatitis A, B, and C are negative As per review of up-to-date, human metapneumovirus is not known to cause hepatitis -Continue holding home atorvastatin and gemfibrozil -Continue to diurese with IV Bumex given that he is clearly hypervolemic on examination and cautiously watch renal function -will follow LFTs, INR, CBC (2) HFrEF (heart failure with reduced ejection fraction): Plan: With acute on chronic HFrEF and right-sided heart failure, nonischemic, severe with LVEF 15-20% he states since 2004. Also with severe MR-not a candidate for repair due to severe LV dysfunction He has declined to have ICD placed With abdominal bloating, ascites, elevated LFTs, and peripheral edema consistent with right-sided heart failure which is secondary to left-sided heart failure He was recently admitted for such and diuresed and sent home on a higher dose of Lasix 80 mg daily in addition to his enalapril and carvedilol as well as started on Jardiance He also reports having panic attacks recently when he tries to walk where he feels very short of breath but his vital signs are normal during the events Renal function decreased on admission and hyponatremia on admission -now renal function improving with diuresis and holding enalapril and Jardiance-creatinine down to 1.7. Na+ stable at 130 Appreciate cardiology consultation -Continue to hold home furosemide, enalapril, and Jardiance due to acute kidney injury -carvedilol was lowered to 12.5 Mg twice daily due to soft blood pressures -Give another dose of Bumex 2 mg IV x 1 now and reassess in the morning -Follow BMP, magnesium (3) MAIDA (acute kidney injury): Plan: Creatinine up to 2.03 on admission and only slightly improved today at 1.97-was given 1 L of normal saline in the ER He is volume overloaded as above with poor forward flow from severely low EF No evidence of urinary obstruction Diurese with IV Bumex and follow renal function, urine output (4) High anion gap metabolic acidosis: Plan: Alcohol level negative, lactate elevated at 3.6 on admission and now down to normal-likely from intravascular volume depletion Follow BMP (5) Poor balance: Plan: Reports baseline unsteady on his feet - consider rehabilitation on discharge PT/OT evaluations placed (6) Diabetes mellitus, type 2: Plan: HbA1c 6.0 [09/03/2023] and has been in the normal to prediabetic range for many years-he does not have diabetes He does not need blood sugar checks He is on Jardiance for his heart failure (7) Gout: Plan: Continue allopurinol renally dosed No current exacerbation (8) Gilbert disease: Plan: History of such but the current LFT elevation is not from this as he also has elevation of AST/ALT/alkaline phosphatase (9) Anxiety: Plan: Having increased panic attacks with his dyspnea from heart failure Will discuss with him about possibility of starting on Zoloft for anxiety and panic disorder Plan VTE prophylaxis - heparin SQ Disposition -continued stay in PCU, PT recommending rehab stay-will ask CM to make referrals FULL CODE-discussed with patient at length-he declines an ICD because he doesn't like the idea of having a foreign object inside his body however he does want CPR/defibrillation, etc. in case of cardiac arrest Admission and Anticipated Discharge Date Admission Date: September 08, 2023 Subjective Patient reports decent urine output, still with leg swelling and some mild abdominal bloating. Has not moved his bowels today. Feels short of breath with talking too much and walking short distances but did work with PT today. Telemetry with normal sinus rhythm, PVCs and bigeminy, a few 3-4 beat runs of VT, rates in the 50s to 60s Physical Exam Constitutional: WD/WN, vitals as above Respiratory: normal respiratory effort, lungs clear to auscultation Cardiovascular: Rate/Rhythm: regular rate and regular rhythm Heart Sounds: + murmur (2/6 holosystolic murmur at apex) Extremities: + edema (2+ pitting edema to thighs bilat) Gastrointestinal (Abdomen): Inspection/Auscultation: abdomen normal to inspection, + abdomen distended (mild) and normal bowel sounds Percussion/Palpation: abdomen soft; abdomen nontender Psychiatric: A+Ox3, euthymic affect Results & Data Results & Data Vital Signs (Past 12 Hours) Vital Signs Temp Pulse Pulse Resp BP BP Pulse Ox 09/10/23 15:23 36.4 C L 57 L 18 99/67 L 99 09/10/23 11:27 36.3 C L 64 19 101/71 96 09/10/23 08:00 60 09/10/23 07:32 09/10/23 07:29 36.3 C L 51 L 18 111/46 L 97 O2 Del Method 09/10/23 15:23 Room Air 09/10/23 11:27 Room Air 09/10/23 08:00 09/10/23 07:32 Room Air 09/10/23 07:29 Room Air Laboratory Results CBC, CMP, INR, hepatitis panel, blood cultures reviewed PG Care Time/CCT Total # of Minutes Spent Total Time Spent with Patient: Total time spent is greater than 50% in coordination of care (as documented) at patient's floor/unit and/or counseling patient: Coding Level of Care Code 63945 SUB INP/OBS CARE 3/50MIN Diagnoses Elevated LFTs R79.89 HFrEF (heart failure with reduced ejection fraction) I50.20 MAIDA (acute kidney injury) N17.9 High anion gap metabolic acidosis E87.29 Poor balance R26.89 Type 2 diabetes mellitus with chronic kidney disease, without long-term current use of insulin, unspecified CKD stage E11.22 Chronic kidney disease stage: unspecified stage Diabetes mellitus complication detail: with chronic kidney disease Diabetes mellitus complication status: with kidney complications Diabetes mellitus supervisor intermediates insulin use: without supervisor intermediates use Chronic gout without tophus, unspecified cause, unspecified site [id number] Chronicity: chronic Gout etiology: unspecified cause Gout site: unspecified site Presence of tophus: without tophus Gilbert disease E80.4 Anxiety F41.9 (6) Diabetes mellitus, type 2 Chronic kidney disease stage: unspecified stage Diabetes mellitus complication detail: with chronic kidney disease Diabetes mellitus complication status: with kidney complications Diabetes mellitus supervisor intermediates insulin use: without retirement use Qualified Code(s): E11.22 - Type 2 diabetes mellitus with diabetic chronic kidney disease (7) Gout Chronicity: chronic Gout etiology: unspecified cause Gout site: unspecified site Presence of tophus: without tophus Qualified Code(s): M1A.9XX0 - Chronic gout, unspecified, without tophus (tophi)
[2023-09-11 06:34] LABS: Basophils # (auto) 0.01 K/uL (0.00-0.20); Basophils % (auto) 0.2 %; Eosinophils # (auto) 0.06 K/uL (0.00-0.50); Hematocrit (blood only) 33.1 % (42.0-52.0); Hemoglobin 11.2 g/dl (14.0-18.0); Immature Granulocytes # (auto) 0.04 K/uL (0.01-0.20); Immature Granulocytes % (auto) 0.7 %; Lymphocytes # (auto) 0.65 K/uL (1.20-3.40); Lymphocytes % (auto) 11.1 %; Mean Corpuscular Hemoglobin 30.2 pg (25.0-34.0); Mean Corpuscular Hgb Conc 33.8 g/dL (32.0-36.0); Mean Corpuscular Volume 89.2 fL (80.0-100.0); Mean Platelet Volume 12.1 fL (9.4-12.4); Monocytes # (auto) 0.64 K/uL (0.11-0.59); Neutrophils # (auto) 4.43 K/uL (1.40-6.50); Platelet Count 89 K/uL (130-400); RDW Coefficient of Variation 17.8 % (11.5-14.5); RDW Standard Deviation 55.2 fL (36.4-46.3); Red Blood Count 3.71 M/uL (4.70-6.10); White Blood Count 5.83 K/ul (4.8-10.8)
[2023-09-11] MEDS ORDERED: Nursing to Pharmacy Communication SCH (06:45)
[2023-09-11 06:56] LABS: INR 1.5 (0.9-1.1); Prothrombin Time 15.9 Seconds (9.0-12.0)
[2023-09-11 07:08] LABS: Albumin Level 3.5 gm/dl (3.4-5.0); BUN Creatinine Ratio 47.6 (10-20); Bilirubin Direct 0.7 mg/dl (0-0.2); Bilirubin,Total 3.2 mg/dl (0.2-1.0); Calcium 8.9 mg/dl (8.6-10.3); Creatinine Clr Calc Pharmacy 42.4 ml/min; Est GFR (African American) 44.7 ml/min; Est GFR (Non-African American) 38.6 ml/min; Magnesium 2.3 mg/dl (1.7-2.4); Potassium 3.7 mmol/L (3.5-5.1); Total Protein 5.5 gm/dl (6.0-8.3)
[2023-09-11] MEDS: BUMETANIDE 1 MG TAB PO SCH (10:24)
--- NOTE | 2023-09-11 14:25 | Cardiology Progress Note ---
Date of Service September 11, 2023 Assessment & Plan (1) HFrEF (heart failure with reduced ejection fraction): Plan: - Patient admits to frequent dietary indiscretion. Weight has been trending up in recent week. He documents this well- suspect dry weight at home 185-190 lb. He is feeling improvement however he continues to have dyspnea on exertion, lower extremity edema, and suspected hepatic congestion. Symptoms are consistent with right heart failure. LFTs improving with diuresis. May need to accept some degree of edema to preserve his kidney function. Also recovering from viral infection which may be contributing to his symptoms. Mucous membranes are dry. BUN is increasing, creatinine stable. IV Bumex transitioned to PO Bumex 2 mg this am. Continue to monitor urine output. Previous home dose was Lasix 60 mg daily which he has been on for years. Enalapril and Jardiance currently on hold. Consider transition to Entresto once able to restart. Continue to hold for now due to renal function. Patient was initiated on Jardiance last admission but was likely unable to start due to being readmitted. He's unfamiliar with this medication. Can likely restart this as outpatient once his volume status has stabilized. Could consider adding Spironolactone to help with right heart symptoms and further optimize his regimen. Will need to closely monitor renal function. Recommend daily STANDING weights. Strict I&Os while inpatient. Low sodium diet. Patient does not add salt but eats out frequently and does not pay much attention to labels. Will benefit from ongoing education. We discussed the nature of heart failure and the goals of the program. He is agreeable to enrollment and ongoing participation. (2) Nonischemic cardiomyopathy: Plan: -LVEF <20% on current echocardiogram. Chronic, longstanding. -continue carvedilol 12.5 mg b.i.d. -enalapril, Jardiance, Lasix, and potassium currently on hold. Consider transition to Entresto to further optimize when safe to restart. Can restart Jardiance as outpatient. Would recommend adding Spironolactone to help with diuresis as above. - Continues to decline ICD. -Full code. Consider outpatient palliative care eval in the future. (3) Mitral regurgitation: Plan: -severe in degree on current echocardiogram. -not a candidate for repair due to severe left ventricular dysfunction. Admission and Anticipated Discharge Date Admission Date: September 08, 2023 Subjective Patient is resting comfortably. He continues to note dyspnea on exertion and with extended periods of conversation. Is he is on room air. He has lower extremity edema. He is sleeping well with his head elevated. I&Os are not accurate. Bed scale weight is trending up. He denies chest pain, palpitations. Physical Exam Physical Exam: Constitutional: Alert, oriented, in no acute distress HEENT: Head is atraumatic and normocephalic. EOMs intact. Sclera anicteric. Face is symmetric. No perioral cyanosis. Mucous membranes dry. Neck: Supple, no JVD Pulmonary: Normal respiratory effort, clear to auscultation bilaterally Cardiac: Regular rate and rhythm. Normal S1 and S2, no gallops, no rubs, no murmurs Extremities: 2+ radial pulses bilaterally. 2+ posterior tibialis pulses bilaterally. 2+ bilateral pitting edema. No cyanosis or clubbing. Abdomen: Normal bowel sounds, soft, non-tender, no abdominal mass palpated Skin: Normal skin color, turgor, and pigmentation, no rash, no skin lesions Neurological: Patient is awake, alert, and oriented. Pleasant and cooperative. Answers questions appropriately. Speech is clear. Normal movement in all 4 extremities. Results & Data Vital Signs (Past 12 Hours) Vital Signs Temp Pulse Pulse Resp BP Pulse Ox O2 Del Method 09/11/23 13:26 Room Air 09/11/23 13:08 61 09/11/23 08:22 97.2 F L 61 12 106/72 98 Room Air 09/11/23 03:46 98.2 F 52 L 18 107/71 98 Room Air PG Care Time/CCT Total # of Minutes Spent Total Time Spent with Patient: Total time spent is greater than 50% in coordination of care (as documented) at patient's floor/unit and/or counseling patient: Coding Level of Care Code 91254 SUB INP/OBS CARE 3/50MIN Diagnoses HFrEF (heart failure with reduced ejection fraction) I50.20 Nonischemic cardiomyopathy I42.8 Mitral regurgitation I34.0
[2023-09-11] MEDS: SPIRONOLACTONE 12.5 MG TAB PO SCH (17:09)
--- NOTE | 2023-09-11 17:09 | Hospitalist Progress Note ---
Date of Service September 11, 2023 Assessment & Plan (1) Elevated LFTs: Plan: With elevated total bilirubin at 4.1, and elevated AST/ALT/alkaline phosphatase, elevated INR, low platelets (chronic, worse in setting of recent human metapneumovirus infection)-secondary to hepatic congestion from right-sided heart failure. Initially there was concern for acute cholecystitis with choledocholithiasis although no RUQ pain on exam RUQ US with diffuse GB wall thickening and cholelithiasis but could be from edematous state MRCP showed trace pericardial effusion, trace pleural effusions, trace ascites, moderate body wall edema, gallbladder wall thickening with cholelithiasis-cannot exclude acute cholecystitis, and nondiagnostic evaluation to assess for a filling defect within the CBD due to motion artifact. However, the common bile duct is normal in course and caliber measuring up to 4 mm in diameter. There is no intrahepatic bile duct dilatation. General surgery consultation appreciated-does not feel this is an acute cholecystitis-no surgical intervention needed LFTs continue to slowly trend downward with IV diuresis- total bilirubin is down to 3.1, AST and ALT in the 300-400s, alkaline phosphatase mildly elevated INR high at 1.5 APAP level and alcohol level negative Hepatitis A, B, and C are negative As per review of up-to-date, human metapneumovirus is not known to cause hepatitis -Continue holding home atorvastatin and gemfibrozil -Continue to diurese but change to po Bumex 2mg daily from IV given rising BUN -add on aldactone 12.5mg po daily -will follow LFTs, INR, CBC (2) HFrEF (heart failure with reduced ejection fraction): Plan: With acute on chronic HFrEF and right-sided heart failure, nonischemic, severe with LVEF 15-20% he states since 2004. Also with severe MR-not a candidate for repair due to severe LV dysfunction He has declined to have ICD placed With abdominal bloating, ascites, elevated LFTs, and peripheral edema consistent with right-sided heart failure which is secondary to left-sided heart failure He was recently admitted for such and diuresed and sent home on a higher dose of Lasix 80 mg daily in addition to his enalapril and carvedilol as well as started on Jardiance He also reports having panic attacks recently when he tries to walk where he feels very short of breath but his vital signs are normal during the events Renal function decreased on admission and hyponatremia on admission -now renal function improving with diuresis and holding enalapril and Jardiance-creatinine down to 1.6, BUN up to 80, Na+ improved to 131 Appreciate cardiology consultation and [facility] Clinic referral -switch home furosemide to Bumex 2mg po daily for improved GI absorption -holding home enalapril and Jardiance due to acute kidney injury-he never even started the Jardiance prior to admission -carvedilol was lowered to 12.5 Mg twice daily due to soft blood pressures -add on aldactone 12.5mg po daily and titrate up as able to -add on Entresto likely as outpt -Follow BMP, magnesium (3) MAIDA (acute kidney injury): Plan: Creatinine up to 2.03 on admission and continues to improve with diuresis to 1.6 He is volume overloaded as above with poor forward flow from severely low EF No evidence of urinary obstruction Diurese as above Follow renal function, urine output (4) High anion gap metabolic acidosis: Plan: Alcohol level negative, lactate elevated at 3.6 on admission and now down to normal-likely from intravascular volume depletion Follow BMP (5) Poor balance: Plan: Reports baseline unsteady on his feet - consider rehabilitation on discharge PT/OT evaluations placed (6) Diabetes mellitus, type 2: Plan: HbA1c 6.0 [09/03/2023] and has been in the normal to prediabetic range for many years-he does not have diabetes He does not need blood sugar checks He is on Jardiance for his heart failure (7) Gout: Plan: Continue allopurinol renally dosed No current exacerbation (8) Gilbert disease: Plan: History of such but the current LFT elevation is not from this as he also has elevation of AST/ALT/alkaline phosphatase (9) Anxiety: Plan: Having increased panic attacks with his dyspnea from heart failure Discussed with him about starting on Zoloft for anxiety and panic disorder and he is agreeable Start Zoloft 25mg po daily and titrate up in 2-3 weeks as an outpt with PCP Plan VTE prophylaxis - heparin SQ Disposition -continued stay in PCU, PT recommending rehab stay-[facility] referral made. Not medically stable for discharge yet FULL CODE-discussed with patient at length-he declines an ICD because he doesn't like the idea of having a foreign object inside his body however he does want CPR/defibrillation, etc. in case of cardiac arrest Admission and Anticipated Discharge Date Admission Date: September 08, 2023 Subjective Pt reports still feeling anxious at times and mood is down at other times. SOB with exertion. Still with swollen legs not much improved. Still feels bloating in abdomen Tele with SR, SB, 1st degree AVB, PVCs, PACs, some junctional beats, rates 40- 60s Discussed his care with [facility] Physical Exam Constitutional: WD/WN, vitals as above Respiratory: normal respiratory effort, lungs clear to auscultation Cardiovascular: Rate/Rhythm: regular rate and regular rhythm Heart Sounds: + murmur (2/6 holosystolic murmur at apex) Extremities: + edema (3+ pitting edema to thighs bilat) Gastrointestinal (Abdomen): Inspection/Auscultation: abdomen normal to inspection, + abdomen distended (mild) and normal bowel sounds Percussion/Palpation: abdomen soft; abdomen nontender Skin: chronic venous stasis changes legs bilat Psychiatric: A+Ox3, euthymic affect Results & Data Results & Data Vital Signs (Past 12 Hours) Vital Signs Temp Pulse Pulse Pulse Resp BP Pulse Ox 09/11/23 14:42 36.4 C L 65 67 H 106/74 99 09/11/23 13:26 09/11/23 13:08 61 09/11/23 08:22 36.2 C L 61 12 106/72 98 O2 Del Method 09/11/23 14:42 Room Air 09/11/23 13:26 Room Air 09/11/23 13:08 09/11/23 08:22 Room Air Laboratory Results CBC, CMP, magnesium, blood cxs reviewed PG Care Time/CCT Total # of Minutes Spent Total Time Spent with Patient: Total time spent is greater than 50% in coordination of care (as documented) at patient's floor/unit and/or counseling patient: Coding Level of Care Code 90800 SUB INP/OBS CARE 3/50MIN Diagnoses Elevated LFTs R79.89 HFrEF (heart failure with reduced ejection fraction) I50.20 MAIDA (acute kidney injury) N17.9 High anion gap metabolic acidosis E87.29 Poor balance R26.89 Type 2 diabetes mellitus with chronic kidney disease, without long-term current use of insulin, unspecified CKD stage E11.22 Chronic kidney disease stage: unspecified stage Diabetes mellitus complication detail: with chronic kidney disease Diabetes mellitus complication status: with kidney complications Diabetes mellitus intermission coordinator insulin use: without intermission coordinator use Chronic gout without tophus, unspecified cause, unspecified site [id number] Chronicity: chronic Gout etiology: unspecified cause Gout site: unspecified site Presence of tophus: without tophus Gilbert disease E80.4 Anxiety F41.9 (6) Diabetes mellitus, type 2 Chronic kidney disease stage: unspecified stage Diabetes mellitus complication detail: with chronic kidney disease Diabetes mellitus complication status: with kidney complications Diabetes mellitus nursing home insulin use: without nursing home use Qualified Code(s): E11.22 - Type 2 diabetes mellitus with diabetic chronic kidney disease (7) Gout Chronicity: chronic Gout etiology: unspecified cause Gout site: unspecified site Presence of tophus: without tophus Qualified Code(s): [id number].9XX0 - Chronic gout, unspecified, without tophus (tophi)
[2023-09-11] MEDS: SERTRALINE HCL 50 MG TABLET PO SCH (20:11)
[2023-09-12 06:58] LABS: Basophils # (auto) 0.01 K/uL (0.00-0.20); Basophils % (auto) 0.2 %; Eosinophils # (auto) 0.07 K/uL (0.00-0.50); Eosinophils % (auto) 1.1 %; Hematocrit (blood only) 35.9 % (42.0-52.0); Hemoglobin 11.7 g/dl (14.0-18.0); Immature Granulocytes # (auto) 0.05 K/uL (0.01-0.20); Immature Granulocytes % (auto) 0.8 %; Lymphocytes % (auto) 9.7 %; Mean Corpuscular Hemoglobin 29.6 pg (25.0-34.0); Mean Corpuscular Hgb Conc 32.6 g/dL (32.0-36.0); Mean Corpuscular Volume 90.9 fL (80.0-100.0); Monocytes % (auto) 11.3 %; Neutrophils # (auto) 4.77 K/uL (1.40-6.50); Neutrophils % (auto) 76.9 %; Nucleated RBC # (auto) 0.03 K/uL (0.00-0.12); Nucleated RBC % (auto) 0.5 %; Platelet Count 99 K/uL (130-400); RDW Coefficient of Variation 18.7 % (11.5-14.5); RDW Standard Deviation 56.5 fL (36.4-46.3); Red Blood Count 3.95 M/uL (4.70-6.10)
[2023-09-12 07:12] LABS: Albumin Level 3.6 gm/dl (3.4-5.0); Bilirubin Direct 0.9 mg/dl (0-0.2); Bilirubin,Total 3.3 mg/dl (0.2-1.0); Calcium 8.7 mg/dl (8.6-10.3); Creatinine Clr Calc Pharmacy 36.2 ml/min; Est GFR (African American) 40.6 ml/min; Magnesium 2.4 mg/dl (1.7-2.4); Total Protein 5.9 gm/dl (6.0-8.3)
[2023-09-12 07:31] LABS: INR 1.4 (0.9-1.1)
--- NOTE | 2023-09-12 12:57 | Hospitalist Progress Note ---
Date of Service September 12, 2023 Assessment & Plan (1) Elevated LFTs: Plan: With elevated total bilirubin at 4.1, and elevated AST/ALT/alkaline phosphatase, elevated INR, low platelets (chronic, worse in setting of recent human metapneumovirus infection)-secondary to hepatic congestion from right-sided heart failure. Initially there was concern for acute cholecystitis with choledocholithiasis although no RUQ pain on exam RUQ US with diffuse GB wall thickening and cholelithiasis but could be from edematous state MRCP showed trace pericardial effusion, trace pleural effusions, trace ascites, moderate body wall edema, gallbladder wall thickening with cholelithiasis-cannot exclude acute cholecystitis, and nondiagnostic evaluation to assess for a filling defect within the CBD due to motion artifact. However, the common bile duct is normal in course and caliber measuring up to 4 mm in diameter. There is no intrahepatic bile duct dilatation. General surgery consultation appreciated-does not feel this is an acute cholecystitis-no surgical intervention needed LFTs continue to slowly trend downward with IV diuresis- total bilirubin is down to 3.1, AST and ALT in the 300-400s, alkaline phosphatase mildly elevated INR high at 1.5 APAP level and alcohol level negative Hepatitis A, B, and C are negative As per review of up-to-date, human metapneumovirus is not known to cause hepatitis -Continue holding home atorvastatin and gemfibrozil -Continue to diurese but change to po Bumex 2mg daily from IV given rising BUN -add on aldactone 12.5mg po daily -will follow LFTs, INR, CBC (2) HFrEF (heart failure with reduced ejection fraction): Plan: With acute on chronic HFrEF and right-sided heart failure, nonischemic, severe with LVEF 15-20% he states since 2004. Also with severe MR-not a candidate for repair due to severe LV dysfunction He has declined to have ICD placed With abdominal bloating, ascites, elevated LFTs, and peripheral edema consistent with right-sided heart failure which is secondary to left-sided heart failure He was recently admitted for such and diuresed and sent home on a higher dose of Lasix 80 mg daily in addition to his enalapril and carvedilol as well as started on Jardiance He also reports having panic attacks recently when he tries to walk where he feels very short of breath but his vital signs are normal during the events Renal function decreased on admission and hyponatremia on admission -now renal function improving with diuresis and holding enalapril and Jardiance-creatinine down to 1.6, BUN up to 80, Na+ improved to 131 Appreciate cardiology consultation and CHF Clinic referral -switch home furosemide to Bumex 2mg po daily for improved GI absorption -holding home enalapril and Jardiance due to acute kidney injury-he never even started the Jardiance prior to admission -carvedilol was lowered to 12.5 Mg twice daily due to soft blood pressures -add on aldactone 12.5mg po daily and titrate up as able to -add on Entresto likely as outpt -Follow BMP (3) MAIDA (acute kidney injury): Plan: Creatinine up to 2.03 on admission and continues to improve with diuresis. Now stable at 1.6-1.8 May need to accept some degree of renal failure in the setting of severe heart failure He is volume overloaded as above with poor forward flow from severely low EF No evidence of urinary obstruction Diurese as above Follow renal function, urine output (4) High anion gap metabolic acidosis: Plan: Alcohol level negative, lactate elevated at 3.6 on admission and now down to normal-likely from intravascular volume depletion Follow BMP (5) Poor balance: Plan: Reports baseline unsteady on his feet - consider rehabilitation on discharge PT/OT evaluations placed (6) Diabetes mellitus, type 2: Plan: HbA1c 6.0 [09/03/2023] and has been in the normal to prediabetic range for many years-he does not have diabetes He does not need blood sugar checks He is on Jardiance for his heart failure (7) Gout: Plan: Continue allopurinol renally dosed No current exacerbation (8) Gilbert disease: Plan: History of such but the current LFT elevation is not from this as he also has elevation of AST/ALT/alkaline phosphatase (9) Anxiety: Plan: Having increased panic attacks with his dyspnea from heart failure Patient says that the Zoloft made him feel "loopy" and would not want to continue taking it. Discontinue Zoloft. Plan VTE prophylaxis - heparin SQ Disposition -continued stay in PCU, PT recommending rehab stay-[facility] referral made. Not medically stable for discharge yet FULL CODE-discussed with patient at length-he declines an ICD because he doesn't like the idea of having a foreign object inside his body however he does want CPR/defibrillation, etc. in case of cardiac arrest Admission and Anticipated Discharge Date Admission Date: September 08, 2023 Subjective Patient feels well. However he did not like how the Zoloft made him feel. He says he felt "loopy". He denies any chest pain or shortness of breath. Review of Systems Review of Systems: All systems reviewed & are unremarkable except as noted in Subjective Physical Exam Physical Exam: General: Awake, conversant Heart: S1, S2/regular rate and rhythm, no murmur rubs or gallops Lungs: Clear to auscultation bilaterally. Normal effort Abdomen: Soft/nontender/nondistended. No hepatosplenomegaly Extremities: No clubbing/cyanosis. 3+ pitting bilateral edema Behavior: Appropriate, cooperative Results & Data Results & Data Vital Signs (Past 12 Hours) Vital Signs Temp Pulse Pulse Resp BP Pulse Ox O2 Del Method 09/12/23 11:30 37.0 C 103 H 17 102/71 99 Room Air 09/12/23 11:24 Room Air 09/12/23 07:03 36.4 C L 47 L 19 112/72 99 Room Air 09/12/23 04:00 36.9 C 56 L 20 88/72 L 94 Room Air 09/12/23 02:01 55 L Laboratory Results Abnormal lab results 09/12/23 Range/Units 06:20 RBC 3.95 L (4.70-6.10) M/uL Hgb 11.7 L (14.0-18.0) g/dl Hct 35.9 L (42.0-52.0) % RDW Std Deviation 56.5 H (36.4-46.3) fL RDW Coeff of [place]ido 18.7 H (11.5-14.5) % Plt Count 99 L (130-400) K/uL MPV 13.0 H (9.4-12.4) fL Lymph # (Auto) 0.60 L (1.20-3.40) K/uL [place] # (Auto) 0.70 H (0.11-0.59) K/uL PT 15.0 H (9.0-12.0) Seconds INR 1.4 H (0.9-1.1) Sodium 132 L (136-145) mmol/L Chloride 97 L (98-107) mmol/L BUN 80 H (6-23) mg/dl Creatinine 1.82 H (0.6-1.4) mg/dl BUN/Creatinine Ratio 44.0 H (10-20) Glucose 141 H (70-99(Fasting)) mg/dl Total Bilirubin 3.3 H (0.2-1.0) mg/dl Direct Bilirubin 0.9 H (0-0.2) mg/dl AST 335 H (13-39) U/L ALT 486 H (7-52) U/L Alkaline Phosphatase 245 H (34-104) U/L Total Protein 5.9 L (6.0-8.3) gm/dl PG Care Time/CCT Total # of Minutes Spent Total Time Spent with Patient: Total time spent is greater than 50% in coordination of care (as documented) at patient's floor/unit and/or counseling patient: Coding Level of Care Code 31457 SUB INP/OBS CARE 2/35MIN Diagnoses Elevated LFTs R79.89 HFrEF (heart failure with reduced ejection fraction) I50.20 MAIDA (acute kidney injury) N17.9 High anion gap metabolic acidosis E87.29 Poor balance R26.89 Type 2 diabetes mellitus with chronic kidney disease, without long-term current use of insulin, unspecified CKD stage E11.22 Diabetes mellitus extermination inspector insulin use: without fdc use Diabetes mellitus complication status: with kidney complications Diabetes mellitus complication detail: with chronic kidney disease Chronic kidney disease stage: unspecified stage Chronic gout without tophus, unspecified cause, unspecified site [id number] Gout site: unspecified site Gout etiology: unspecified cause Chronicity: chronic Presence of tophus: without tophus Gilbert disease E80.4 Anxiety F41.9 (6) Diabetes mellitus, type 2 Diabetes mellitus fdc insulin use: without extermination inspector use Diabetes mellitus complication status: with kidney complications Diabetes mellitus complication detail: with chronic kidney disease Chronic kidney disease stage: unspecified stage Qualified Code(s): E11.22 - Type 2 diabetes mellitus with diabetic chronic kidney disease (7) Gout Gout site: unspecified site Gout etiology: unspecified cause Chronicity: chronic Presence of tophus: without tophus Qualified Code(s): M1A.9XX0 - Chronic gout, unspecified, without tophus (tophi)
[2023-09-12] MEDS ORDERED: SERTRALINE HCL 50 MG TABLET PO SCH (21:00)
[2023-09-13 08:08] LABS: Basophils # (auto) 0.01 K/uL (0.00-0.20); Basophils % (auto) 0.2 %; Eosinophils # (auto) 0.06 K/uL (0.00-0.50); Eosinophils % (auto) 1.1 %; Hematocrit (blood only) 34.9 % (42.0-52.0); Hemoglobin 11.7 g/dl (14.0-18.0); Immature Granulocytes # (auto) 0.04 K/uL (0.01-0.20); Immature Granulocytes % (auto) 0.7 %; Lymphocytes # (auto) 0.52 K/uL (1.20-3.40); Lymphocytes % (auto) 9.2 %; Mean Corpuscular Hemoglobin 30.2 pg (25.0-34.0); Mean Corpuscular Hgb Conc 33.5 g/dL (32.0-36.0); Mean Corpuscular Volume 90.2 fL (80.0-100.0); Mean Platelet Volume 13.8 fL (9.4-12.4); Monocytes % (auto) 10.6 %; Neutrophils # (auto) 4.42 K/uL (1.40-6.50); Neutrophils % (auto) 78.2 %; Nucleated RBC # (auto) 0.02 K/uL (0.00-0.12); Nucleated RBC % (auto) 0.4 %; Platelet Count 88 K/uL (130-400); RDW Coefficient of Variation 18.9 % (11.5-14.5); RDW Standard Deviation 56.7 fL (36.4-46.3); Red Blood Count 3.87 M/uL (4.70-6.10); White Blood Count 5.65 K/ul (4.8-10.8)
[2023-09-13 08:16] LABS: INR 1.4 (0.9-1.1)
[2023-09-13 09:07] LABS: Albumin Globulin Ratio 1.7 (0.9-2); Albumin Level 3.4 gm/dl (3.4-5.0); BUN Creatinine Ratio 48.5 (10-20); Bilirubin,Total 3.4 mg/dl (0.2-1.0); Calcium 8.5 mg/dl (8.6-10.3); Creatinine Clr Calc Pharmacy 43.2 ml/min; Est GFR (African American) 45.7 ml/min; Est GFR (Non-African American) 39.5 ml/min; Potassium 3.8 mmol/L (3.5-5.1); Total Protein 5.4 gm/dl (6.0-8.3)
--- NOTE | 2023-09-13 12:22 | Hospitalist Progress Note ---
Date of Service September 13, 2023 Assessment & Plan (1) Elevated LFTs: Plan: With elevated total bilirubin at 4.1, and elevated AST/ALT/alkaline phosphatase, elevated INR, low platelets (chronic, worse in setting of recent human metapneumovirus infection)-secondary to hepatic congestion from right-sided heart failure. Initially there was concern for acute cholecystitis with choledocholithiasis although no RUQ pain on exam RUQ US with diffuse GB wall thickening and cholelithiasis but could be from edematous state MRCP showed trace pericardial effusion, trace pleural effusions, trace ascites, moderate body wall edema, gallbladder wall thickening with cholelithiasis-cannot exclude acute cholecystitis, and nondiagnostic evaluation to assess for a filling defect within the CBD due to motion artifact. However, the common bile duct is normal in course and caliber measuring up to 4 mm in diameter. There is no intrahepatic bile duct dilatation. General surgery consultation appreciated-does not feel this is an acute cholecystitis-no surgical intervention needed LFTs continue to slowly trend downward with IV diuresis- total bilirubin is down to 3.1, AST and ALT in the 300-400s, alkaline phosphatase mildly elevated INR high at 1.5 APAP level and alcohol level negative Hepatitis A, B, and C are negative As per review of up-to-date, human metapneumovirus is not known to cause hepatitis -Continue holding home atorvastatin and gemfibrozil -Continue to diurese but change to po Bumex 2mg daily from IV given rising BUN -add on aldactone 12.5mg po daily -will follow LFTs, INR, CBC (2) HFrEF (heart failure with reduced ejection fraction): Plan: With acute on chronic HFrEF and right-sided heart failure, nonischemic, severe with LVEF 15-20% he states since 2004. Also with severe MR-not a candidate for repair due to severe LV dysfunction He has declined to have ICD placed With abdominal bloating, ascites, elevated LFTs, and peripheral edema consistent with right-sided heart failure which is secondary to left-sided heart failure He was recently admitted for such and diuresed and sent home on a higher dose of Lasix 80 mg daily in addition to his enalapril and carvedilol as well as started on Jardiance He also reports having panic attacks recently when he tries to walk where he feels very short of breath but his vital signs are normal during the events Renal function decreased on admission and hyponatremia on admission -now renal function improving with diuresis and holding enalapril and Jardiance-creatinine down to 1.6, BUN up to 80, Na+ improved Appreciate cardiology consultation and CHF Clinic referral -switch home furosemide to Bumex 2mg po daily for improved GI absorption -holding home enalapril and Jardiance due to acute kidney injury-he never even started the Jardiance prior to admission -carvedilol was lowered to 12.5 Mg twice daily due to soft blood pressures -add on aldactone 12.5mg po daily and titrate up as able to -add on Entresto likely as outpt -Follow BMP Discussed that his condition has progressed in general. He has lived with an EF of 15% for 19 years but now it has started to affect his right heart leading to liver congestion and leg swelling. He is now much weaker. His kidney function is now affected. I brought up the idea of palliative care. He is not opposed to the idea. Will consult palliative care. He is still remains a full code for now. (3) MAIDA (acute kidney injury): Plan: Creatinine up to 2.03 on admission and continues to improve with diuresis. Now stable at 1.6-1.8 May need to accept some degree of renal failure in the setting of severe heart failure He is volume overloaded as above with poor forward flow from severely low EF No evidence of urinary obstruction Diurese as above Follow renal function, urine output (4) High anion gap metabolic acidosis: Plan: Alcohol level negative, lactate elevated at 3.6 on admission and now down to normal-likely from intravascular volume depletion Follow BMP (5) Poor balance: Plan: Reports baseline unsteady on his feet - consider rehabilitation on discharge PT/OT evaluations placed (6) Diabetes mellitus, type 2: Plan: HbA1c 6.0 [09/03/2023] and has been in the normal to prediabetic range for many years-he does not have diabetes He does not need blood sugar checks He is on Jardiance for his heart failure (7) Gout: Plan: Continue allopurinol renally dosed No current exacerbation (8) Gilbert disease: Plan: History of such but the current LFT elevation is not from this as he also has elevation of AST/ALT/alkaline phosphatase (9) Anxiety: Plan: Having increased panic attacks with his dyspnea from heart failure Patient says that the Zoloft made him feel "loopy" and would not want to continue taking it. Discontinued Zoloft. Plan VTE prophylaxis - heparin SQ Disposition -continued stay in PCU, PT recommending rehab stay-[facility] referral made. Not medically stable for discharge yet FULL CODE-discussed with patient at length-he declines an ICD because he doesn't like the idea of having a foreign object inside his body however he does want CPR/defibrillation, etc. in case of cardiac arrest. His CODE STATUS may need to be re-addressed soon. Admission and Anticipated Discharge Date Admission Date: September 08, 2023 Subjective Patient does not feel particularly better or worse. He is having difficulty sleeping. Not short of breath. Weak in general. Review of Systems Review of Systems: All systems reviewed & are unremarkable except as noted in Subjective Physical Exam Physical Exam: General: Awake, conversant Heart: S1, S2/regular rate and rhythm, no murmur rubs or gallops Lungs: Clear to auscultation bilaterally. Normal effort Abdomen: Soft/nontender/nondistended. No hepatosplenomegaly Extremities: No clubbing/cyanosis. 3+ pitting bilateral edema Behavior: Appropriate, cooperative Results & Data Results & Data Vital Signs (Past 12 Hours) Vital Signs Temp Pulse Pulse Resp BP Pulse Ox O2 Del Method 09/13/23 11:29 54 L 09/13/23 11:01 36.4 C L 56 L 17 105/73 96 Room Air 09/13/23 08:00 Room Air 09/13/23 07:06 36.7 C 62 17 120/62 99 Room Air 09/13/23 05:42 36.4 C L 56 L 14 98/64 L 99 Room Air 09/13/23 00:30 36.7 C 55 L 18 94/65 L 94 Room Air Laboratory Results Abnormal lab results 09/13/23 09/13/23 Range/Units 06:33 08:32 RBC 3.87 L (4.70-6.10) M/uL Hgb 11.7 L (14.0-18.0) g/dl Hct 34.9 L (42.0-52.0) % RDW Std Deviation 56.7 H (36.4-46.3) fL RDW Coeff of Candido 18.9 H (11.5-14.5) % Plt Count 88 L (130-400) K/uL MPV 13.8 H (9.4-12.4) fL Lymph # (Auto) 0.52 L (1.20-3.40) K/uL [place] # (Auto) 0.60 H (0.11-0.59) K/uL PT 15.0 H (9.0-12.0) Seconds INR 1.4 H (0.9-1.1) Sodium 132 L (136-145) mmol/L BUN 80 H (6-23) mg/dl Creatinine 1.65 H (0.6-1.4) mg/dl BUN/Creatinine Ratio 48.5 H (10-20) Glucose 147 H (70-99(Fasting)) mg/dl Calcium 8.5 L (8.6-10.3) mg/dl Total Bilirubin 3.4 H (0.2-1.0) mg/dl AST 228 H (13-39) U/L ALT 383 H (7-52) U/L Alkaline Phosphatase 235 H (34-104) U/L Total Protein 5.4 L (6.0-8.3) gm/dl Globulin 2.0 L (2.5-4.0) gm/dl PG Care Time/CCT Total # of Minutes Spent Total Time Spent with Patient: Total time spent is greater than 50% in coordination of care (as documented) at patient's floor/unit and/or counseling patient: Coding Level of Care Code 51702 SUB INP/OBS CARE 2/35MIN Diagnoses Elevated LFTs R79.89 HFrEF (heart failure with reduced ejection fraction) I50.20 MAIDA (acute kidney injury) N17.9 High anion gap metabolic acidosis E87.29 Poor balance R26.89 Type 2 diabetes mellitus with chronic kidney disease, without long-term current use of insulin, unspecified CKD stage E11.22 Diabetes mellitus byproduct engineer insulin use: without alf use Diabetes mellitus complication status: with kidney complications Diabetes mellitus complication detail: with chronic kidney disease Chronic kidney disease stage: unspecified stage Chronic gout without tophus, unspecified cause, unspecified site [id number] Gout site: unspecified site Gout etiology: unspecified cause Chronicity: chronic Presence of tophus: without tophus Gilbert disease E80.4 Anxiety F41.9 (6) Diabetes mellitus, type 2 Diabetes mellitus alf insulin use: without byproduct engineer use Diabetes mellitus complication status: with kidney complications Diabetes mellitus complication detail: with chronic kidney disease Chronic kidney disease stage: unspecified stage Qualified Code(s): E11.22 - Type 2 diabetes mellitus with diabetic chronic kidney disease (7) Gout Gout site: unspecified site Gout etiology: unspecified cause Chronicity: chronic Presence of tophus: without tophus Qualified Code(s): [id number].[id number] - Chronic gout, unspecified, without tophus (tophi)
[2023-09-14 06:45] LABS: Basophils # (auto) 0.01 K/uL (0.00-0.20); Basophils % (auto) 0.2 %; Eosinophils # (auto) 0.05 K/uL (0.00-0.50); Eosinophils % (auto) 0.9 %; Hematocrit (blood only) 35.6 % (42.0-52.0); Hemoglobin 11.9 g/dl (14.0-18.0); Immature Granulocytes # (auto) 0.03 K/uL (0.01-0.20); Immature Granulocytes % (auto) 0.5 %; Lymphocytes # (auto) 0.66 K/uL (1.20-3.40); Lymphocytes % (auto) 11.6 %; Mean Corpuscular Hemoglobin 30.1 pg (25.0-34.0); Mean Corpuscular Hgb Conc 33.4 g/dL (32.0-36.0); Mean Corpuscular Volume 90.1 fL (80.0-100.0); Mean Platelet Volume 13.7 fL (9.4-12.4); Monocytes # (auto) 0.56 K/uL (0.11-0.59); Monocytes % (auto) 9.9 %; Neutrophils # (auto) 4.36 K/uL (1.40-6.50); Neutrophils % (auto) 76.9 %; Platelet Count 92 K/uL (130-400); RDW Coefficient of Variation 19.5 % (11.5-14.5); RDW Standard Deviation 57.7 fL (36.4-46.3); Red Blood Count 3.95 M/uL (4.70-6.10); White Blood Count 5.67 K/ul (4.8-10.8)
[2023-09-14 07:18] LABS: Albumin Globulin Ratio 1.6 (0.9-2); Albumin Level 3.5 gm/dl (3.4-5.0); BUN Creatinine Ratio 45.1 (10-20); Bilirubin,Total 3.8 mg/dl (0.2-1.0); Calcium 8.7 mg/dl (8.6-10.3); Creatinine Clr Calc Pharmacy 41.2 ml/min; Est GFR (African American) 43.2 ml/min; Est GFR (Non-African American) 37.3 ml/min; Globulin 2.2 gm/dl (2.5-4.0); INR 1.3 (0.9-1.1); Potassium 3.9 mmol/L (3.5-5.1); Prothrombin Time 14.5 Seconds (9.0-12.0); Total Protein 5.7 gm/dl (6.0-8.3)
--- NOTE | 2023-09-14 14:55 | Hospitalist Progress Note ---
Date of Service September 14, 2023 Assessment & Plan (1) Elevated LFTs: Plan: With elevated total bilirubin at 4.1, and elevated AST/ALT/alkaline phosphatase, elevated INR, low platelets (chronic, worse in setting of recent human metapneumovirus infection)-secondary to hepatic congestion from right-sided heart failure. Initially there was concern for acute cholecystitis with choledocholithiasis although no RUQ pain on exam RUQ US with diffuse GB wall thickening and cholelithiasis but could be from edematous state MRCP showed trace pericardial effusion, trace pleural effusions, trace ascites, moderate body wall edema, gallbladder wall thickening with cholelithiasis-cannot exclude acute cholecystitis, and nondiagnostic evaluation to assess for a filling defect within the CBD due to motion artifact. However, the common bile duct is normal in course and caliber measuring up to 4 mm in diameter. There is no intrahepatic bile duct dilatation. General surgery consultation appreciated-does not feel this is an acute cholecystitis-no surgical intervention needed LFTs continue to slowly trend downward with IV diuresis- total bilirubin is down to 3.1, AST and ALT in the 300-400s, alkaline phosphatase mildly elevated INR high at 1.5 APAP level and alcohol level negative Hepatitis A, B, and C are negative As per review of up-to-date, human metapneumovirus is not known to cause hepatitis -Continue holding home atorvastatin and gemfibrozil -Continue to diurese but change to po Bumex 2mg daily from IV given rising BUN -add on aldactone 12.5mg po daily -will follow LFTs, INR, CBC (2) HFrEF (heart failure with reduced ejection fraction): Plan: With acute on chronic HFrEF and right-sided heart failure, nonischemic, severe with LVEF 15-20% he states since 2004. Also with severe MR-not a candidate for repair due to severe LV dysfunction He has declined to have ICD placed With abdominal bloating, ascites, elevated LFTs, and peripheral edema consistent with right-sided heart failure which is secondary to left-sided heart failure He was recently admitted for such and diuresed and sent home on a higher dose of Lasix 80 mg daily in addition to his enalapril and carvedilol as well as started on Jardiance He also reports having panic attacks recently when he tries to walk where he feels very short of breath but his vital signs are normal during the events Renal function decreased on admission and hyponatremia on admission -now renal function improving with diuresis and holding enalapril and Jardiance-creatinine down to 1.6, BUN up to 80, Na+ improved Appreciate cardiology consultation and CHF Clinic referral -switch home furosemide to Bumex 2mg po daily for improved GI absorption -holding home enalapril and Jardiance due to acute kidney injury-he never even started the Jardiance prior to admission -carvedilol was lowered to 12.5 Mg twice daily due to soft blood pressures -add on aldactone 12.5mg po daily and titrate up as able to -add on Entresto likely as outpt -Follow BMP Discussed that his condition has progressed in general. He has lived with an EF of 15% for 19 years but now it has started to affect his right heart leading to liver congestion and leg swelling. He is now much weaker. His kidney function is now affected. I brought up the idea of palliative care. He is not opposed to the idea. Palliative care consulted. He changed his CODE STATUS to a DNR/DNI today. (3) MAIDA (acute kidney injury): Plan: Creatinine up to 2.03 on admission and continues to improve with diuresis. Now stable at 1.6-1.8 May need to accept some degree of renal failure in the setting of severe heart failure He is volume overloaded as above with poor forward flow from severely low EF No evidence of urinary obstruction Diurese as above Follow renal function, urine output (4) High anion gap metabolic acidosis: Plan: Alcohol level negative, lactate elevated at 3.6 on admission and now down to normal-likely from intravascular volume depletion Follow BMP (5) Poor balance: Plan: Reports baseline unsteady on his feet - consider rehabilitation on discharge PT/OT on board Will need rehab upon discharge (6) Diabetes mellitus, type 2: Plan: HbA1c 6.0 [09/03/2023] and has been in the normal to prediabetic range for many years-he does not have diabetes He does not need blood sugar checks He is on Jardiance for his heart failure (7) Gout: Plan: Continue allopurinol renally dosed No current exacerbation (8) Gilbert disease: Plan: History of such but the current LFT elevation is not from this as he also has elevation of AST/ALT/alkaline phosphatase (9) Anxiety: Plan: Having increased panic attacks with his dyspnea from heart failure Patient says that the Zoloft made him feel "loopy" and would not want to continue taking it. Discontinued Zoloft. Plan VTE prophylaxis - heparin SQ Disposition -continued stay in PCU, PT recommending rehab stay-[facility] referral made. CODE STATUS changed to DNR/DNI after detailed conversation with the patient Admission and Anticipated Discharge Date Admission Date: September 08, 2023 Subjective Patient is coming to terms with his poor health in general. He now understands his condition is declining. Review of Systems Review of Systems: All systems reviewed & are unremarkable except as noted in Subjective Physical Exam Physical Exam: General: Awake, conversant Heart: S1, S2/regular rate and rhythm, no murmur rubs or gallops Lungs: Clear to auscultation bilaterally. Normal effort Abdomen: Soft/nontender/nondistended. No hepatosplenomegaly Extremities: No clubbing/cyanosis. 3+ pitting bilateral edema Behavior: Appropriate, cooperative Results & Data Results & Data Vital Signs (Past 12 Hours) Vital Signs Temp Pulse Pulse Resp BP Pulse Ox O2 Del Method 09/14/23 12:17 37.0 C 80 18 102/69 100 Room Air 09/14/23 07:56 37.0 C 53 L 18 103/66 100 Room Air 09/14/23 06:21 54 L 09/14/23 05:52 36.5 C 55 L 18 104/65 98 Room Air Laboratory Results Abnormal lab results 09/14/23 Range/Units 06:08 RBC 3.95 L (4.70-6.10) M/uL Hgb 11.9 L (14.0-18.0) g/dl Hct 35.6 L (42.0-52.0) % RDW Std Deviation 57.7 H (36.4-46.3) fL RDW Coeff of Candido 19.5 H (11.5-14.5) % Plt Count 92 L (130-400) K/uL MPV 13.7 H (9.4-12.4) fL Lymph # (Auto) 0.66 L (1.20-3.40) K/uL PT 14.5 H (9.0-12.0) Seconds INR 1.3 H (0.9-1.1) Sodium 133 L (136-145) mmol/L BUN 78 H (6-23) mg/dl Creatinine 1.73 H (0.6-1.4) mg/dl BUN/Creatinine Ratio 45.1 H (10-20) Glucose 143 H (70-99(Fasting)) mg/dl Total Bilirubin 3.8 H (0.2-1.0) mg/dl AST 189 H (13-39) U/L ALT 348 H (7-52) U/L Alkaline Phosphatase 228 H (34-104) U/L Total Protein 5.7 L (6.0-8.3) gm/dl Globulin 2.2 L (2.5-4.0) gm/dl PG Care Time/CCT Total # of Minutes Spent Total Time Spent with Patient: Total time spent is greater than 50% in coordination of care (as documented) at patient's floor/unit and/or counseling patient: Coding Level of Care Code 68986 SUB INP/OBS CARE 2/35MIN Diagnoses Elevated LFTs R79.89 HFrEF (heart failure with reduced ejection fraction) I50.20 MAIDA (acute kidney injury) N17.9 High anion gap metabolic acidosis E87.29 Poor balance R26.89 Type 2 diabetes mellitus with chronic kidney disease, without long-term current use of insulin, unspecified CKD stage E11.22 Diabetes mellitus chcf insulin use: without chcf use Diabetes mellitus complication status: with kidney complications Diabetes mellitus complication detail: with chronic kidney disease Chronic kidney disease stage: unspecified stage Chronic gout without tophus, unspecified cause, unspecified site [id number].[id number] Gout site: unspecified site Gout etiology: unspecified cause Chronicity: chronic Presence of tophus: without tophus Gilbert disease E80.4 Anxiety F41.9 (6) Diabetes mellitus, type 2 Diabetes mellitus chcf insulin use: without intermediate card tender use Diabetes mellitus complication status: with kidney complications Diabetes mellitus complication detail: with chronic kidney disease Chronic kidney disease stage: unspecified stage Qualified Code(s): E11.22 - Type 2 diabetes mellitus with diabetic chronic kidney disease (7) Gout Gout site: unspecified site Gout etiology: unspecified cause Chronicity: chronic Presence of tophus: without tophus Qualified Code(s): M1A.9XX0 - Chronic gout, unspecified, without tophus (tophi)
--- NOTE | 2023-09-15 00:37 | Palliative Care Consultation ---
Date of Consultation September 15, 2023 Assessment & Plan (1) Dyspnea and respiratory abnormalities: (2) Weakness generalized: (3) Anxiety: (4) Advanced care planning/counseling discussion: FAce to face ACP with pt x 25min He spoke with Dr Gomez earlier and has now changed code to DNR/DNI tells me he has been given a lot of information about his medical issues and progressive illness. we spoke about his heart failure, how he perceived that to be vs what he is coming to now understand he did not understand the concerns / implications of right heart failure + liver failure + kidney failure we spoke about how other organ systems start to fail whenever one major system is reaching advanced illness stages ie worsening HF leads to declines in lung, renal and liver fxn over time. HF patients often have end stage renal failure from intermodal dispatcher effects of the medications they needed lifelong to manage their HF. We discussed the changes to expect as heart failure patients near the end of their lives, with attention to: may feel increasingly breathless both during activity and at rest, persistent coughing or wheezing/sometimes productive of white or pink mucus and can be worse at night or when lying down; sometimes more physical pain may be present that can often be relieved by non pharmacological remedies such as PT, massage, etc., additionally cognitive impairments may worsen and as such impair the patient's ability to be interactive with their loved ones - this can sometimes get better with improved volume status but it is unlikely to resolve. We spoke about how end-of-life care in patients with heart failure is an additive process, whereby therapies to treat symptoms not alleviated by gu ideline-based medical therapy are integrated into the care of these individuals. Once traditional medical therapies and nonpharmacologic therapies have been exhausted, low-dose opioids are generally first-line adjuvant therapy to treat dyspnea. Sometimes, providers may be uncomfortable with utilization of more potent opiates, which is why collaboration with hospice at the [facility] will be useful. Finally, we discussed that as a patient transitions to the end of life with HF, there is so much more to do as far as reducing symptom burden and improving QOL - which we as providers can best address via a thoughtful ACP as we have discussed (and outlined above) in place. He asked how long we think he has and I advised that often, accurate prognostication is challenging in HF - this can be frustrating, but provides a basis for initiating end-of-life discussions. The [place] [employer] released a scientific statement to help clinicians best guide our patients: Initiate yearly heart failure reviews or advance care planning discussions. Utilize a HF hospitalization (which triples one-year mortality) as a bridge to either optimizing medical therapy or palliative care. Educate patients and families about the unpredictable, but usually terminal nature of HF, and the ever present danger of sudden cardiac (even when feeling well). Ascertain specific goals of care (e.g. quality of life vs. length of life, living/dying at home vs. hospital) Assess options for achieving these goals (e.g. initiating/handling device therapies including when and how to deactivate, hospice vs. serial hospital/critical care unit admissions). Assess resuscitation preferences at every hospitalizations and with declines in performance status. A free advance care planning packet for HF patients is available through the Heart [employer] of [place] website at: https://hfsa. org/fyvm-ugrvktk-ljhbrnabr-pbegtzt-hnhu-kngbivqq HF Risk Acute Decompensated Heart Failure National Registry (ADHERE) risk model (systolic blood pressure <=115 mmHg; BUN >=43 mg/dL; and serum [id number] >=2.75 mg/dL) HF Triggers Heart failure 1. Symptomatic in spite of optimal therapy (diuretics, ACEi, b ty, nitrates, digoxin, opioids, biventricular pacemaker) 2. Repeated hospital admissions 3. Intractable hypotension 4. Renal failure 5. Intractable hyponatremia 6. Cardiac cachexia 7. Cognitive impairment 8. Atrial fibrillation 9. Increasing frailty and dependence. I reviewed with pt he is demonstrating several concerning markers for end stage HF and the need to develop a plan that will align with his wishes/desires/preference is paramount to us as his medical team. We discussed the goals of hospice as a patient service and the goals of care; we discussed EOL trajectories and transitions chris the emotional impact of realizing mortality as a concrete reality from prior abstract considerations. Pt was reassured that no matter where they are along this trajectory, they are not alone - their medical team will remain by their side through their journey. Discussed the pros/cons of accepting help when especially weakened and distressed by pain- which would also help provide relief/decrease caregiver burden/strain. He wants time to think about this further and we agreed to ongoing discussions over the next few days. (5) Palliative care by specialist: Met with pt. Provided overview of Palliative Medicine, a subspecialty that provides specialized medical care for people living with a serious illness by offering a focus on quality of life. Palliative Medicine is often conflated with hospice: I advised patient/family that Palliative and hospice can be partners but we are not the same. It is important to understand the difference so that we may be informed, and not afraid. Palliative Medicine works to improve QOL through reduction of symptom burden/more control over their illness, for both the patient and family. Palliative medicine clinicians are board certified, specially-trained and another member of the patient's medical care team. We often provide an extra layer of support because our care is based on the needs of the patient, not the prognosis; as such, it's appropriate at any age/advancing stage of a serious illness and can be provided along with curative treatment. Palliative Medicine clinicians are also trained in advanced communication methodologies, to facilitate complex discussions about advanced illness planning, which are needed to help assure that the treatment choices match the patient's goals, aka delivering Goal Concordant care. Finally, we discussed that hospice is a visiting nurse service that focuses on care delivered at the very end of life for patients with terminal illness, with life expectancy less than 6 month. (6) Chronic systolic (congestive) heart failure: (7) Mitral regurgitation: Plan ACP discussion as noted above ongoing OP pall med clinic within 4 week of dc Thank you for allowing us to participate in the ongoing care of this patient. Please don't hesitate to call or page with any additional concerns. Dr. Alis Pulliam DNP Director, Palliative Care History of Present Illness Reason for Consultation: Severe CMP EF 15%, RHF, liver congestion, MAIDA Attending Physician: Stacey Gomez MD History of Present Illness Per admitting note: "Jonah Sandy is a 78-year-old male who presents to the ER with generalized weakness. He was recently hospitalized from September 02 to 2023 due to acute heart failure with reduced ejection fraction. On discharge yesterday he went home and made it down stairs to his basement where he was able to sit at his desk and have a shower. He did not have anything significant to eat or drink. When he tried to go upstairs he could only go up a few stairs at a time and had to recover on the top of the stairs for 45 minutes with what he describes as a panic attack with associated shortness of breath but no chest pain. He was unable to make it back to his bed and lied does on his kitchen floor all night. He denies falling asleep and thinks he was awake all night. He called EMS this morning who were able to help him get back to his bedroom but they asked him how he expected to continue to get around as he was generally so weak they recommended he come back to the ER which he agreed to. He has not taken any medications since discharge yesterday (had his morning medications in the hospital yesterday) He was recently admitted from September 02 - 2023 due to shortness of breath on exertion. He was diagnosed with metapneumovirus and acute on chronic heart failure with reduced ejection fraction. He was initially diuresed with Lasix 40mg IV BID, switched to 80mg PO daily and placed on Lasix 60mg PO daily on discharge (which he never had time to take). Initially his sodium and Cr responded to diuretics however yesterday his Cr did start to increase and sodium went back down to 131 2 days ago. In the ER labs were concerning for elevated transaminitis. He denies any abdominal pain at any time. LFTs were normal unremarkable during last admission (last took 3 days ago) with mildly raised total bilirubin and known diagnosis of Gilbert's syndrome." Jonah is seen bedside, no family present he is AAOx3 anxious and very talkative, very easily off topic/tangential and deflecting questions has had several d/w primary team re worsening medical issues tells me he feels if he has been living with his heart issues for almost 2 decades why today are things different he has not been willing to discuss ACP, goals beyond "fix everything" and mortality he has no caregiver support chart review indicates signif issues with dietary non adherence, does not follow cardiac HF diet, no label checks and most meals are from take out or prepared foods, he does not cook. recurrent HF admissions as noted above He has severe mitral regurgitation confirmed on current echo and he is not a candidate for repair due to severe left ventricular dysfunction Allergies Allergy/AdvReac Type Severity Reaction Status Date / Time No Known Drug Allergies Allergy Unknown Verified 09/02/23 19:53 Home Medications Medication Instructions Recorded Confirmed Type multivitamin (Daily Multi-Vitamin 0 tab PO DAILY 03/02/19 09/08/23 History tablet) aspirin 81 mg tablet,delayed 0 mg PO 1200 07/12/19 09/08/23 History release (Irineo Low Dose Aspirin) cholecalciferol (vitamin D3) 125 0 unit PO DAILY 12/12/20 09/08/23 History mcg (5,000 unit) capsule omega-3 fatty acids 1,000 mg 0 mg PO DAILY 12/12/20 09/08/23 History capsule (Fish Oil Concentrate) ascorbic acid (vitamin C) 100 mg 0 mg PO DAILY 03/10/23 09/08/23 History chewable tablet copper gluconate 2 mg tablet 0 mg PO DAILY 03/10/23 09/08/23 History zinc acetate 50 mg (zinc) capsule 0 mg PO DAILY 03/10/23 09/08/23 History allopurinol 100 mg tablet 0 mg PO BID 06/09/23 09/08/23 History carvedilol 25 mg tablet 25 mg PO BID #180 tabs 08/20/23 09/08/23 Rx enalapril maleate 10 mg tablet 10 mg PO DAILY #90 tabs 08/20/23 09/08/23 Rx potassium chloride 10 mEq 20 meq (2 x 10 mEq) PO DAILY #180 08/20/23 09/08/23 Rx tablet,extended release tabs atorvastatin 10 mg tablet 10 mg PO QPM 09/02/23 09/08/23 History furosemide 40 mg tablet 60 mg PO QPM 09/02/23 09/08/23 History gemfibrozil 600 mg tablet 0 mg PO BID 09/02/23 09/08/23 History empagliflozin 10 mg tablet 0 mg PO DAILY 09/08/23 09/08/23 History (Jardiance) lutein 25 mg-zeaxanthin 5 mg 0 cap PO DAILY 09/08/23 09/08/23 History capsule vitamin E 100 unit tablet 0 unit PO DAILY 09/08/23 09/08/23 History Patient History Medical History (Updated 09/15/23 @ 00:43 by Alis Pulliam DNP) Palliative care by specialist Advanced care planning/counseling discussion Weakness generalized Dyspnea and respiratory abnormalities Abnormal CBC Gout Gilbert disease Fatty liver Hypertension Hyperlipidemia Arrhythmia "irregular" - Follows with Dr. Krishnamurthy Spindle cell carcinoma Basal cell carcinoma Diabetes mellitus, type 2 niddm Congestive heart failure Surgical History S/P wisdom tooth extraction History of liver biopsy History of colonoscopy History of cardiac cath 2004. no stents Status post Mohs surgery x6 Family History Father Hearing loss Hypertension Mother Brain tumor Other No family history of adverse response to anesthesia No family history of bleeding disorder Denies family history of Ovarian cancer Prostate cancer Myocardial infarction Breast cancer Colorectal cancer Social History Smoking Status: Never smoker Second Hand Exposure: No; Do You Dip or Chew Tobacco: No; Hx Alcohol Use: No Hx Substance Use: No Preferred Language: Nepali Communication Ability: Effective Visual Impairment: No Limitations Hearing Ability: Normal Cloth Sponger Required: No Beliefs That Will Affect Care: None marital status: Current Living Situation: Alone current occupational status: retired How many Children do You have: 1 Feels Safe at Home: Yes Childhood Exposure to Second-Hand Smoke: No Diet: Weight Watchers caffeine: Yes (tea) during the past year weight has: remained stable Dental Care, Regularly: Yes Physical Activity Frequency: Daily Physical Activity Frequency Comment: Does Fit for Play. Seatbelt Use: always Sunscreen Use: No Assistive Devices: Scooter/Electric Scooter and Walker Review of Systems Review of Systems: All systems reviewed & are unremarkable except as noted in Subjective Physical Exam Physical Exam: limited exam frail elderly male generalized weakness MM dry dentition fair conversational dyspnea, speaks in 3-4 word sentences use of accessory muscles noted lungs diminished with few crackles tachy s1s2, +murmur abd soft, not tender BS+ generalized BLE EDEMA 2+ AAOx3 Results & Data Vital Signs (Past 12 Hours) Vital Signs Temp Pulse Pulse Resp BP Pulse Ox O2 Del Method 09/14/23 22:41 36.6 C 54 L 18 108/63 99 Room Air 09/14/23 19:24 36.5 C 58 L 18 107/64 100 Room Air 09/14/23 15:13 36.7 C 72 18 103/68 96 Room Air 09/14/23 14:05 72 Laboratory Results data reviewed Diagnostic Findings data reviewed PG Care Time/CCT Total # of Minutes Spent Total Time Spent: 110 Total Time Spent with Patient: Total time spent is greater than 50% in coordination of care (as documented) at patient's floor/unit and/or counseling patient: I spent 110 minutes overall addressing this case: 15 min in medical data review/discussion with referring provider(s) and/or preparation for the visit 20 min in direct interaction with the patient/exam 45 min in Advance Care Planning/Goals of Care discussions as detailed above in note (must be >16min) 15 min in subsequent review and synthesis of assessment and plan 15 min communicating with other providers regarding the patient's case: primary team and nursing Advanced Care Planning 14592 Advanced Care Planning 30 Min 39856 Advanced Care Planning Additional 30 [place] [address] IN/OBS CONSULT LVL 4,60M Patient Type New History Comprehensive Exam Comprehensive Medical Decision Making High Complexity Diagnoses Dyspnea and respiratory abnormalities R06.00; R06.89 Weakness generalized R53.1 Anxiety F41.9 Advanced care planning/counseling discussion Z71.89 Palliative care by specialist Z51.5 Chronic systolic (congestive) heart failure I50.22 Mitral regurgitation I34.0 Additional Codes Advanced Care Planning - 86917 Advanced Care Planning 30 Min: 50200 Advanced Care Planning 30 Min ([id number]) Advanced Care Planning - 45195 Advanced Care Planning Additional 30 Min: 21848 Advanced Care Planning Additional 30 Min ([id number])
[2023-09-15 07:17] LABS: Eosinophils # (auto) 0.06 K/uL (0.00-0.50); Eosinophils % (auto) 1.3 %; Hematocrit (blood only) 34.8 % (42.0-52.0); Hemoglobin 11.4 g/dl (14.0-18.0); Immature Granulocytes # (auto) 0.03 K/uL (0.01-0.20); Immature Granulocytes % (auto) 0.7 %; Lymphocytes # (auto) 0.58 K/uL (1.20-3.40); Lymphocytes % (auto) 12.6 %; Mean Corpuscular Hemoglobin 29.8 pg (25.0-34.0); Mean Corpuscular Hgb Conc 32.8 g/dL (32.0-36.0); Mean Corpuscular Volume 90.9 fL (80.0-100.0); Mean Platelet Volume 13.2 fL (9.4-12.4); Monocytes # (auto) 0.55 K/uL (0.11-0.59); Monocytes % (auto) 11.9 %; Neutrophils # (auto) 3.39 K/uL (1.40-6.50); Neutrophils % (auto) 73.5 %; Platelet Count 78 K/uL (130-400); RDW Coefficient of Variation 19.6 % (11.5-14.5); RDW Standard Deviation 59.6 fL (36.4-46.3); Red Blood Count 3.83 M/uL (4.70-6.10); White Blood Count 4.61 K/ul (4.8-10.8)
[2023-09-15 07:32] LABS: Albumin Globulin Ratio 1.5 (0.9-2); Albumin Level 3.4 gm/dl (3.4-5.0); BUN Creatinine Ratio 44.8 (10-20); Bilirubin,Total 3.9 mg/dl (0.2-1.0); Calcium 8.7 mg/dl (8.6-10.3); Creatinine Clr Calc Pharmacy 39.3 ml/min; Est GFR (African American) 40.9 ml/min; Est GFR (Non-African American) 35.3 ml/min; Globulin 2.2 gm/dl (2.5-4.0); Total Protein 5.6 gm/dl (6.0-8.3)
[2023-09-15 07:33] VITALS: TEMP 97.5; O2SAT 98
[2023-09-15 07:41] LABS: INR 1.4 (0.9-1.1); Prothrombin Time 14.6 Seconds (9.0-12.0)
--- NOTE | 2023-09-15 10:32 | Discharge Summary ---
Date of Service September 15, 2023 Admission HPI Per Admitting Provider Jonah Sandy is a 78-year-old male who presents to the ER with generalized weakness. He was recently hospitalized from September 02 to 2023 due to acute heart failure with reduced ejection fraction. On discharge yesterday he went home and made it down stairs to his basement where he was able to sit at his desk and have a shower. He did not have anything significant to eat or drink. When he tried to go upstairs he could only go up a few stairs at a time and had to recover on the top of the stairs for 45 minutes with what he describes as a panic attack with associated shortness of breath but no chest pain. He was unable to make it back to his bed and lied does on his kitchen floor all night. He denies falling asleep and thinks he was awake all night. He called EMS this morning who were able to help him get back to his bedroom but they asked him how he expected to continue to get around as he was generally so weak they recommended he come back to the ER which he agreed to. He has not taken any medications since discharge yesterday (had his morning medications in the hospital yesterday) He was recently admitted from September 02 - 2023 due to shortness of breath on exertion. He was diagnosed with metapneumovirus and acute on chronic heart failure with reduced ejection fraction. He was initially diuresed with Lasix 40mg IV BID, switched to 80mg PO daily and placed on Lasix 60mg PO daily on di scharge (which he never had time to take). Initially his sodium and Cr responded to diuretics however yesterday his Cr did start to increase and sodium went back down to 131 2 days ago. In the ER labs were concerning for elevated transaminitis. He denies any abdominal pain at any time. LFTs were normal unremarkable during last admission (last took 3 days ago) with mildly raised total bilirubin and known diagnosis of Gilbert's syndrome. Admission Exam Per Admitting Provider Constitutional: well developed; + not well nourished and no acute distress Eyes: PERRL, conjunctivae normal, anicteric sclerae ENMT: external ear and nose normal, oropharynx normal Respiratory: normal respiratory effort, lungs clear to auscultation Cardiovascular: Rate/Rhythm: regular rate and regular rhythm Heart Sounds: + murmur (holosystolic murmur) Extremities: normal capillary refill and + pedal edema (2+ to abdomen); no calf tenderness Gastrointestinal (Abdomen): normal bowel sounds, soft, nontender, no hepatosplenomegaly Skin: no rashes, warm and dry (no areas of cellulitis noted) Neurologic: moves all extremities and awake; not confused Psychiatric: A+Ox3, euthymic affect Principal Diagnosis Generalized weakness Acute on chronic systolic congestive heart failure Acute kidney injury Right heart failure Liver congestion Discharge Exam General: Awake, conversant Heart: S1, S2/regular rate and rhythm, no murmur rubs or gallops Lungs: Clear to auscultation bilaterally. Normal effort Abdomen: Soft/nontender/nondistended. No hepatosplenomegaly Extremities: No clubbing/cyanosis. 3+ pitting bilateral edema Behavior: Appropriate, cooperative Discharge Data Allergies Allergy/AdvReac Type Severity Reaction Status Date / Time No Known Drug Allergies Allergy Unknown Verified 09/02/23 19:53 Consultations 09/08/23 11:42 ED Decision to Admit Stat 09/08/23 21:29 Consult Cardiology Routine 09/11/23 08:29 [facility] Referral Routine 09/13/23 12:16 Consult Palliative Care Routine Ordered Studies 09/08/23 08:58 US gallbladder Stat 09/08/23 11:15 MR MRCP Stat Hospital Course (1) Elevated LFTs: With elevated total bilirubin at 4.1, and elevated AST/ALT/alkaline phosphatase, elevated INR, low platelets (chronic, worse in setting of recent human metapneumovirus infection)-secondary to hepatic congestion from right-sided heart failure. Initially there was concern for acute cholecystitis with choledocholithiasis although no RUQ pain on exam RUQ US with diffuse GB wall thickening and cholelithiasis but could be from edematous state MRCP showed trace pericardial effusion, trace pleural effusions, trace ascites, moderate body wall edema, gallbladder wall thickening with cholelithiasis-cannot exclude acute cholecystitis, and nondiagnostic evaluation to assess for a filling defect within the CBD due to motion artifact. However, the common bile duct is normal in course and caliber measuring up to 4 mm in diameter. There is no intrahepatic bile duct dilatation. General surgery consultation appreciated-does not feel this is an acute cholecystitis-no surgical intervention needed LFTs continue to slowly trend downward with IV diuresis- total bilirubin is down to 3.1, AST and ALT in the 300-400s, alkaline phosphatase mildly elevated INR high at 1.5 APAP level and alcohol level negative Hepatitis A, B, and C are negative As per review of up-to-date, human metapneumovirus is not known to cause hepatitis -Continue holding home atorvastatin and gemfibrozil -Continue to diurese with po Bumex 2mg daily -add on aldactone 12.5mg po daily (2) HFrEF (heart failure with reduced ejection fraction): With acute on chronic HFrEF and right-sided heart failure, nonischemic, severe with LVEF 15-20% he states since 2004. Also with severe MR-not a candidate for repair due to severe LV dysfunction He has declined to have ICD placed With abdominal bloating, ascites, elevated LFTs, and peripheral edema consistent with right-sided heart failure which is secondary to left-sided heart failure He was recently admitted for such and diuresed and sent home on a higher dose of Lasix 80 mg daily in addition to his enalapril and carvedilol as well as started on Jardiance He also reports having panic attacks recently when he tries to walk where he feels very short of breath but his vital signs are normal during the events Renal function decreased on admission and hyponatremia on admission -now renal function improving with diuresis and holding enalapril and Jardiance-creatinine down to 1.6, BUN up to 80, Na+ improved Appreciate cardiology consultation and CHF Clinic referral -switch home furosemide to Bumex 2mg po daily for improved GI absorption -holding home enalapril and Jardiance due to acute kidney injury-he never even started the Jardiance prior to admission -carvedilol was lowered to 12.5 Mg twice daily due to soft blood pressures -add on aldactone 12.5mg po daily and titrate up as able to -add on Entresto likely as outpt -Follow BMP Discussed that his condition has progressed in general. He has lived with an EF of 15% for 19 years but now it has started to affect his right heart leading to liver congestion and leg swelling. He is now much weaker. His kidney function is now affected. I brought up the idea of palliative care. He is not opposed to the idea. Palliative care consulted, will see him outpatient. He changed his CODE STATUS to a DNR/DNI (3) MAIDA (acute kidney injury): Creatinine up to 2.03 on admission and continues to improve with diuresis. Now stable at 1.6-1.8 May need to accept some degree of renal failure in the setting of severe heart failure He is volume overloaded as above with poor forward flow from severely low EF No evidence of urinary obstruction Diurese as above Follow renal function, urine output (4) High anion gap metabolic acidosis: Alcohol level negative, lactate elevated at 3.6 on admission and now down to normal-likely from intravascular volume depletion Follow BMP (5) Poor balance: Reports baseline unsteady on his feet - consider rehabilitation on discharge PT/OT on board Needing rehab upon discharge (6) Diabetes mellitus, type 2: HbA1c 6.0 [09/03/2023] and has been in the normal to prediabetic range for many years-he does not have diabetes He does not need blood sugar checks Jardiance on hold (7) Gout: Allopurinol discontinued per patient's request No current exacerbation (8) Gilbert disease: History of such but the current LFT elevation is not from this as he also has elevation of AST/ALT/alkaline phosphatase (9) Anxiety: Having increased panic attacks with his dyspnea from heart failure Patient says that the Zoloft made him feel "loopy" and would not want to cont inue taking it. Discontinued Zoloft. Plan Discharge today CODE STATUS changed to DNR/DNI after detailed conversation with the patient Total Time Total Time Spent Total Time Spent (In Minutes): 35 Discharge Plan Discharge Items Patient Disposition: Transfer [facility] Fac Reason For Visit: MAIDA, ACUTE JANA, ELEVATED LFTS Discharge Diagnosis: Generalized weakness Acute on chronic systolic congestive heart failure Acute kidney injury Right heart failure Liver congestion Activity: As commented below Activity Comment: Per PT/OT recommendations Non-emergency contact: Primary Care Provider Call non-emergency contact if: you have any medication questions and your symptoms worsen Follow-up/Referrals: Radha Banks MD [Primary Care Provider] - Stephanie Nam PA-C [[employer]ician Manufacturing [employer] Controller] - 09/18/23 10:30 am Diet: Low Sodium (2gm) Addtl Attending Provider Instructions: Advised to follow-up with PCP in 1 week Advised to follow-up with palliative care and pain 4 weeks Advised to follow-up with CHF clinic in 1 week Pending Studies at Discharge: No Stand-Alone Forms: My [facility] Skilled Items Patient informed of condition?: Yes DNR: Yes Discharge Level of Care: Skilled Communicable Disease: No Discharge Prognosis: Other Lines: None Urinary Catheter: No Medications and DC Order Prescriptions: New carvedilol 12.5 mg Tablet 12.5 mg PO BIDM 30 Days Qty: 60 0RF spironolactone 25 mg Tablet 12.5 mg PO DAILY 30 Days Qty: 15 0RF bumetanide 1 mg Tablet 2 mg PO QAM 30 Days Qty: 60 0RF Continued cholecalciferol (vitamin D3) 125 mcg (5,000 unit) capsule 0 unit PO DAILY Rx Instructions: Unable to verify OTC meds with patient/family/pharmacy at this date/time. omega-3 fatty acids [Fish Oil Concentrate] 1,000 mg capsule 0 mg PO DAILY Rx Instructions: Unable to verify OTC meds with patient/family/pharmacy at this date/time. multivitamin [Daily Multi-Vitamin] tablet 0 tab PO DAILY Rx Instructions: Unable to verify OTC meds with patient/family/pharmacy at this date/time. ascorbic acid (vitamin C) 100 mg tablet,chewable 0 mg PO DAILY Rx Instructions: Unable to verify OTC meds with patient/family/pharmacy at this date/time. copper gluconate 2 mg tablet 0 mg PO DAILY Rx Instructions: Unable to verify OTC meds with patient/family/pharmacy at this date/time. zinc acetate 50 mg (zinc) capsule 0 mg PO DAILY Rx Instructions: Unable to verify OTC meds with patient/family/pharmacy at this date/time. aspirin [Irineo Low Dose Aspirin] 81 mg Tablet,Delayed Release (Dr/Ec) 0 mg PO 1200 Rx Instructions: Unable to verify OTC meds with patient/family/pharmacy at this date/time. vitamin E 100 unit Tablet 0 unit PO DAILY Rx Instructions: Unable to verify OTC meds with patient/family/pharmacy at this date/time. lutein-zeaxanthin 25-5 mg Capsule 0 cap PO DAILY Rx Instructions: Unable to verify OTC meds with patient/family/pharmacy at this date/time. Discontinued carvedilol 25 mg tablet 25 mg PO BID Qty: 180 3RF enalapril maleate 10 mg tablet 10 mg PO DAILY Qty: 90 3RF potassium chloride 10 mEq tablet extended release 20 meq PO DAILY Qty: 180 3RF allopurinol 100 mg tablet 0 mg PO BID Rx Instructions: Unable to verify medication with patient/family at this date/time. Last filled 05/21/23 x90 day supply: Original directions 100mg by mouth twice daily, however on 06/09/23 additional note placed in system showed 50mg by mouth twice daily. furosemide 40 mg tablet 60 mg PO QPM atorvastatin 10 mg tablet 10 mg PO QPM gemfibrozil 600 mg tablet 0 mg PO BID Rx Instructions: Unable to verify medication with patient/family at this date/time. Last filled 05/21/23 x90 day supply: Original directions 600mg by mouth twice daily, however on 09/02/23 additional note placed in system showed 300mg by mouth twice daily 30 mins prior to meals. Jardiance 10 mg tablet 0 mg PO DAILY Rx Instructions: Unable to verify medication with patient/family/pharmacy at this date/time. Original Directions: 10mg by mouth daily Discharge Orders: Discharge Order- CHF (Routine); Ordered 09/15/23 Ordered By: Stacey Gomez Admission Data Admit Date/Time: 09/08/23 11:18 Attending Provider: Stacey Gomez Admit Provider: Marques Verdin Primary Care Provider: Radha Banks Other Providers: Marques Verdin; Kash Waite; [facility]; Stephanie Nam; Alis Pulliam; Josias Gutiérrez Other Interventions: Discharge Summary Assessment (RN) Last Done: 09/15/23 13:29 Coding Level of Care Code 15587 INP/OBS DISCH >30 MIN Diagnoses Elevated LFTs R79.89 HFrEF (heart failure with reduced ejection fraction) I50.20 MAIDA (acute kidney injury) N17.9 High anion gap metabolic acidosis E87.29 Poor balance R26.89 Type 2 diabetes mellitus with chronic kidney disease, without long-term current use of insulin, unspecified CKD stage E11.22 Chronic kidney disease stage: unspecified stage Diabetes mellitus complication detail: with chronic kidney disease Diabetes mellitus complication status: with kidney complications 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
[2023-09-15 11:14] VITALS: RESP 22
[2023-09-15 13:32] VITALS: BP 90/67; PULSE 61
== END 2023-09-15 15:40 | DRG 441 ==
LOC: ED 07:35 → EDINP 11:18 → SUATTDRO 11:18 → 2S 16:50